=== PATIENT | male | born 1985 | race Hispanic/Latino ===

== ENCOUNTER 2017-04-28 02:24 | Inpatient (IN) | payer MEDICAID ==
[2017-04-28 02:25] VITALS: BMI 37.6
--- NOTE | 2017-04-28 03:23 | ED PDOC ---
Arrival/HPI - General Chief Complaint: Psychiatric Evaluation Time Seen by Provider: 04/28/17 02:46 Historian: Patient, Other (medical record) - History of Present Illness Narrative History of Present Illness (Text): 32yoM, who was recently discharged from OSH for suicidal ideation/cutting and now recurrent thoughts to harm himself with superficial abrasions to the chest wall, but no n/v/seay/dizziness/sob/chest pain/abdomen pain/numbness/tingling/ loss of limb function/pain with urination/thoughts to harm others or hallucinations. 04/28/17 03:20 Time/Duration: Prior to Arrival Symptom Onset: Gradual Symptom Course: Unchanged Quality: Other (no pain) Activities at Onset: Rest Context: Sitting Past Medical History - Provider Review Nursing Documentation Reviewed: Yes - Travel History Have you recently traveled outside [place] w/in the past 3 mons?: No - Infectious Disease Hx of Infectious Diseases: None - Cardiac Hx Cardiac Disorders: No Hx Hypertension: No - Pulmonary Hx Respiratory Disorders: No Hx Tuberculosis: No - Neurological Hx Neurological Disorder: No Hx Seizures: No - HEENT Hx HEENT Disorder: No - Renal Hx Renal Disorder: No - Endocrine/Metabolic Hx Endocrine Disorders: No - Hematological/Oncological Hx Blood Disorders: No - Integumentary Hx Dermatological Disorder: No - Musculoskeletal/Rheumatological Hx Musculoskeletal Disorders: No - Gastrointestinal Hx Gastrointestinal Disorders: No - Genitourinary/Gynecological Hx Genitourinary Disorders: No Hx Sexually Transmitted Diseases: No - Psychiatric Hx Anxiety: Yes Hx Depression: Yes Hx Substance Use: Yes - Anesthesia Hx Anesthesia: No Hx Anesthesia Reactions: No Family/Social History - Physician Review Nursing Documentation Reviewed: Yes Family/Social History: Unknown Family HX Smoking Status: Heavy Smoker > 10 Cigarettes Daily Hx Alcohol Use: No Hx Substance Use: Yes Allergies/Home Meds Allergies/Adverse Reactions: Allergies No Known Allergies Allergy (Verified 04/29/17 03:02) Review of Systems - Review of Systems Constitutional: Normal Eyes: Normal ENT: Normal Respiratory: Normal Cardiovascular: Normal Gastrointestinal: Normal Genitourinary Male: Normal Musculoskeletal: Normal Skin: Other (chest wall superficial abrasions multiple) Neurological: Normal Endocrine: Normal Hemo/Lymphatic: Normal Psychiatric: Anxiety, Depression, Suicidal Ideation Physical Exam Vital Signs Reviewed: Yes Vital Signs Temp Pulse Resp BP Pulse Ox 04/28/17 11:00 65 19 135/87 99 04/28/17 09:04 69 17 137/90 99 04/28/17 09:03 97 F L 72 18 138/96 H 98 04/28/17 08:00 72 16 144/94 H 98 04/28/17 05:18 97.9 F 65 19 140/100 H 100 04/28/17 02:25 97.9 F 68 18 150/102 H 96 Temperature: Afebrile Blood Pressure: Hypertensive Pulse: Regular Respiratory Rate: Normal Appearance: Positive for: Well-Appearing, Non-Toxic, Comfortable Pain Distress: None Mental Status: Positive for: Alert and Oriented X 3 - Systems Exam Head: Present: Atraumatic, Normocephalic Pupils: Present: PERRL Extroacular Muscles: Present: EOMI Conjunctiva: Present: Normal Ears: Present: Normal Mouth: Present: Moist Mucous Membranes Pharnyx: Present: Normal Nose (External): Present: Atraumatic Nose (Internal): Present: Normal Inspection Neck: Present: Normal Range of Motion Respiratory/Chest: Present: Clear to Auscultation, Good Air Exchange Cardiovascular: Present: Regular Rate and Rhythm Abdomen: No: Tenderness, Distention, Normal Bowel Sounds, Peritoneal Signs, Rebound, Guarding, McBurney's Point Tender, Rovsing's Sign Present, Hernias, Feeding Tubes, Ostomy Tubes, Mass/Organomegaly, Scars, Other Back: Present: Normal Inspection Upper Extremity: Present: Normal Inspection Lower Extremity: Present: Normal Inspection Neurological: Present: GCS=15, CN II-XII Intact, Speech Normal, Motor Func Grossly Intact Skin: Present: Warm, Other (anterior chest wall with multipel superficial abrasions) Psychiatric: Present: Alert, Oriented x 3, Anxious, Depressed Mood, Suicidal Ideation. No: Normal Insight, Normal Concentration, Normal Affect, Normal Mood , Agitated, Homicidal Ideation, Delusional, Hallucinations, Intoxicated, Lethargic, Other Medical Decision Making ED Course and Treatment: 32yoM, who was recently discharged from OSH for suicidal ideation/cutting and now recurrent thoughts to harm himself with superficial abrasions to the chest wall, but no n/v/seay/dizziness/sob/chest pain/abdomen pain/numbness/tingling/ loss of limb function/pain with urination/thoughts to harm others or hallucinations. bacitracin ointment to wounds 04/28/17 03:25 04/28/17 03:26 ECG: NSR 04/28/17 04:01 wbc 14 hb 14 plts 265 Trop < 0.01 04/28/17 04:02 CXR no acute 04/28/17 05:59 UA LE/Nit neg 04/28/17 05:59 04/28/17 06:01 PES awaiting psychiatry input. 04/28/17 06:[address] Templeton to fu. 04/28/17 07:16 Dr. Campos psychiatry stated will come and eval pt in the ED. - Lab Interpretations Lab Results: 04/28/17 03:03 04/28/17 03:03 Lab Results 04/28/17 04:40: Urine Opiates Screen Negative, Urine Methadone Screen Negative, Ur Barbiturates Screen Negative, Ur Phencyclidine Scrn Negative, Ur Amphetamines Screen Negative, U Benzodiazepines Scrn Positive, U Oth Cocaine Metabols Negative, U Cannabinoids Screen Negative 04/28/17 04:40: Urine Color Yellow, Urine Appearance Clear, Urine pH 6.0, Ur Specific [place] 1.025, Urine Protein Negative, Urine Glucose (UA) Negative, Urine Ketones Trace H, Urine Blood Negative, Urine Nitrate Negative, Urine Bilirubin Negative, Urine Urobilinogen 0.2, Ur Leukocyte Esterase Negative 04/28/17 03:03: Alcohol, Quantitative < 10 04/28/17 03:03: Salicylates < 1 L, Acetaminophen < 10.0 L 04/28/17 03:03: Sodium 142, Potassium 4.2, Chloride 101, Carbon Dioxide 31, Anion Gap 14, BUN 18, Creatinine 1.0, Est GFR ( Amer) > 60, Est GFR (Non- Af Amer) > 60, Random Glucose 103, Calcium 10.2, Total Bilirubin 0.2, AST 34, ALT 35, Alkaline Phosphatase 81, Troponin I < 0.01, Total Protein 7.4, Albumin 4.3, Globulin 3.1, Albumin/Globulin Ratio 1.4 04/28/17 03:03: WBC 14.8 H, RBC 4.80, Hgb 14.9, Hct 44.0, MCV 91.7, MCH 31.0, MCHC 33.9, RDW 12.0, Plt Count 265, MPV 12.1 H, Gran % 70.9 H, Lymph % (Auto) 19.9 L, [place] % (Auto) 7.4 H, Eos % (Auto) 1.6, Baso % (Auto) 0.2, Gran # 10.46 H , Lymph # (Auto) 2.9, [place] # (Auto) 1.1 H, Eos # (Auto) 0.2, Baso # (Auto) 0.03 I have reviewed the lab results: Yes - RAD Interpretation Radiology Orders: 04/28/17 03:08 CHEST PORTABLE [RAD] Stat [facility] Director: ED Physician (cxr no acute) - EKG Interpretation Interpreted by ED Physician: Yes (NSR) Type: 12 lead EKG - Medication Orders Current Medication Orders: Acetaminophen (Tylenol 325mg Tab) 650 mg PO Q4 PRN PRN Reason: Pain, moderate (4-7) Last Admin: 04/30/17 18:39 Dose: 650 mg Re-Assess: MAR Pain/Vitals Document 04/30/17 19:39 WP (Rec: 05/01/17 03:26 WP [id number]) Pain Reassessment Is This A Pain ReAssessment? Yes Sleep Is patient sleeping during reassessment? Yes Al Hydrox/Mg Hydrox/Simethicone (Maalox Plus 30 Ml) 30 ml PO DAILY PRN PRN Reason: Upset Stomach Bacitracin (Bacitracin) 1 gm TOP [facility] Last Admin: 05/09/17 22:00 Dose: 1 appful Clonazepam (Klonopin) 1 mg PO TID JUDAH PRN Reason: Protocol Last Admin: 05/09/17 17:24 Dose: 1 mg Behavioural Document 05/09/17 17:24 RAYA (Rec: 05/09/17 17:24 RAYA [id number]) Maintenance Maintenance Dose Yes Re-Assess: Reassess Psych Meds Document 05/09/17 18:24 RAYA (Rec: 05/09/17 19:09 RAYA [id number]) Reassess Psych Med Effective Diphenhydramine HCl (Benadryl) 50 mg IM Q6H PRN PRN Reason: Agitation Last Admin: 05/08/17 18:45 Dose: 50 mg IM Administration Charges Document 05/08/17 18:45 ABO (Rec: 05/08/17 18:45 ABO [id number]) Injection Site MAR Injection Site Left Gluteus Medius Charges for Administration # of IM Administrations 1 Diphenhydramine HCl (Benadryl) 50 mg PO Q6H PRN PRN Reason: Agitation Last Admin: 05/09/17 10:52 Dose: 50 mg Divalproex Sodium (Depakote Dr(*Bid*)) 500 mg PO AMHS JUDAH PRN Reason: Protocol Last Admin: 05/09/17 21:03 Dose: 500 mg Behavioural Document 05/09/17 21:03 CLI (Rec: 05/09/17 21:03 CLI [id number]) Maintenance Maintenance Dose Yes Re-Assess: Reassess Psych Meds Document 05/09/17 22:03 CLI (Rec: 05/10/17 00:07 CLI [id number]) Reassess Psych Med Effective Fluoxetine HCl (Prozac) 40 mg PO DAILY UJDAH Last Admin: 05/09/17 08:20 Dose: 40 mg Gabapentin (Neurontin) 400 mg PO TID JUDAH PRN Reason: Protocol Last Admin: 05/09/17 17:24 Dose: 400 mg Behavioural Document 05/09/17 17:24 RAYA (Rec: 05/09/17 17:24 RAYA [id number]) Maintenance Maintenance Dose Yes Re-Assess: Reassess Psych Meds Document 05/09/17 18:24 RAYA (Rec: 05/09/17 19:09 RAYA [id number]) Reassess Psych Med Effective Haloperidol (Haldol) 5 mg PO Q6H PRN; Protocol PRN Reason: Agitation Last Admin: 05/09/17 10:52 Dose: 5 mg Behavioural Document 05/09/17 10:52 RAYA (Rec: 05/09/17 10:52 RAYA [id number]) Maintenance Maintenance Dose No Nonmedicinal Nonmedicinal Interventions See nurse's notes Behavior Behavior for Medication: Anxiety Re-Assess: Reassess Psych Meds Document 05/09/17 11:52 RAYA (Rec: 05/09/17 12:15 RAYA [id number]) Reassess Psych Med Effective Haloperidol Lactate (Haldol) 5 mg IM Q6H PRN PRN Reason: Agitation Last Admin: 05/08/17 18:44 Dose: 5 mg IM Administration Charges Document 05/08/17 18:44 ABO (Rec: 05/08/17 18:44 ABO [id number]) Charges for Administration # of IM Administrations 1 Behavioural Document 05/08/17 18:44 ABO (Rec: 05/08/17 18:44 ABO [id number]) Maintenance Maintenance Dose No Nonmedicinal Nonmedicinal Interventions See nurse's notes Behavior Behavior for Medication: Continuous pacing/restlessness Re-Assess: Reassess Psych Meds Document 05/08/17 19:44 WP (Rec: 05/08/17 22:31 WP [id number]) Reassess Psych Med Effective Ibuprofen (Motrin Tab) 400 mg PO Q6H PRN PRN Reason: Pain, Mild (1-3) Last Admin: 05/09/17 09:46 Dose: 400 mg MAR Pain/Vitals Document 05/09/17 09:46 RAYA (Rec: 05/09/17 09:47 RAYA [id number]) Pain Reassessment Is This A Pain ReAssessment? No Sleep Is patient sleeping during reassessment? No Presence of Pain Presence of Pain Yes Pain Scale Used Pain Scale Used Numeric Location Left, Right or Bilateral Right Upper or Lower Upper Pain Location Body Site Thigh Description Intermittent Intensity 3 Pain Behavior Rubbing Site Re-Assess: MAR Pain/Vitals Document 05/09/17 10:46 RAYA (Rec: 05/09/17 10:49 RAYA [id number]) Pain Reassessment Is This A Pain ReAssessment? Yes Sleep Is patient sleeping during reassessment? No Presence of Pain Presence of Pain No Lorazepam (Ativan) 2 mg IM Q6H PRN; Protocol PRN Reason: Agitation Last Admin: 05/08/17 19:32 Dose: 2 mg IM Administration Charges Document 05/08/17 19:32 ABO (Rec: 05/08/17 19:35 ABO [id number]) Injection Site MAR Injection Site Right Gluteus Medius Charges for Administration # of IM Administrations 1 Behavioural Document 05/08/17 19:32 ABO (Rec: 05/08/17 19:35 ABO [id number]) Maintenance Maintenance Dose No Nonmedicinal Nonmedicinal Interventions See nurse's notes Behavior Behavior for Medication: Continuous pacing/restlessness Dangers to self/others Re-Assess: Reassess Psych Meds Document 05/08/17 20:02 WP (Rec: 05/08/17 22:31 WP [id number]) Reassess Psych Med Effective Lorazepam (Ativan) 2 mg PO Q6H PRN; Protocol PRN Reason: Agitation Last Admin: 05/09/17 10:52 Dose: 2 mg Behavioural Document 05/09/17 10:52 RAYA (Rec: 05/09/17 10:52 RAYA [id number]) Maintenance Maintenance Dose No Nonmedicinal Nonmedicinal Interventions See nurse's notes Behavior Behavior for Medication: Anxiety Re-Assess: Reassess Psych Meds Document 05/09/17 11:52 RAYA (Rec: 05/09/17 12:15 RAYA [id number]) Reassess Psych Med Effective Magnesium Hydroxide (Milk Of Magnesia) 30 ml PO DAILY PRN PRN Reason: Constipation Last Admin: 05/09/17 07:17 Dose: 30 ml Pantoprazole Sodium (Protonix Ec Tab) 40 mg PO 0600 JUDAH Last Admin: 05/09/17 07:37 Dose: 40 mg Quetiapine Fumarate (Seroquel) 400 mg PO AMHS JUDAH PRN Reason: Protocol Last Admin: 05/09/17 21:03 Dose: 400 mg Behavioural Document 05/09/17 21:03 CLI (Rec: 05/09/17 21:03 CLI [id number]) Maintenance Maintenance Dose Yes Re-Assess: Reassess Psych Meds Document 05/09/17 22:03 CLI (Rec: 05/10/17 00:07 CLI [id number]) Reassess Psych Med Effective Discontinued Medications Clonazepam (Klonopin) 2 mg PO STAT STA PRN Reason: Protocol Stop: 04/28/17 13:17 Last Admin: 04/28/17 13:33 Dose: 2 mg Behavioural Document 04/28/17 13:33 RGO (Rec: 04/28/17 13:33 RGO [id number]) Maintenance Maintenance Dose Yes Clonazepam (Klonopin) 1 mg PO ONCE ONE PRN Reason: Protocol Stop: 05/02/17 21:01 Last Admin: 05/02/17 21:02 Dose: 1 mg Behavioural Document 05/02/17 21:02 CLI (Rec: 05/02/17 21:02 CLI [id number]) Maintenance Maintenance Dose Yes Nonmedicinal Comment missed 6pm dose Re-Assess: Reassess Psych Meds Document 05/02/17 22:02 CLI (Rec: 05/03/17 01:19 CLI [id number]) Reassess Psych Med Effective Divalproex Sodium (Depakote Dr(*Bid*)) 500 mg PO BID JUDAH PRN Reason: Protocol Gabapentin (Neurontin) 400 mg PO ONCE ONE PRN Reason: Protocol Stop: 05/03/17 20:58 Last Admin: 05/04/17 06:26 Dose: Not Given Non-Admin Reason: Patient Refused Behavioural Document 05/04/17 06:26 EOO (Rec: 05/04/17 06:27 EOO [id number]) Maintenance Maintenance Dose No Quetiapine Fumarate (Seroquel) 300 mg PO STAT STA PRN Reason: Protocol Stop: 04/28/17 13:16 Last Admin: 04/28/17 13:33 Dose: 300 mg Behavioural Document 04/28/17 13:33 RGO (Rec: 04/28/17 13:33 RGO [id number]) Maintenance Maintenance Dose Yes Quetiapine Fumarate (Seroquel) 300 mg PO AMHS JUDAH PRN Reason: Protocol Last Admin: 05/05/17 09:33 Dose: 300 mg Behavioural Document 05/05/17 09:33 DC (Rec: 05/05/17 09:33 DC [id number]) Maintenance Maintenance Dose Yes Re-Assess: Reassess Psych Meds Document 05/05/17 10:33 DC (Rec: 05/05/17 13:44 DC [id number]) Reassess Psych Med Effective Trimethoprim/Sulfamethoxazole (Bactrim Ds Tab) 1 tab PO STAT STA PRN Reason: Protocol Stop: 04/28/17 09:07 Last Admin: 04/28/17 11:48 Dose: 1 tab Disposition/Present on Arrival - Present on Arrival Any Indicators Present on Arrival: No History of DVT/PE: No History of Uncontrolled Diabetes: No Urinary Catheter: No History of Decub. Ulcer: No History Surgical Site Infection Following: None - Disposition Have Diagnosis and Disposition been Completed?: Yes Diagnosis: Depression Disposition: HOSPITALIZED Disposition Time: 05:21 Patient Plan: Admission Patient Problems: Current Active Problems Problem Status Onset Depression Acute Bipolar 1 disorder, depressed, severe Acute Condition: STABLE
[2017-04-28 03:29] LABS: ACETAMINOPHEN < 10.0 ug/ml (10.0-20.0); SALICYLATE < 1 mg/dL (2.0-20.0)
[2017-04-28 03:30] LABS: ALB/GLOB RATIO 1.4 (1.1-1.8); ALBUMIN 4.3 g/dL (3.0-4.8); ALT/SGPT 35 U/L (7-56); AST/SGOT 34 U/L (17-59); BLOOD UREA NITROGEN 18 mg/dL (7-21); CALCIUM 10.2 mg/dL (8.4-10.5); GFR AFRICAN-AMERICAN > 60; GFR NON-AFRICAN AMERICAN > 60
[2017-04-28 03:41] LABS: TROPONIN I < 0.01 ng/mL
[2017-04-28 03:45] LABS: BASO # 0.03 K/mm3 (0.0-2.0); BASO % 0.2 % (0.0-3.0); EOS # 0.2 (0.0-0.7); EOS % 1.6 % (1.5-5.0); GRAN # 10.46 (1.4-6.5); GRAN % 70.9 % (50.0-68.0); HEMOGLOBIN 14.9 g/dL (14.0-18.0); LYMPH # 2.9 (1.2-3.4); LYMPH % 19.9 % (22.0-35.0); MEAN CELL VOLUME 91.7 fl (80.0-105.0); MEAN CORPUSCULAR HGB CONC 33.9 g/dl (31.0-37.0); MEAN PLATELET VOLUME 12.1 fl (7.0-11.0); MONO # 1.1 (0.1-0.6); MONO % 7.4 % (1.0-6.0); RBC 4.8 10^6/uL (3.5-6.1); WHITE BLOOD COUNT 14.8 10^3/ul (4.5-11.0)
[2017-04-28 04:50] LABS: URINE BILIRUBIN NEGATIVE (NEGATIVE); URINE BLOOD NEGATIVE (NEGATIVE); URINE GLUCOSE (UA) NEGATIVE (NEGATIVE); URINE LEUKOCYTE ESTERASE NEGATIVE Leu/uL (NEGATIVE); URINE NITRATE NEGATIVE (NEGATIVE); URINE PROTEIN NEGATIVE mg/dL (<30 mg/dL); URINE UROBILINOGEN 0.2 E.U./dL (<1 E.U./dL)
[2017-04-28 04:54] LABS: URINE APPEARANCE CLEAR (CLEAR); URINE COLOR YELLOW (YELLOW)
[2017-04-28 05:36] LABS: BARBITURATES, UR NEGATIVE (NEGATIVE); BENZODIAZEPINES, UR POSITIVE (NEGATIVE); OPIATES, UR NEGATIVE (NEGATIVE); PHENCYCLIDINE, UR NEGATIVE (NEGATIVE)
--- NOTE | 2017-04-28 07:07 | ED PDOC ---
Physical Exam Vital Signs Temp Pulse Resp BP Pulse Ox 04/28/17 09:03 97 F L 72 18 138/96 H 98 04/28/17 08:00 72 16 144/94 H 98 04/28/17 05:18 97.9 F 65 19 140/100 H 100 04/28/17 02:25 97.9 F 68 18 150/102 H 96 Medical Decision Making ED Course and Treatment: 04/28/17 07:00 Case signed out to me by Dr. Hartman. Patient is a 32 year old male, with complaints of suicidal ideation. Patient is medically clear. On labs patient's white count was 14.8. His Chest X-ray was normal. Currently pending psych evaluation from Dr. Beth Gallardo. 04/28/17 09:00 Dr. Merlos is on bed side and evaluated the patient for psych admission. It was noted patient having abrasions to chest with surrounding erythema. Dr. Merlos accepts patient to psych service and will get medical evaluation. - Lab Interpretations Lab Results: 04/28/17 03:03 04/28/17 03:03 Lab Results 04/28/17 04:40: Urine Opiates Screen Negative, Urine Methadone Screen Negative, Ur Barbiturates Screen Negative, Ur Phencyclidine Scrn Negative, Ur Amphetamines Screen Negative, U Benzodiazepines Scrn Positive, U Oth Cocaine Metabols Negative, U Cannabinoids Screen Negative 04/28/17 04:40: Urine Color Yellow, Urine Appearance Clear, Urine pH 6.0, Ur Specific [place] 1.025, Urine Protein Negative, Urine Glucose (UA) Negative, Urine Ketones Trace H, Urine Blood Negative, Urine Nitrate Negative, Urine Bilirubin Negative, Urine Urobilinogen 0.2, Ur Leukocyte Esterase Negative 04/28/17 03:03: Alcohol, Quantitative < 10 04/28/17 03:03: Salicylates < 1 L, Acetaminophen < 10.0 L 04/28/17 03:03: Sodium 142, Potassium 4.2, Chloride 101, Carbon Dioxide 31, Anion Gap 14, BUN 18, Creatinine 1.0, Est GFR ( Amer) > 60, Est GFR (Non- Af Amer) > 60, Random Glucose 103, Calcium 10.2, Total Bilirubin 0.2, AST 34, ALT 35, Alkaline Phosphatase 81, Troponin I < 0.01, Total Protein 7.4, Albumin 4.3, Globulin 3.1, Albumin/Globulin Ratio 1.4 04/28/17 03:03: WBC 14.8 H, RBC 4.80, Hgb 14.9, Hct 44.0, MCV 91.7, MCH 31.0, MCHC 33.9, RDW 12.0, Plt Count 265, MPV 12.1 H, Gran % 70.9 H, Lymph % (Auto) 19.9 L, [place] % (Auto) 7.4 H, Eos % (Auto) 1.6, Baso % (Auto) 0.2, Gran # 10.46 H , Lymph # (Auto) 2.9, [place] # (Auto) 1.1 H, Eos # (Auto) 0.2, Baso # (Auto) 0.03 - RAD Interpretation Radiology Orders: 04/28/17 03:08 CHEST PORTABLE [RAD] Stat - Medication Orders Current Medication Orders: Discontinued Medications Trimethoprim/Sulfamethoxazole (Bactrim Ds Tab) 1 tab PO STAT STA PRN Reason: Protocol Stop: 04/28/17 09:07 - Scribe Statement The provider has reviewed the documentation as recorded by the Mickie Vo Provider Scribe Attestation: All medical record entries made by the Scribe were at my direction and personally dictated by me. I have reviewed the chart and agree that the record accurately reflects my personal performance of the history, physical exam, medical decision making, and the department course for this patient. I have also personally directed, reviewed, and agree with the discharge instructions and disposition. Disposition/Present on Arrival - Present on Arrival Any Indicators Present on Arrival: No History of DVT/PE: No History of Uncontrolled Diabetes: No Urinary Catheter: No History of Decub. Ulcer: No History Surgical Site Infection Following: None - Disposition Have Diagnosis and Disposition been Completed?: Yes Diagnosis: Depression Disposition: HOSPITALIZED Disposition Time: 07:00 Patient Problems: Current Active Problems Problem Status Onset Bipolar 1 disorder, depressed, severe Acute Depression Acute Condition: STABLE
[2017-04-28] MEDS ORDERED: Tmp-Smz 800 mg-160 mg DS Tab PO STA (09:06)
--- NOTE | 2017-04-28 09:51 | RAD ---
HISTORY: 32yoM, med eval COMPARISON: No prior. FINDINGS: LUNGS: No active pulmonary disease. PLEURA: No significant pleural effusion identified, no pneumothorax apparent. CARDIOVASCULAR: Normal. OSSEOUS STRUCTURES: No significant abnormalities. VISUALIZED UPPER ABDOMEN: Normal. OTHER FINDINGS: None. IMPRESSION: No active disease.
[2017-04-28] MEDS ORDERED: Alum-Mag Hydrox-Simethicone Susp (30 mL) PO PRN (13:08)
--- NOTE | 2017-04-28 18:01 | PCM.BM ---
<Carla Matute - Last Filed: 04/28/17 17:58> Treatment Plan Problems - Problems identified on initial assessmt anxiety Date Initiated: 04/28/17 Time Initiated: 17:00 Assessment reference: NA Status: Active Priority: 1 delusions Date Initiated: 04/28/17 Time Initiated: 17:00 Assessment reference: NA Status: Active Priority: 2 ineffective coping skills Date Initiated: 04/28/17 Time Initiated: 17:00 Assessment reference: NA Status: Active Priority: 3 Treatment assets and liabiliti Patient Assests: cooperative, ADL independent, negotiates basic needs Patient Liabilities: financial problems - Milieu Protocol Maintain good personal hygiene: daily Encourage regular showers, daily Remind patient to perform daily oral care, daily Assist patient to perform ADL's Maintain personal safety: every shift Educate patient to report safety concerns to staff, every shift Monitor environment for contraband/sharps Medication safety: Monitor for expected outcome, potential side effects: every shift, Assess barriers to learning: every shift, Assess readiness for medication education: every shift Discharge/Continuing Care - Education Needs Education Needs: Patient Medication, Patient Diagnosis/Disease Process, Patient Coping Skills, Patient Community resources, Patient Activities of Daily Living, Patient Nutrition, Patient Health Practices/Safety, Patient Personal Hygiene/ Grooming, Patient Aftercare Safety Plan - Discharge Discharge Criteria: Tolerates medication w/o severe side effects, Free of Suicidal thoughts, Free of paranoid thoughts, Free of agitation, Normal sleep pattern, Ability to care for self, No longer exhibiting s/s of withdrawal, Reduction of target symptoms Discharge to:: Home <Rahel Ramey - Last Filed: 04/28/17 18:44> - Diagnosis (1) Bipolar 1 disorder, depressed, severe Status: Acute Interventions: Treatment plan: Milieu/structure/supportive therapy Medical consult appreciated, see medical team note for more detailed info consultation for discharge plan and social issues Med management Family involvement Follow up on labs Will monitor closely evaluation for d/c planning Pt was educated about risk/benefits and alternatives of medications, coping strategies (safety plan, suicide prevention), relapse prevention, importance of follow up with psychiatrist and therapist, stay away from drugs/alcohol/smoking 04/28/17 18:46 <Blank Barnes - Last Filed: 04/29/17 08:36> Family Contact Family involvement: Family/SO is involved Family contact: Patient agrees to contact Family contact name: Nic Branch(father) [phone] Family contacted how many times per week?: 2
--- NOTE | 2017-04-28 18:52 | PCM.PSYCH ---
Initial Psychiatric Evaluation - Initial Psychiatric Evaluation Type of Admission: Voluntary Legal Status: Capacity Chief Complaint (in patient's own words): "I wanted help" Patient's Reaction to Hospitalization: Patient is a 32 year old single white male who presented to the ER after calling 911 himself because he felt like hurting himself. Patient Had been admitted to [facility] on 04/18/2017 for suicidal ideation. He was discharges on 04/24/2017 with medication and plan to attend [facility]T. He was readmitted for the same symptoms again to [facility] on 04/26/2017 and was apparently discharged 04/27/2017 (there is no discharge note) with the plan being patient to attend the IDT program starting today. When patient got home from the hospital, he was feeling suicidal because his father told him he had to live up stairs with his mother, who is an alcoholic. He wanted to continue living downstairs with his father and brothers but says his father would not let him "because of the pot". He says that he last smoked 04/12/2017 and his utox was negative so this does not make sense. He asked his father for his medication so he could take them all but his father refused. He then took a serrated steak knife into the bathroom and cut his left chest, contemplating cutting the left side of his neck as well. He called 911 himself and came to the [facility], where he was evaluated and subsequently admitted. History of Present Illness and Precipitating Events: Patient is a 32 year old single white male, hygiene and grooming adequate. He is seen today in treatment team. Patient lives in a house with his father and brothers on the first floor, his mother who is an alcoholic lives on the second floor. He has no income and last worked in February 2017. He gave permission for his father to be contacted for collateral information. He is a poor historian, appears to be trying to be cooperative but has difficulty with sequencing and recall. Patient denies any medical issues, last physical was when he went to senior living. Social and Developmental History: Patient grew up in [place] in an intact family, he is #5 of 6 siblings, with 3 broths and twin sisters. He is closest to his younger brother Ernesto who is 21. His childhood was difficult, his mother's alcoholism was severe when he was growing up. He had a learning disability which caused him difficulty in school, he did poorly and in addition did not have friends or enjoy school. He dropped out, not sure at what point and did not get his GED. His family moved to [place] for a while and he worked on the [employer] enjoyed that job. He has worked at [employer], through [employer] agencies, and his last job was at a [employer]. He went to correction for 3 years for breaking and entering and was on parole for 3 years following and is done with that now. He has been to senior living on other matters but he declined to talk about those "stupid stuff, my mom called the bridge ironworker helper on us and sent us to senior living when we were kids, she was crazy". Patient feels isolated, his symptoms keep him from going to the aftercare day program "I am not going to lie I do not feel comfortable to go there so I am not going to do it". Is willing to consider other followup, his goal for this hospitalization is to "feel better, the way I used to feel". Current Medications: Active Medications Generic Name Dose Route Start Last Admin Trade Name Freq PRN Reason Stop Dose Admin Acetaminophen 650 mg 04/28/17 13:08 Tylenol 325mg Tab PO Q4 PRN Pain, moderate (4-7) Al Hydrox/Mg Hydrox/Simethicone 30 ml 04/28/17 13:08 Maalox Plus 30 Ml PO DAILY PRN Upset Stomach Bacitracin 1 gm 04/28/17 22:00 Bacitracin TOP AMHS JUDAH Clonazepam 1 mg 04/28/17 18:00 04/28/17 18:14 Klonopin PO Not Given TID JUDAH Protocol Diphenhydramine HCl 50 mg 04/28/17 13:27 Benadryl IM Q6H PRN Agitation Diphenhydramine HCl 50 mg 04/28/17 13:28 Benadryl PO Q6H PRN Agitation Haloperidol 5 mg 04/28/17 13:18 Haldol PO Q6H PRN Agitation Protocol Haloperidol Lactate 5 mg 04/28/17 13:27 Haldol IM Q6H PRN Agitation Lorazepam 2 mg 04/28/17 13:30 Ativan IM Q6H PRN Agitation Protocol Lorazepam 2 mg 04/28/17 13:30 Ativan PO Q6H PRN Agitation Protocol Magnesium Hydroxide 30 ml 04/28/17 13:08 Milk Of Magnesia PO DAILY PRN Constipation Quetiapine Fumarate 300 mg 04/28/17 22:00 Seroquel PO AMHS JUDAH Protocol Past Psychiatric History - Past Psychiatric History Previous Treatment History: Inpatient At [facility] hospital: [facility] Nature of Treatment: Involuntary at [place] Explanation of prior treatment: Patient indicates he thinks he has tried to kill himself at least 5 times, but prior to these last admissions was not hospitalized for 9 years. He was in senior living for at least 3 of those years. History of Abuse: Denies except "senior living beatings". History of ETOH/Drug Use: No drugs till got out of senior living last used Marijuana on April 12 2017. Denies habitual use. History of Family Illness: Denied Pertinent Medical Hx (Current Medical&Sleep Prob, Allergies): Allergies Allergy/AdvReac Type Severity Reaction Status Date / Time No Known Allergies Allergy Verified 04/25/17 23:04 FLUoxetine [Prozac] 40 mg PO DAILY #30 cap 04/24/17 Gabapentin [Neurontin] 400 mg PO TID #90 cap 04/24/17 Fernley Carbonate [Fernley Carbonate 300MG] 600 mg PO BID #60 cap 04/24/17 QUEtiapine [Seroquel] 100 mg PO DAILY #30 tab 04/24/17 QUEtiapine [Seroquel] 200 mg PO HS #30 tab 04/24/17 hydrOXYzine HCl [Atarax] 50 mg PO DAILY #30 tab 04/24/17 Review of Systems - EENT Eyes: As Per HPI Ears: As Per HPI Nose/Mouth/Throat: As Per HPI - Cardiovascular Cardiovascular: As Per HPI - Respiratory Respiratory: As Per HPI - Gastrointestinal Gastrointestinal: As Per HPI - Genitourinary Genitourinary: As Per HPI - Reproductive: Male Reproductive:Male: As Per HPI - Musculoskeletal Musculoskeletal: As Par HPI - Integumentary Integumentary: As Per HPI - Neurological Neurological: As Per HPI - Psychiatric Psychiatric: As Per HPI - Endocrine Endocrine: As Per HPI - Hematologic/Lymphatic Hematologic: As Per HPI Mental Status Examination - Personal Presentation Personal Presentation: Looks stated age - Affect Affect: Blunted, Depressed - Motor Activity Motor Activity: Calm - Reliability in Providing Information Reliability in Providing Information: Fair - Speech Speech: Organized - Mood Mood: Depressed, Anxious - Formal Thought Process Formal Thought Process: Paranoia Additional comments: Patient's paranoia is a free floating mood, not specific to any person or event , it is a generalized vigilance and appearance of mistrust. - Hallucinations/Delusions Additional comments: Patient denies the presence of hallucinations or delusions - Obsessions/Compulsions Obsessions: None Compulsions: None - Cognitive Functions Orientation: Person, Place, Situation, Time Sensorium: Alert Attention/Concentration: Attentive, Easily distracted Abstract Thinking: [place] Estimate of Intelligence: Average Judgement: Imparied, as evidence by: Poor judgement - Risk Risk: Suicidal, Self-mutilation Additional comments: Patient has a history of self mutilation. He cuts his left shoulder/ chest area. He has extensive lines of cutting in a large area side by side. The area is red and macerated, there is the appearance of cellulitis in some spots, medical consult has been called. This cutting was all done in the last 24 hours with a steak knife at patient's home in an attempt to deal with his feelings. He was also feeling suicidal, there is a reddened area on the left side of his neck he tried to cut his neck but "couldn't". - Strength & Assets Inventory Strength & Assets Inventory: Family support, Cooperative - Limitations Additional comments: Patient has no income, has no ability to live independently, has significant symptoms of mental illness, has been hospitalized twice in the last month in addition to this admission. DSM 5 DX - DSM 5 DSM 5 Diagnosis: BiPolar 1 Disorder, Depressed, Severe Borderline Personality Disorder Learning Disability Unspecified Cannabis Use Disorder - Recommended/Plan of Treatment Treatment Recommendations and Plan of Treatment: Treatment plan: Milieu/structure/supportive therapy Medical consult appreciated, see medical team note for more detailed info consultation for discharge plan and social issues Med management Family involvement Follow up on labs Will monitor closely evaluation for d/c planning Pt was educated about risk/benefits and alternatives of medications, coping strategies (safety plan, suicide prevention), relapse prevention, importance of follow up with psychiatrist and therapist, stay away from drugs/alcohol/smoking Medication Rational: Patient was on Seroquel 100mg AM and 200mg HS, this was increased to 300mg AM and HS due to patient's increased agitation and paranoia as well as mood stabilization Continue Gabapentin 400mg TID for anxiety and mood stabilization Continue Prozac 40 mg AM for depression Projected ELOS: 05/05/2017 Prognosis: Guarded Discharge Plan and Discharge Criteria: Patient will no longer be suicidal, patient will have followup care, patient's symptoms will have stabilized. - Smoking Cessation Smoking Cessation Initiated: No Reason for not providing: Patient not a smoker
[2017-04-28] MEDS: Bacitracin Ointment 30 GM TUBE TOP SCH (22:09)
--- NOTE | 2017-04-29 02:45 | CARD ---
APPROVED REPORT EKG Measurement Heart [id number] ID [id number] <Conclusion> Normal sinus rhythm Normal ECG
[2017-04-29 08:04] LABS: HDL CHOLESTEROL 38 mg/dL (29-60)
[2017-04-29 08:16] LABS: LDL CHOLESTEROL 115 mg/dL (0-129)
[2017-04-29 08:20] LABS: FREE T4 0.73 ng/dL (0.78-2.19)
[2017-04-29] MEDS: Bacitracin Ointment 30 GM TUBE TOP SCH ×2 (10:00→22:00)
--- NOTE | 2017-04-29 13:31 | PCM.PYCHPN ---
Psychiatric Progress Note - Psychiatric Progress Note Patient seen today, length of contact: 30 Patient Chief Complaint: "I still feel fearful" Problems Identified/Issues Discussed: Patient is a 32 year old single white male who presented to the ER after calling 911 himself because he felt like hurting himself. Patient Had been admitted to [facility] on 04/18/2017 for suicidal ideation. He was discharges on 04/24/2017 with medication and plan to attend [facility]. He was readmitted for the same symptoms again to [facility] on 04/26/2017 and was apparently discharged 04/27/2017 (there is no discharge note) with the plan being patient to attend the IDT program starting today. When patient got home from the hospital, he was feeling suicidal because his father told him he had to live up stairs with his mother, who is an alcoholic. He wanted to continue living downstairs with his father and brothers but says his father would not let him "because of the pot". He says that he last smoked 04/12/2017 and his utox was negative so this does not make sense. He asked his father for his medication so he could take them all but his father refused. He then took a serrated steak knife into the bathroom and cut his left chest, contemplating cutting the left side of his neck as well. He called 911 himself and came to the [facility], where he was evaluated and subsequently admitted. Patient is upset, indicates that he spoke with his father and his father said he can not live at home at all. Is very worried and preoccupied with this. Reassured that SW will clarify situation. Patient has been attending groups and cooperative with unit routines. He does not socialize, but also appears less irritable today. He is concrete and repetitive in conversation, wants to be well enough to return to work. Denies any side effects from medication with the exception of dry mouth. AIMS exam negative. Questioned patient as to what the stress has been in the recent past to precipitate these symptoms and admissions , patient indicates he is unaware of any. Medical Problems: Patient indicates he thinks he has tried to kill himself at least 5 times, but prior to these last admissions was not hospitalized for 9 years. He was in detention for at least 3 of those years. Medication Change: Yes (Start Depakote for mood stabilization) Medical Record Reviewed: Yes Consults ordered or reviewed: Medical Consult per Dr Matos, thank you Mental Status Examination - Cognitive Function Orientation: Person, Place, Situation, Time - Mood Mood: Depressed, Anxious - Affect Affect: Blunted, Depressed - Formal Thought Process Formal Thought Process: Paranoia - Homicidal Ideation Homicidal Ideation: No Goal/Treatment Plan - Goal/Treatment Plan Progress Toward Problem(s) and Goals/Treatment Plan: Treatment plan: Milieu/structure/supportive therapy Medical consult appreciated, see medical team note for more detailed info SW consultation for discharge plan and social issues Med management Family involvement Follow up on labs Will monitor closely evaluation for d/c planning Pt was educated about risk/benefits and alternatives of medications, coping strategies (safety plan, suicide prevention), relapse prevention, importance of follow up with psychiatrist and therapist, stay away from drugs/alcohol/smoking Medication Rational: Patient was on Seroquel 100mg AM and 200mg HS, this was increased to 300mg AM and HS due to patient's increased agitation and paranoia as well as mood stabilization Continue Gabapentin 400mg TID for anxiety and mood stabilization Continue Prozac 40 mg AM for depression
--- NOTE | 2017-04-29 15:12 | CP.PCM.HP ---
<Adolfo Mathew - Last Filed: 04/29/17 15:06> History of Present Illness - History of Present Illness History of Present Illness: MEDICINE CONSULT NOTE Mr. Branch is a 32 year old male with a past medical history significant for anxiety and depression who presented to the [facility] ED with a chief complaint of depression and suicidal ideation with associated self mutilation to the left forearm and anterior chest wall. 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 Patient reports that he has done this in the past "a few times". Patient denies any other complaints at this time including fever, chills, changes in his vision , headache, sore throat, neck pain, chest pain, palpitations, syncope, SOB, wheezing, cough, sputum, abdominal pain, N/V/D/C, urinary symptoms, or any numbness/tingling/weakness of any extremity. PMH: Anxiety and Depression PSH: Denies Family: Uncle-[place] in 80's Social: Current smoker with 4.5 year pack smoking history (1/2 pack/day since the age of 23), denies alcohol use and former user of marijuana but denies any other history of illicit drug abuse or IVDU Allergies: NKDA Home Medications: As per MAR Present on Admission - Present on Admission Any Indicators Present on Admission: No Review of Systems - Review of Systems Review of Systems: As per MAR, otherwise negative Past Patient History - Infectious Disease Hx of Infectious Diseases: None - Tetanus Immunizations Tetanus Immunization: Up to Date - Past Social History Smoking Status: Heavy Smoker > 10 Cigarettes Daily - CARDIAC Hx Cardiac Disorders: No Hx Hypertension: No - PULMONARY Hx Respiratory Disorders: No Hx Tuberculosis: No - NEUROLOGICAL Hx Neurological Disorder: No Hx Seizures: No - HEENT Hx HEENT Problems: No - RENAL Hx Chronic Kidney Disease: No - ENDOCRINE/METABOLIC Hx Endocrine Disorders: No - HEMATOLOGICAL/ONCOLOGICAL Hx Blood Disorders: No - INTEGUMENTARY Hx Dermatological Problems: No - MUSCULOSKELETAL/RHEUMATOLOGICAL Hx Musculoskeletal Disorders: No - GASTROINTESTINAL Hx Gastrointestinal Disorders: No - GENITOURINARY/GYNECOLOGICAL Hx Genitourinary Disorders: No Hx Sexually Transmitted Disorders: No - PSYCHIATRIC Hx Substance Use: No - SURGICAL HISTORY Hx Surgeries: No - ANESTHESIA Hx Anesthesia: No Hx Anesthesia Reactions: No Meds Allergies/Adverse Reactions: Allergies Allergy/AdvReac Type Severity Reaction Status Date / Time No Known Allergies Allergy Verified 04/29/17 03:02 Physical Exam - Constitutional Appears: Non-toxic, No Acute Distress - Head Exam Head Exam: ATRAUMATIC, NORMOCEPHALIC - Eye Exam Eye Exam: EOMI, Normal appearance, PERRL - ENT Exam ENT Exam: Mucous Membranes Moist, Normal Exam - Neck Exam Neck exam: Positive for: Full Rom, Normal Inspection. Negative for: Lymphadenopathy - Respiratory Exam Respiratory Exam: Chest Wall Tenderness (Multiple superficial lacerations to anterior chest wall with several areas of granulation tissue formation and no signs of overt clinical infection), Clear to Auscultation Bilateral, NORMAL BREATHING PATTERN. absent: Accessory Muscle Use, Decreased Breath Sounds, Prolonged Expiratory Phase, Rales, Rhonchi, Wheezes, Respiratory Distress, Stridor - Cardiovascular Exam Cardiovascular Exam: REGULAR RHYTHM, RRR, +S1, +S2. absent: Bradycardia, Tachycardia - GI/Abdominal Exam GI & Abdominal Exam: Normal Bowel Sounds, Soft. absent: Distended, Firm, Guarding, Rebound, Tenderness - Extremities Exam Extremities exam: Positive for: full ROM, normal capillary refill, normal inspection, pedal pulses present. Negative for: calf tenderness, joint swelling , pedal edema, tenderness Additional comments: Single superficial laceration to anterior left forearm without signs of clinical infection - Back Exam Back exam: NORMAL INSPECTION - Neurological Exam Neurological exam: Alert, CN II-XII Intact, Normal Gait, Oriented x3, Reflexes Normal - Skin Skin Exam: Dry, Normal Color, Warm Results - Vital Signs Recent Vital Signs: Last Vital Signs Temp 97.5 F L 04/29/17 07:16 Pulse 87 04/29/17 07:16 Resp 19 04/28/17 11:00 BP 101/60 04/29/17 07:16 Pulse Ox 20 L 04/29/17 07:16 - Labs Result Diagrams: 04/28/17 03:03 04/28/17 03:03 Labs: Laboratory Results - last 24 hr 04/29/17 04/29/17 07:20 07:20 Triglycerides 83 Cholesterol 167 LDL Cholesterol Direct 115 HDL Cholesterol 38 Free T4 0.73 L TSH 3rd Generation 2.01 Assessment & Plan - Assessment and Plan (Free Text) Assessment: 32 year old male with a past medical history significant for anxiety and depression who presented to the [facility] with a chief complaint of depression and suicidal ideation with associated self mutilation to the left forearm and anterior chest wall. Plan: 1. Multiple Superficial Lacerations to Anterior Chest Wall and Anterior Left Forearm -Continue daily wound care with application of dry wound dressing and Bacitracin Ointment AMHS -Continue to monitor for clinical signs of infections such as fever, chills, increased erythema and/or areas of fluctuance GI Prophylaxis: PO Protonix DVT Prophylaxis: Ambulatory Patient seen and case discussed with attending, Dr. Matos. Medicine team will sign off at this time. Please reconsult as needed. Thank you for allowing us to participate in the care of this patient. Rosalia Mathew, PGY-1 - Date & Time Date: 04/29/17 Time: 15:15 <Darron Matos - Last Filed: 04/29/17 16:13> Results - Vital Signs Recent Vital Signs: Last Vital Signs Temp 97.5 F L 04/29/17 07:16 Pulse 60 04/29/17 15:45 Resp 19 04/28/17 11:00 BP 120/70 04/29/17 15:45 Pulse Ox 20 L 04/29/17 07:16 - Labs Result Diagrams: 04/28/17 03:03 04/28/17 03:03 Labs: Laboratory Results - last 24 hr 04/29/17 04/29/17 07:20 07:20 Triglycerides 83 Cholesterol 167 LDL Cholesterol Direct 115 HDL Cholesterol 38 Free T4 0.73 L TSH 3rd Generation 2.01 Attending/Attestation - Attestation I have personally seen and examined this patient.: Yes I have fully participated in the care of the patient.: Yes I have reviewed all pertinent clinical information: Yes Notes (Text): 04/29/17 16:03 Patient was seen and examined with biomedical engineering aide. Agreed with assessment and plan. 32 yrs old male is admitted to Psychiatric floor for depression and suicide ideation. Patient does not has any active medical issue at this time.We will sign off.Please call us back if any question. Management plan was discussed in detail with patient. Education was provided.
[2017-04-30] MEDS: Pantoprazole 40 mg EC Tab PO SCH (08:11)
[2017-04-30] MEDS: Bacitracin Ointment 30 GM TUBE TOP SCH (09:10)
--- NOTE | 2017-04-30 17:29 | PCM.PYCHPN ---
Psychiatric Progress Note - Psychiatric Progress Note Patient seen today, length of contact: 30 Patient Chief Complaint: "I woke up this morning and felt great. I had no fear" Problems Identified/Issues Discussed: Patient is a 32 year old single white male who presented to the ER after calling 911 himself because he felt like hurting himself. Patient Had been admitted to [facility] on 04/18/2017 for suicidal ideation. He was discharges on 04/24/2017 with medication and plan to attend [facility]. He was readmitted for the same symptoms again to [facility] on 04/26/2017 and was apparently discharged 04/27/2017 (there is no discharge note) with the plan being patient to attend the IDT program starting today. When patient got home from the hospital, he was feeling suicidal because his father told him he had to live up stairs with his mother, who is an alcoholic. He wanted to continue living downstairs with his father and brothers but says his father would not let him "because of the pot". He says that he last smoked 04/12/2017 and his utox was negative so this does not make sense. He asked his father for his medication so he could take them all but his father refused. He then took a serrated steak knife into the bathroom and cut his left chest, contemplating cutting the left side of his neck as well. He called 911 himself and came to the [facility], where he was evaluated and subsequently admitted. Patient is seen today in a common area of the unit. He is calmer and affectively improved with some range. Hygiene and grooming are good. Patient indicates he feels the medication is "finally right". AIMS exam was negative. He is more verbal and less repetitive, evidently also talked to his father last night and he is able to live at home so he is relieved by that. Plan is to have a family meeting before patient is discharged. Patient denies feeling suicidal and no longer has the urge to cut. Cuts to left chest wall are healing well and patient denies any discomfort. He is afebrile. Today he has been taking part in groups and indicates that he is feeling more comfortable around people. His goal at discharge is to be well enough to go back to work. He is hopeful for the future. Medical Problems: Patient denies any ongoing medical issues Medication Change: No (Start Depakote for mood stabilization) Medical Record Reviewed: Yes Consults ordered or reviewed: Medical Consult per Dr Matos, thank you Mental Status Examination - Cognitive Function Orientation: Person, Place, Situation, Time - Mood Mood: Depressed, Anxious - Affect Affect: Blunted, Depressed - Formal Thought Process Formal Thought Process: Paranoia - Homicidal Ideation Homicidal Ideation: No Goal/Treatment Plan - Goal/Treatment Plan Progress Toward Problem(s) and Goals/Treatment Plan: Treatment plan: Milieu/structure/supportive therapy Medical consult appreciated, see medical team note for more detailed info SW consultation for discharge plan and social issues Med management Family involvement Follow up on labs Will monitor closely SW evaluation for d/c planning Pt was educated about risk/benefits and alternatives of medications, coping strategies (safety plan, suicide prevention), relapse prevention, importance of follow up with psychiatrist and therapist, stay away from drugs/alcohol/smoking Medication Rational: Patient was on Seroquel 100mg AM and 200mg HS, this was increased to 300mg AM and HS due to patient's increased agitation and paranoia as well as mood stabilization Continue Gabapentin 400mg TID for anxiety and mood stabilization Continue Prozac 40 mg AM for depression
[2017-05-01] MEDS: Bacitracin Ointment 30 GM TUBE TOP SCH ×3 (00:11→23:27)
[2017-05-01] MEDS: Pantoprazole 40 mg EC Tab PO SCH (07:32)
--- NOTE | 2017-05-01 16:48 | PCM.PYCHPN ---
Psychiatric Progress Note - Psychiatric Progress Note Patient seen today, length of contact: 30 Patient Chief Complaint: "I just wanted to go home" Problems Identified/Issues Discussed: Patient is a 32 year old single white male who presented to the ER after calling 911 himself because he felt like hurting himself. Patient Had been admitted to [facility] on 04/18/2017 for suicidal ideation. He was discharges on 04/24/2017 with medication and plan to attend [facility] [place] [facility]. He was readmitted for the same symptoms again to [facility] on 04/26/2017 and was apparently discharged 04/27/2017 (there is no discharge note) with the plan being patient to attend the IDT program starting today. When patient got home from the hospital, he was feeling suicidal because his father told him he had to live up stairs with his mother, who is an alcoholic. He wanted to continue living downstairs with his father and brothers but says his father would not let him "because of the pot". He says that he last smoked 04/12/2017 and his utox was negative so this does not make sense. He asked his father for his medication so he could take them all but his father refused. He then took a serrated steak knife into the bathroom and cut his left chest, contemplating cutting the left side of his neck as well. He called 911 himself and came to the [facility] ER, where he was evaluated and subsequently admitted. Patient is seen today in a common area of the unit. He continues to indicate that he is feeling well, decided to put in his 48 hour notice last night. He rescinded it this morning after attending a group. Evidently his father had told him that he can go home but has to live upstairs with this mother so had decided he wants to just go home. 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 He indicates he feels his mood is more level and no longer feels suicidal or like cutting. He is concrete and sometimes random in conversation, I am unsure if this is his baseline. He is not comfortable in social situations and may have poor social skills. He spends time out of his room and attends all groups. Hygiene and grooming are good. AIMS exam is negative. Medical Problems: Patient denies any ongoing medical issues Medication Change: No Medical Record Reviewed: Yes Consults ordered or reviewed: Medical Consult per Dr Matos, thank you Mental Status Examination - Cognitive Function Orientation: Person, Place, Situation, Time - Mood Mood: Depressed, Anxious - Affect Affect: Blunted, Depressed - Formal Thought Process Formal Thought Process: Paranoia - Homicidal Ideation Homicidal Ideation: No Goal/Treatment Plan - Goal/Treatment Plan Progress Toward Problem(s) and Goals/Treatment Plan: Treatment plan: Milieu/structure/supportive therapy Medical consult appreciated, see medical team note for more detailed info consultation for discharge plan and social issues Med management Family involvement Follow up on labs Will monitor closely evaluation for d/c planning Pt was educated about risk/benefits and alternatives of medications, coping strategies (safety plan, suicide prevention), relapse prevention, importance of follow up with psychiatrist and therapist, stay away from drugs/alcohol/smoking Medication Rational: Patient was on Seroquel 100mg AM and 200mg HS, this was increased to 300mg AM and HS due to patient's increased agitation and paranoia as well as mood stabilization Continue Gabapentin 400mg TID for anxiety and mood stabilization Continue Prozac 40 mg AM for depression
[2017-05-01] MEDS: DiphenhydrAMINE 50 mg/ml Inj IM PRN (19:56)
[2017-05-02] MEDS: Pantoprazole 40 mg EC Tab PO SCH (08:52)
--- NOTE | 2017-05-02 09:38 | PCM.PYCHPN ---
Psychiatric Progress Note - Psychiatric Progress Note Patient seen today, length of contact: 25 MIN Patient Chief Complaint: "depressed" Problems Identified/Issues Discussed: I reviewed assessment and recent notes. Patient was interviewed at bedside in the open seclusion room. Patient is well known to this provider from his multiple involuntary admissions to [facility]. Patient can be aggressive and intimidating however this was as years ago, it is unclear if behavior has changed in general. Thus far he is cooperative with my questioning. Remembers me from my treatment of him at [facility]. Oriented x3. Grooming is fair. Patient reports that he is depressed. Affect is constricted, unhappy and a little edgy. He denies hallucinations or paranoia. Denies side effects or new discomfort or pain. He slept well last night. Staff notes indicate patient has been labile with periods of agitation, irritability and withdrawal. He appears to be in better control. He is visible and goes to groups. He is compliant with medications. Anxious to be discharged. There were no major behavioral issues overnight. Diagnostic Results: BiPolar 1 Disorder, Depressed, Severe Borderline Personality Disorder Learning Disability Unspecified Cannabis Use Disorder Medication Change: No Medical Record Reviewed: Yes Mental Status Examination - Cognitive Function Orientation: Person, Place, Situation, Time Attention: WNL - Mood Mood: Depressed, Anxious - Affect Affect: Blunted, Depressed, Other (constricted, unhappy and a little edgy) - Speech Speech: Appropriate - Formal Thought Process Formal Thought Process: Paranoia (denies however patient appears paranoid) - Suicidal Ideation Suicidal Ideation: No - Homicidal Ideation Homicidal Ideation: No Goal/Treatment Plan - Goal/Treatment Plan Progress Toward Problem(s) and Goals/Treatment Plan: c/w current tx and plan No new weekend labs thus far Vitals reviewed and noted below: Selected Entries 05/01/17 05/01/17 07:38 15:00 Temperature 97.9 F Pulse Rate 88 82 Respiratory 20 Rate Blood Pressure 144/87 131/90
[2017-05-02] MEDS: Bacitracin Ointment 30 GM TUBE TOP SCH ×2 (10:00→22:00)
[2017-05-03] MEDS: Pantoprazole 40 mg EC Tab PO SCH (08:22)
--- NOTE | 2017-05-03 09:28 | PCM.PYCHPN ---
Psychiatric Progress Note - Psychiatric Progress Note Patient seen today, length of contact: 25 MIN Patient Chief Complaint: "depressed" Problems Identified/Issues Discussed: I reviewed recent notes and patient was interviewed at bedside. Patient is well known to this provider from his multiple involuntary admissions to [facility]. Patient can be aggressive and intimidating however this was years ago, it is unclear if these behaviors have changed. He remembers me from my treatment at [facility]. Thus far he has been cooperating with my questioning though affect is flat, unhappy and passive. He is oriented x3 and grooming is fair. Patient reports that he remains depressed, denies any changes in his symptoms. He denies hallucinations or any side effects, new discomfort or pain. He reports that he slept well last night. Staff notes indicate patient has been labile with periods of agitation, irritability and withdrawal. Communication with his family seems to trigger his anger. Staff notes indicate that patient was loud and argumentative on the phone again yesterday. He did hang up when staff requested but required prn medication due to continued anger after hanging up. Patients self control is tenuous though it does look like he is making an effort. He is visible and goes to groups. He is compliant with medications. Still anxious but not demanding to be discharged. There were no other behavioral issues over the weekend . Diagnostic Results: BiPolar 1 Disorder, Depressed, Severe Borderline Personality Disorder Learning Disability Unspecified Cannabis Use Disorder Medication Change: No Medical Record Reviewed: Yes Mental Status Examination - Cognitive Function Orientation: Person, Place, Situation, Time Attention: WNL - Mood Mood: Depressed, Anxious - Affect Affect: Blunted, Flat, Depressed, Other (passive, unhappy ) - Speech Speech: Appropriate - Formal Thought Process Formal Thought Process: Paranoia (denies however patient appears paranoid) - Suicidal Ideation Suicidal Ideation: No - Homicidal Ideation Homicidal Ideation: No Goal/Treatment Plan - Goal/Treatment Plan Progress Toward Problem(s) and Goals/Treatment Plan: c/w current tx and plan No new weekend labs Vitals reviewed and noted below: 05/03/17 07:43 Temperature 98.1 F Pulse Rate 78 Respiratory 20 Rate Blood Pressure 148/93 H
[2017-05-03] MEDS: Bacitracin Ointment 30 GM TUBE TOP SCH ×2 (10:09→21:43)
[2017-05-03] MEDS: DiphenhydrAMINE 50 mg/ml Inj IM PRN (22:19)
[2017-05-04] MEDS: Pantoprazole 40 mg EC Tab PO SCH (07:57)
[2017-05-04] MEDS: Bacitracin Ointment 30 GM TUBE TOP SCH ×2 (09:52→21:32)
[2017-05-04] MEDS ORDERED: Divalproex 500 mg DR(BID formulation) PO SCH (16:00)
--- NOTE | 2017-05-04 20:17 | PCM.PYCHPN ---
Psychiatric Progress Note - Psychiatric Progress Note Patient seen today, length of contact: 25 MIN Patient Chief Complaint: "I got upset " Problems Identified/Issues Discussed: Patient is a 32 year old single white male who presented to the ER after calling 911 himself because he felt like hurting himself. Patient Had been admitted to [facility] on 04/18/2017 for suicidal ideation. He was discharges on 04/24/2017 with medication and plan to attend [facility] [place] [facility]. He was readmitted for the same symptoms again to [facility] on 04/26/2017 and was apparently discharged 04/27/2017 (there is no discharge note) with the plan being patient to attend the IDT program starting today. When patient got home from the hospital, he was feeling suicidal because his father told him he had to live up stairs with his mother, who is an alcoholic. He wanted to continue living downstairs with his father and brothers but says his father would not let him "because of the pot". He says that he last smoked 04/12/2017 and his utox was negative so this does not make sense. He asked his father for his medication so he could take them all but his father refused. He then took a serrated steak knife into the bathroom and cut his left chest, contemplating cutting the left side of his neck as well. He called 911 himself and came to the [facility] ER, where he was evaluated and subsequently admitted. Patient is seen today in a common area of the unit. Hygiene and grooming are good. He indicates he had 2 "episodes" over the weekend, one where he scraped the back of his right hand on the radiator in his room and rubbed the skin off a large area, and he got frustrated and was yelling when he called home several times and no one answered. Father declined family meeting. Patient takes little responsibility for his behavior, is very detached while speaking of this. Insight, judgment are poor. Patient seems to think he can get a job so this is his sole plan on discharge, is possibly considering a day program one day a week which may not be realistic. Denies being suicidal or homicidal. Medical Problems: Patient denies any ongoing medical issues Diagnostic Results: Temp Pulse Resp BP Pulse Ox 97.8 F 77 20 126/83 20 L 05/04/17 07:28 05/04/17 16:00 05/04/17 07:28 05/04/17 16:00 04/29/17 07:16 Medication Change: No Medical Record Reviewed: Yes Consults ordered or reviewed: Medical Consult per Dr Matos, thank you Mental Status Examination - Cognitive Function Orientation: Person, Place, Situation, Time Attention: WNL - Mood Mood: Depressed, Anxious - Affect Affect: Blunted, Flat, Depressed, Other (passive, unhappy ) - Speech Speech: Appropriate - Formal Thought Process Formal Thought Process: Paranoia (denies however patient appears paranoid) - Suicidal Ideation Suicidal Ideation: No - Homicidal Ideation Homicidal Ideation: No Goal/Treatment Plan - Goal/Treatment Plan Progress Toward Problem(s) and Goals/Treatment Plan: Treatment plan: Milieu/structure/supportive therapy Medical consult appreciated, see medical team note for more detailed info SW consultation for discharge plan and social issues Med management Family involvement Follow up on labs Will monitor closely SW evaluation for d/c planning Pt was educated about risk/benefits and alternatives of medications, coping strategies (safety plan, suicide prevention), relapse prevention, importance of follow up with psychiatrist and therapist, stay away from drugs/alcohol/smoking Medication Rational: Patient was on Seroquel 100mg AM and 200mg HS, this was increased to 300mg AM and HS due to patient's increased agitation and paranoia as well as mood stabilization Continue Gabapentin 400mg TID for anxiety and mood stabilization Continue Prozac 40 mg AM for depression
[2017-05-04] MEDS: Divalproex 500 mg DR(BID formulation) PO SCH (21:11)
[2017-05-04] MEDS: DiphenhydrAMINE 50 mg/ml Inj IM PRN (22:08)
[2017-05-05] MEDS: Pantoprazole 40 mg EC Tab PO SCH (08:39)
[2017-05-05] MEDS: Divalproex 500 mg DR(BID formulation) PO SCH ×2 (09:32→21:10)
[2017-05-05] MEDS: Bacitracin Ointment 30 GM TUBE TOP SCH ×2 (09:32→21:10)
--- NOTE | 2017-05-05 17:10 | PCM.PYCHPN ---
Psychiatric Progress Note - Psychiatric Progress Note Patient seen today, length of contact: 25 MIN Patient Chief Complaint: "Am I going to go home soon? " Problems Identified/Issues Discussed: Patient is a 32 year old single white male who presented to the ER after calling 911 himself because he felt like hurting himself. Patient Had been admitted to [facility] on 04/18/2017 for suicidal ideation. He was discharges on 04/24/2017 with medication and plan to attend [facility] IDT. He was readmitted for the same symptoms again to [facility] on 04/26/2017 and was apparently discharged 04/27/2017 (there is no discharge note) with the plan being patient to attend the IDT program starting today. When patient got home from the hospital, he was feeling suicidal because his father told him he had to live up stairs with his mother, who is an alcoholic. He wanted to continue living downstairs with his father and brothers but says his father would not let him "because of the pot". He says that he last smoked 04/12/2017 and his utox was negative so this does not make sense. He asked his father for his medication so he could take them all but his father refused. He then took a serrated steak knife into the bathroom and cut his left chest, contemplating cutting the left side of his neck as well. He called 911 himself and came to the [facility] ER, where he was evaluated and subsequently admitted. Patient is seen today in a common area of the unit. Hygiene and grooming are good. Patient's affect remains flat. He feels that he is doing well and the medications are good and indicates he is no longer suicidal or wishing to harm himself. He says he does not know what sets him off and takes little responsibility for his actions. Insight is poor, conversation is concrete and simplistic, this may be a product of his learning disability. Seroquel increased to decrease impulsiveness. Will continue to observe, will consider discharge at the end of the week. Medical Problems: Patient denies any ongoing medical issues Diagnostic Results: Temp Pulse Resp BP Pulse Ox 97.8 F 77 20 126/83 20 L 05/04/17 07:28 05/04/17 16:00 05/04/17 07:28 05/04/17 16:00 04/29/17 07:16 Temp Pulse Resp BP Pulse Ox 98.2 F 71 18 125/83 20 L 05/05/17 06:41 05/05/17 06:41 05/05/17 06:41 05/05/17 06:41 04/29/17 07:16 Medication Change: Yes (Seroquel increased) Medical Record Reviewed: Yes Consults ordered or reviewed: Medical Consult per Dr Matos, thank you Mental Status Examination - Cognitive Function Orientation: Person, Place, Situation, Time Attention: WNL - Mood Mood: Depressed, Anxious - Affect Affect: Blunted, Flat, Depressed, Other (passive, unhappy ) - Speech Speech: Appropriate - Formal Thought Process Formal Thought Process: Paranoia (denies however patient appears paranoid) - Suicidal Ideation Suicidal Ideation: No - Homicidal Ideation Homicidal Ideation: No Goal/Treatment Plan - Goal/Treatment Plan Progress Toward Problem(s) and Goals/Treatment Plan: Treatment plan: Milieu/structure/supportive therapy Medical consult appreciated, see medical team note for more detailed info consultation for discharge plan and social issues Med management Family involvement Follow up on labs Will monitor closely evaluation for d/c planning Pt was educated about risk/benefits and alternatives of medications, coping strategies (safety plan, suicide prevention), relapse prevention, importance of follow up with psychiatrist and therapist, stay away from drugs/alcohol/smoking Medication Rational: Patient was on Seroquel 100mg AM and 200mg HS, this was increased to 300mg AM and HS due to patient's increased agitation and paranoia as well as mood stabilization Continue Gabapentin 400mg TID for anxiety and mood stabilization Continue Prozac 40 mg AM for depression
[2017-05-05] MEDS: DiphenhydrAMINE 50 mg/ml Inj IM PRN (18:35)
--- NOTE | 2017-05-05 21:46 | CP.PCM.PN ---
<Deborah Chacon - Last Filed: 05/05/17 21:41> Subjective - Date & Time of Evaluation Date of Evaluation: 05/05/17 Time of Evaluation: 21:15 - Subjective Subjective: 32 year old male with a past medical history significant for anxiety and depression who presented to the [facility] ED with a chief complaint of depression and suicidal ideation with associated self mutilation to the left forearm and anterior chest wall. Trudy Schneider was called on the patient at 9:15 PM. Pt was agitation, cursing and calling names to a fellow female inmate at the [facility]ron. This resulted in an escalation of situation. Pt's vitals were stable. No physical contact/injury occurred at the incident. PRN PO seroquel, depakote, benadryl, haldol was given by adolescent psychiatrist. Pt was sent to quiet room. When reached at bedside, pt calm, cooperative, obeying commands. AOx3, Lungs CTA b/l. CV RRR. S1 S2. No murmurs, rubs, gallops. right arm wound noted, in healing stages. R arm portable x ray ordered to r/o any fractures. Case seen with Dr Dyson. Objective - Vital Signs/Intake and Output Vital Signs (last 24 hours): Temp Pulse Resp BP Pulse Ox 98.2 F 66 18 124/71 20 L 05/05/17 06:41 05/05/17 16:00 05/05/17 06:41 05/05/17 16:00 04/29/17 07:16 - Medications Medications: Current Medications Acetaminophen (Tylenol 325mg Tab) 650 mg PO Q4 PRN PRN Reason: Pain, moderate (4-7) Last Admin: 04/30/17 18:39 Dose: 650 mg Al Hydrox/Mg Hydrox/Simethicone (Maalox Plus 30 Ml) 30 ml PO DAILY PRN PRN Reason: Upset Stomach Bacitracin (Bacitracin) 1 gm TOP [facility] JUDAH Last Admin: 05/05/17 09:32 Dose: 1 gm Clonazepam (Klonopin) 1 mg PO TID JUDAH PRN Reason: Protocol Last Admin: 05/05/17 17:48 Dose: 1 mg Diphenhydramine HCl (Benadryl) 50 mg IM Q6H PRN PRN Reason: Agitation Last Admin: 05/05/17 18:35 Dose: 50 mg Diphenhydramine HCl (Benadryl) 50 mg PO Q6H PRN PRN Reason: Agitation Last Admin: 05/03/17 18:59 Dose: 50 mg Divalproex Sodium (Depakote Dr(*Bid*)) 500 mg PO [facility] PRN Reason: Protocol Last Admin: 05/05/17 09:32 Dose: 500 mg Fluoxetine HCl (Prozac) 40 mg PO DAILY [facility] Last Admin: 05/05/17 08:39 Dose: 40 mg Gabapentin (Neurontin) 400 mg PO TID [facility] PRN Reason: Protocol Last Admin: 05/05/17 17:48 Dose: 400 mg Haloperidol (Haldol) 5 mg PO Q6H PRN; Protocol PRN Reason: Agitation Last Admin: 05/03/17 18:59 Dose: 5 mg Haloperidol Lactate (Haldol) 5 mg IM Q6H PRN PRN Reason: Agitation Last Admin: 05/05/17 18:35 Dose: 5 mg Lorazepam (Ativan) 2 mg IM Q6H PRN; Protocol PRN Reason: Agitation Last Admin: 05/05/17 18:35 Dose: 2 mg Lorazepam (Ativan) 2 mg PO Q6H PRN; Protocol PRN Reason: Agitation Last Admin: 05/05/17 16:35 Dose: 2 mg Magnesium Hydroxide (Milk Of Magnesia) 30 ml PO DAILY PRN PRN Reason: Constipation Pantoprazole Sodium (Protonix Ec Tab) 40 mg PO 0600 [facility] Last Admin: 05/05/17 08:39 Dose: 40 mg Quetiapine Fumarate (Seroquel) 400 mg PO [facility] PRN Reason: Protocol Last Admin: 05/05/17 09:49 Dose: Not Given <Juliette Dyson - Last Filed: 05/05/17 23:18> Objective - Vital Signs/Intake and Output Vital Signs (last 24 hours): Temp Pulse Resp BP Pulse Ox 98.2 F 66 18 124/71 20 L 05/05/17 06:41 05/05/17 16:00 05/05/17 06:41 05/05/17 16:00 04/29/17 07:16 - Medications Medications: Current Medications Acetaminophen (Tylenol 325mg Tab) 650 mg PO Q4 PRN PRN Reason: Pain, moderate (4-7) Last Admin: 04/30/17 18:39 Dose: 650 mg Al Hydrox/Mg Hydrox/Simethicone (Maalox Plus 30 Ml) 30 ml PO DAILY PRN PRN Reason: Upset Stomach Bacitracin (Bacitracin) 1 gm TOP [facility] Last Admin: 05/05/17 09:32 Dose: 1 gm Clonazepam (Klonopin) 1 mg PO TID [facility] PRN Reason: Protocol Last Admin: 05/05/17 17:48 Dose: 1 mg Diphenhydramine HCl (Benadryl) 50 mg IM Q6H PRN PRN Reason: Agitation Last Admin: 05/05/17 18:35 Dose: 50 mg Diphenhydramine HCl (Benadryl) 50 mg PO Q6H PRN PRN Reason: Agitation Last Admin: 05/03/17 18:59 Dose: 50 mg Divalproex Sodium (Depakote Dr(*Bid*)) 500 mg PO [facility] PRN Reason: Protocol Last Admin: 05/05/17 09:32 Dose: 500 mg Fluoxetine HCl (Prozac) 40 mg PO DAILY [facility] Last Admin: 05/05/17 08:39 Dose: 40 mg Gabapentin (Neurontin) 400 mg PO TID [facility] PRN Reason: Protocol Last Admin: 05/05/17 17:48 Dose: 400 mg Haloperidol (Haldol) 5 mg PO Q6H PRN; Protocol PRN Reason: Agitation Last Admin: 05/03/17 18:59 Dose: 5 mg Haloperidol Lactate (Haldol) 5 mg IM Q6H PRN PRN Reason: Agitation Last Admin: 05/05/17 18:35 Dose: 5 mg Lorazepam (Ativan) 2 mg IM Q6H PRN; Protocol PRN Reason: Agitation Last Admin: 05/05/17 18:35 Dose: 2 mg Lorazepam (Ativan) 2 mg PO Q6H PRN; Protocol PRN Reason: Agitation Last Admin: 05/05/17 16:35 Dose: 2 mg Magnesium Hydroxide (Milk Of Magnesia) 30 ml PO DAILY PRN PRN Reason: Constipation Pantoprazole Sodium (Protonix Ec Tab) 40 mg PO 0600 [facility] Last Admin: 05/05/17 08:39 Dose: 40 mg Quetiapine Fumarate (Seroquel) 400 mg PO [facility] PRN Reason: Protocol Last Admin: 05/05/17 09:49 Dose: Not Given Attending/Attestation - Attestation I have personally seen and examined this patient.: Yes I have fully participated in the care of the patient.: Yes I have reviewed all pertinent clinical information, including history, physical exam and plan: Yes Notes (Text): 05/05/17 23:15 Agree with documentation. Impression:Agitation Plan: pt was just given his PRN meds for agitation. To be observed closely.
[2017-05-06 08:15] LABS: HEMOGLOBIN 14.9 g/dL (14.0-18.0); MEAN CELL VOLUME 90.7 fl (80.0-105.0); MEAN CORPUSCULAR HEMOGLOBIN 31.5 pg (25.0-35.0); MEAN CORPUSCULAR HGB CONC 34.7 g/dl (31.0-37.0); MEAN PLATELET VOLUME 11.3 fl (7.0-11.0); RBC 4.73 10^6/uL (3.5-6.1); RED CELL DISTRIBUTION WIDTH 12.1 % (11.5-14.5); WHITE BLOOD COUNT 6.4 10^3/ul (4.5-11.0)
[2017-05-06 08:27] LABS: ALB/GLOB RATIO 1.3 (1.1-1.8); ALBUMIN 3.9 g/dL (3.0-4.8); ALT/SGPT 35 U/L (7-56); AST/SGOT 21 U/L (17-59); BLOOD UREA NITROGEN 13 mg/dL (7-21); CALCIUM 9.6 mg/dL (8.4-10.5); GFR AFRICAN-AMERICAN > 60; GFR NON-AFRICAN AMERICAN > 60
[2017-05-06] MEDS: Bacitracin Ointment 30 GM TUBE TOP SCH ×2 (09:11→22:02)
[2017-05-06] MEDS: Divalproex 500 mg DR(BID formulation) PO SCH ×2 (09:11→22:02)
[2017-05-06] MEDS: Pantoprazole 40 mg EC Tab PO SCH (09:11)
--- NOTE | 2017-05-06 10:22 | PCM.BM ---
<Carla Matute - Last Filed: 05/06/17 10:19> Treatment Plan Problems - Problems identified on initial assessmt anxiety Date Initiated: 04/28/17 (met on 05/06/17 easily gets anxious and gets agitated with poor impulse control) Time Initiated: 17:00 Assessment reference: NA Status: Active Priority: 1 delusions Date Initiated: 04/28/17 ( 05/06 remain delusional,signed 48 hour notice) Time Initiated: 17:00 Assessment reference: NA Status: Active Priority: 2 ineffective coping skills Date Initiated: 04/28/17 (remain with poor coping skills) Time Initiated: 17:00 Assessment reference: NA Status: Active Priority: 3 Treatment assets and liabiliti Patient Assests: cooperative, ADL independent, negotiates basic needs Patient Liabilities: financial problems - Milieu Protocol Maintain good personal hygiene: daily Encourage regular showers, daily Remind patient to perform daily oral care, daily Assist patient to perform ADL's Maintain personal safety: every shift Educate patient to report safety concerns to staff, every shift Monitor environment for contraband/sharps Medication safety: Monitor for expected outcome, potential side effects: every shift, Assess barriers to learning: every shift, Assess readiness for medication education: every shift Milieu Narrative: Treatment plan: Milieu/structure/supportive therapy Medical consult appreciated, see medical team note for more detailed info SW consultation for discharge plan and social issues Med management Family involvement Follow up on labs Will monitor closely SW evaluation for d/c planning Pt was educated about risk/benefits and alternatives of medications, coping strategies (safety plan, suicide prevention), relapse prevention, importance of follow up with psychiatrist and therapist, stay away from drugs/alcohol/smoking Medication Rational: Patient was on Seroquel 100mg AM and 200mg HS, this was increased to 300mg AM and HS due to patient's increased agitation and paranoia as well as mood stabilization Continue Gabapentin 400mg TID for anxiety and mood stabilization Continue Prozac 40 mg AM for depression Family Contact Family involvement: Family/SO is involved Family contact: Patient agrees to contact Family contact name: Nic Branch(father) [phone] Family contacted how many times per week?: 2 Discharge/Continuing Care - Education Needs Education Needs: Patient Medication, Patient Diagnosis/Disease Process, Patient Coping Skills, Patient Community resources, Patient Activities of Daily Living, Patient Nutrition, Patient Health Practices/Safety, Patient Personal Hygiene/ Grooming, Patient Aftercare Safety Plan - Discharge Discharge Criteria: Tolerates medication w/o severe side effects, Free of Suicidal thoughts, Free of paranoid thoughts, Free of agitation, Normal sleep pattern, Ability to care for self, No longer exhibiting s/s of withdrawal, Reduction of target symptoms Discharge to:: Home - Treatment Team Participation Patient/Family/SO Statement: Treatment plan: Milieu/structure/supportive therapy Medical consult appreciated, see medical team note for more detailed info SW consultation for discharge plan and social issues Med management Family involvement Follow up on labs Will monitor closely SW evaluation for d/c planning Pt was educated about risk/benefits and alternatives of medications, coping strategies (safety plan, suicide prevention), relapse prevention, importance of follow up with psychiatrist and therapist, stay away from drugs/alcohol/smoking Medication Rational: Patient was on Seroquel 100mg AM and 200mg HS, this was increased to 300mg AM and HS due to patient's increased agitation and paranoia as well as mood stabilization Continue Gabapentin 400mg TID for anxiety and mood stabilization Continue Prozac 40 mg AM for depression Treatment Plan Review - Problem anxiety Time Initiated: 17:00 delusions Time Initiated: 17:00 ineffective coping skills Time Initiated: 17:00 <Rahel Ramey - Last Filed: 05/07/17 14:28> - Diagnosis (1) Bipolar 1 disorder, depressed, severe Status: Acute Interventions: Psychoeducation Psychopharmacology/adjustment of medications as needed/ monitoring possible side effects Evaluate pt on daily basis Compliance with medications and follow up appointments Suicide and homicide risk assessment and prevention Relapse prevention Reduction of symptoms Improve functional status Family involvement As outpatient: cognitive behavioral therapy 05/06/17 11:38
--- NOTE | 2017-05-06 10:23 | RAD ---
PROCEDURE: Bilateral hand radiographs. HISTORY: r/o fracture COMPARISON: None. FINDINGS: BONES: Right Hand: Normal. No osteoarthritic changes. Left Hand: Normal. No osteoarthritic changes. JOINTS: Right Hand: Normal. Left Hand: Normal. SOFT TISSUES: Right Hand: Normal. Left Hand: Normal. OTHER FINDINGS: None. IMPRESSION: Normal radiographs of the hands.
--- NOTE | 2017-05-06 11:44 | PCM.PYCHPN ---
Psychiatric Progress Note - Psychiatric Progress Note Patient seen today, length of contact: 25 MIN Patient Chief Complaint: "Tell me the truth, what is going to happen to me? " Problems Identified/Issues Discussed: Patient is a 32 year old single white male who presented to the ER after calling 911 himself because he felt like hurting himself. Patient Had been admitted to [facility] on 04/18/2017 for suicidal ideation. He was discharges on 04/24/2017 with medication and plan to attend [facility] IDT. He was readmitted for the same symptoms again to [facility] [place] on 04/26/2017 and was apparently discharged 04/27/2017 (there is no discharge note) with the plan being patient to attend the IDT program starting today. When patient got home from the hospital, he was feeling suicidal because his father told him he had to live up stairs with his mother, who is an alcoholic. He wanted to continue living downstairs with his father and brothers but says his father would not let him "because of the pot". He says that he last smoked 04/12/2017 and his utox was negative so this does not make sense. He asked his father for his medication so he could take them all but his father refused. He then took a serrated steak knife into the bathroom and cut his left chest, contemplating cutting the left side of his neck as well. He called 911 himself and came to the [facility], where he was evaluated and subsequently admitted. Patient is seen today in a common area of the unit. Hygiene and grooming are good. Patient's affect remains flat and he appears somewhat sedated. Last night when patient had just got on the phone he was approached by another patient who wanted to use it and was rude. He got off the phone and broke a table. Was compliant with medication and [facility] staff intervention. When asked if he could have done anything any differently patient indicates that "I just can't control myself". Alternate ways of coping discussed, patient is able to see possibilities, also able to see that this behavior is not appropriate in his home or a social or job situation but feels unable to stop/ control behavior. "It is like I flipped a switch". Feels this behavior started while he was in correction, feels using weed made this behavior and his illness worse. Patient has signed 48 hour notice, screener from [facility] to come, patient is aware, feels he needs longer term treatment. Area where he scraped his skin off the back of his right hand remains excoriated. Medical Problems: Patient denies any ongoing medical issues Diagnostic Results: Temp Pulse Resp BP Pulse Ox 97.8 F 77 20 126/83 20 L 05/04/17 07:28 05/04/17 16:00 05/04/17 07:28 05/04/17 16:00 04/29/17 07:16 Temp Pulse Resp BP Pulse Ox 98.2 F 71 18 125/83 20 L 05/05/17 06:41 05/05/17 06:41 05/05/17 06:41 05/05/17 06:41 04/29/17 07:16 Laboratory Tests 04/28/17 04/28/17 04/28/17 03:03 03:03 03:03 WBC 14.8 H RBC 4.80 Hgb 14.9 Hct 44.0 MCV 91.7 MCH 31.0 MCHC 33.9 RDW 12.0 Plt Count 265 MPV 12.1 H Gran % 70.9 H Lymph % (Auto) 19.9 L [place] % (Auto) 7.4 H Eos % (Auto) 1.6 Baso % (Auto) 0.2 Gran # 10.46 H Lymph # (Auto) 2.9 [place] # (Auto) 1.1 H Eos # (Auto) 0.2 Baso # (Auto) 0.03 Sodium 142 Potassium 4.2 Chloride 101 Carbon Dioxide 31 Anion Gap 14 BUN 18 Creatinine 1.0 Est GFR ( Amer) > 60 Est GFR (Non-Af Amer) > 60 Random Glucose 103 Calcium 10.2 Total Bilirubin 0.2 AST 34 ALT 35 Alkaline Phosphatase 81 Troponin I < 0.01 Total Protein 7.4 Albumin 4.3 Globulin 3.1 Albumin/Globulin Ratio 1.4 Triglycerides Cholesterol LDL Cholesterol Direct HDL Cholesterol Free T4 TSH 3rd Generation Urine Color Urine Appearance Urine pH Ur Specific [place] Urine Protein Urine Glucose (UA) Urine Ketones Urine Blood Urine Nitrate Urine Bilirubin Urine Urobilinogen Ur Leukocyte Esterase Salicylates < 1 L Urine Opiates Screen Urine Methadone Screen Acetaminophen < 10.0 L Ur Barbiturates Screen Valproic Acid Ur Phencyclidine Scrn Ur Amphetamines Screen U Benzodiazepines Scrn U Oth Cocaine Metabols U Cannabinoids Screen Alcohol, Quantitative RPR 04/28/17 04/28/17 04/28/17 03:03 04:40 04:40 WBC RBC Hgb Hct MCV MCH MCHC RDW Plt Count MPV Gran % Lymph % (Auto) [place] % (Auto) Eos % (Auto) Baso % (Auto) Gran # Lymph # (Auto) [place] # (Auto) Eos # (Auto) Baso # (Auto) Sodium Potassium Chloride Carbon Dioxide Anion Gap BUN Creatinine Est GFR ( Amer) Est GFR (Non-Af Amer) Random Glucose Calcium Total Bilirubin AST ALT Alkaline Phosphatase Troponin I Total Protein Albumin Globulin Albumin/Globulin Ratio Triglycerides Cholesterol LDL Cholesterol Direct HDL Cholesterol Free T4 TSH 3rd Generation Urine Color Yellow Urine Appearance Clear Urine pH 6.0 Ur Specific [place] 1.025 Urine Protein Negative Urine Glucose (UA) Negative Urine Ketones Trace H Urine Blood Negative Urine Nitrate Negative Urine Bilirubin Negative Urine Urobilinogen 0.2 Ur Leukocyte Esterase Negative Salicylates Urine Opiates Screen Negative Urine Methadone Screen Negative Acetaminophen Ur Barbiturates Screen Negative Valproic Acid Ur Phencyclidine Scrn Negative Ur Amphetamines Screen Negative U Benzodiazepines Scrn Positive U Oth Cocaine Metabols Negative U Cannabinoids Screen Negative Alcohol, Quantitative < 10 RPR 04/29/17 04/29/17 04/29/17 07:20 07:20 07:20 WBC RBC Hgb Hct MCV MCH MCHC RDW Plt Count MPV Gran % Lymph % (Auto) [place] % (Auto) Eos % (Auto) Baso % (Auto) Gran # Lymph # (Auto) [place] # (Auto) Eos # (Auto) Baso # (Auto) Sodium Potassium Chloride Carbon Dioxide Anion Gap BUN Creatinine Est GFR ( Amer) Est GFR (Non-Af Amer) Random Glucose Calcium Total Bilirubin AST ALT Alkaline Phosphatase Troponin I Total Protein Albumin Globulin Albumin/Globulin Ratio Triglycerides 83 Cholesterol 167 LDL Cholesterol Direct 115 HDL Cholesterol 38 Free T4 0.73 L TSH 3rd Generation 2.01 Urine Color Urine Appearance Urine pH Ur Specific [place] Urine Protein Urine Glucose (UA) Urine Ketones Urine Blood Urine Nitrate Urine Bilirubin Urine Urobilinogen Ur Leukocyte Esterase Salicylates Urine Opiates Screen Urine Methadone Screen Acetaminophen Ur Barbiturates Screen Valproic Acid Ur Phencyclidine Scrn Ur Amphetamines Screen U Benzodiazepines Scrn U Oth Cocaine Metabols U Cannabinoids Screen Alcohol, Quantitative RPR Nonreactive 05/06/17 05/06/17 05/06/17 07:50 07:50 07:50 WBC 6.4 D RBC 4.73 Hgb 14.9 Hct 42.9 MCV 90.7 MCH 31.5 MCHC 34.7 RDW 12.1 Plt Count 245 MPV 11.3 H Gran % Lymph % (Auto) [place] % (Auto) Eos % (Auto) Baso % (Auto) Gran # Lymph # (Auto) [place] # (Auto) Eos # (Auto) Baso # (Auto) Sodium 141 Potassium 4.2 Chloride 103 Carbon Dioxide 27 Anion Gap 15 BUN 13 Creatinine 1.0 Est GFR ( Amer) > 60 Est GFR (Non-Af Amer) > 60 Random Glucose 85 Calcium 9.6 Total Bilirubin 0.5 AST 21 ALT 35 Alkaline Phosphatase 86 Troponin I Total Protein 6.9 Albumin 3.9 Globulin 3.0 Albumin/Globulin Ratio 1.3 Triglycerides Cholesterol LDL Cholesterol Direct HDL Cholesterol Free T4 TSH 3rd Generation Urine Color Urine Appearance Urine pH Ur Specific [place] Urine Protein Urine Glucose (UA) Urine Ketones Urine Blood Urine Nitrate Urine Bilirubin Urine Urobilinogen Ur Leukocyte Esterase Salicylates Urine Opiates Screen Urine Methadone Screen Acetaminophen Ur Barbiturates Screen Valproic Acid 54 Ur Phencyclidine Scrn Ur Amphetamines Screen U Benzodiazepines Scrn U Oth Cocaine Metabols U Cannabinoids Screen Alcohol, Quantitative RPR Temp Pulse Resp BP Pulse Ox 97.7 F 73 20 120/86 20 L 05/06/17 07:16 05/06/17 07:16 05/06/17 07:16 05/06/17 07:16 04/29/17 07:16 Medication Change: No Medical Record Reviewed: Yes Consults ordered or reviewed: Medical Consult per Dr Matos, thank you Mental Status Examination - Cognitive Function Orientation: Person, Place, Situation, Time Attention: WNL - Mood Mood: Depressed, Anxious - Affect Affect: Blunted, Flat, Depressed, Other (passive, unhappy ) - Speech Speech: Appropriate - Formal Thought Process Formal Thought Process: Paranoia (denies however patient appears paranoid) - Suicidal Ideation Suicidal Ideation: No - Homicidal Ideation Homicidal Ideation: No Goal/Treatment Plan - Goal/Treatment Plan Progress Toward Problem(s) and Goals/Treatment Plan: Treatment plan: Milieu/structure/supportive therapy Medical consult appreciated, see medical team note for more detailed info SW consultation for discharge plan and social issues Med management Family involvement Follow up on labs Will monitor closely evaluation for d/c planning Pt was educated about risk/benefits and alternatives of medications, coping strategies (safety plan, suicide prevention), relapse prevention, importance of follow up with psychiatrist and therapist, stay away from drugs/alcohol/smoking Medication Rational: Patient was on Seroquel 100mg AM and 200mg HS, this was increased to 300mg AM and HS due to patient's increased agitation and paranoia as well as mood stabilization Continue Gabapentin 400mg TID for anxiety and mood stabilization Continue Prozac 40 mg AM for depression
[2017-05-07] MEDS: Pantoprazole 40 mg EC Tab PO SCH ×3 (06:18→06:50)
[2017-05-07] MEDS: Bacitracin Ointment 30 GM TUBE TOP SCH ×2 (10:51→21:00)
[2017-05-07] MEDS: Divalproex 500 mg DR(BID formulation) PO SCH ×2 (10:51→21:00)
--- NOTE | 2017-05-07 17:04 | PCM.PYCHPN ---
Psychiatric Progress Note - Psychiatric Progress Note Patient seen today, length of contact: 25 MIN Patient Chief Complaint: "I know they are going to send me to [facility], I'll go crazy there". Problems Identified/Issues Discussed: Patient is a 32 year old single white male who presented to the ER after calling 911 himself because he felt like hurting himself. Patient Had been admitted to [facility] on 04/18/2017 for suicidal ideation. He was discharges on 04/24/2017 with medication and plan to attend [facility] IDT. He was readmitted for the same symptoms again to [facility] on 04/26/2017 and was apparently discharged 04/27/2017 (there is no discharge note) with the plan being patient to attend the IDT program starting today. When patient got home from the hospital, he was feeling suicidal because his father told him he had to live up stairs with his mother, who is an alcoholic. He wanted to continue living downstairs with his father and brothers but says his father would not let him "because of the pot". He says that he last smoked 04/12/2017 and his utox was negative so this does not make sense. He asked his father for his medication so he could take them all but his father refused. He then took a serrated steak knife into the bathroom and cut his left chest, contemplating cutting the left side of his neck as well. He called 911 himself and came to the [facility], where he was evaluated and subsequently admitted. Patient is seen today in a common area of the unit. Hygiene and grooming are good. Patient's affect remains flat. He is concrete and has little insight into his behavior and illness. Does not see any possibility that he will "ever get out of [facility]". He does not connect his behavior to consequences or that he has the ability to control his behavior. He paces frequently, attends groups and participates. He is repetitive in his conversation and concerns, this may be due to his cognitive limitations. He was seen by the screener last evening and was placed under involuntary status here pending a bed being available there. He does not seem to be overly concerned by this, but I would anticipate we will need to medicate him when a bed comes available for his comfort and safety in transition. Medical Problems: Patient denies any ongoing medical issues Diagnostic Results: Temp Pulse Resp BP Pulse Ox 97.8 F 77 20 126/83 20 L 05/04/17 07:28 05/04/17 16:00 05/04/17 07:28 05/04/17 16:00 04/29/17 07:16 Temp Pulse Resp BP Pulse Ox 98.2 F 71 18 125/83 20 L 05/05/17 06:41 05/05/17 06:41 05/05/17 06:41 05/05/17 06:41 04/29/17 07:16 Laboratory Tests 04/28/17 04/28/17 04/28/17 03:03 03:03 03:03 WBC 14.8 H RBC 4.80 Hgb 14.9 Hct 44.0 MCV 91.7 MCH 31.0 MCHC 33.9 RDW 12.0 Plt Count 265 MPV 12.1 H Gran % 70.9 H Lymph % (Auto) 19.9 L [place] % (Auto) 7.4 H Eos % (Auto) 1.6 Baso % (Auto) 0.2 Gran # 10.46 H Lymph # (Auto) 2.9 [place] # (Auto) 1.1 H Eos # (Auto) 0.2 Baso # (Auto) 0.03 Sodium 142 Potassium 4.2 Chloride 101 Carbon Dioxide 31 Anion Gap 14 BUN 18 Creatinine 1.0 Est GFR ( Amer) > 60 Est GFR (Non-Af Amer) > 60 Random Glucose 103 Calcium 10.2 Total Bilirubin 0.2 AST 34 ALT 35 Alkaline Phosphatase 81 Troponin I < 0.01 Total Protein 7.4 Albumin 4.3 Globulin 3.1 Albumin/Globulin Ratio 1.4 Triglycerides Cholesterol LDL Cholesterol Direct HDL Cholesterol Free T4 TSH 3rd Generation Urine Color Urine Appearance Urine pH Ur Specific [place] Urine Protein Urine Glucose (UA) Urine Ketones Urine Blood Urine Nitrate Urine Bilirubin Urine Urobilinogen Ur Leukocyte Esterase Salicylates < 1 L Urine Opiates Screen Urine Methadone Screen Acetaminophen < 10.0 L Ur Barbiturates Screen Valproic Acid Ur Phencyclidine Scrn Ur Amphetamines Screen U Benzodiazepines Scrn U Oth Cocaine Metabols U Cannabinoids Screen Alcohol, Quantitative RPR 04/28/17 04/28/17 04/28/17 03:03 04:40 04:40 WBC RBC Hgb Hct MCV MCH MCHC RDW Plt Count MPV Gran % Lymph % (Auto) [place] % (Auto) Eos % (Auto) Baso % (Auto) Gran # Lymph # (Auto) [place] # (Auto) Eos # (Auto) Baso # (Auto) Sodium Potassium Chloride Carbon Dioxide Anion Gap BUN Creatinine Est GFR ( Amer) Est GFR (Non-Af Amer) Random Glucose Calcium Total Bilirubin AST ALT Alkaline Phosphatase Troponin I Total Protein Albumin Globulin Albumin/Globulin Ratio Triglycerides Cholesterol LDL Cholesterol Direct HDL Cholesterol Free T4 TSH 3rd Generation Urine Color Yellow Urine Appearance Clear Urine pH 6.0 Ur Specific [place] 1.025 Urine Protein Negative Urine Glucose (UA) Negative Urine Ketones Trace H Urine Blood Negative Urine Nitrate Negative Urine Bilirubin Negative Urine Urobilinogen 0.2 Ur Leukocyte Esterase Negative Salicylates Urine Opiates Screen Negative Urine Methadone Screen Negative Acetaminophen Ur Barbiturates Screen Negative Valproic Acid Ur Phencyclidine Scrn Negative Ur Amphetamines Screen Negative U Benzodiazepines Scrn Positive U Oth Cocaine Metabols Negative U Cannabinoids Screen Negative Alcohol, Quantitative < 10 RPR 04/29/17 04/29/17 04/29/17 07:20 07:20 07:20 WBC RBC Hgb Hct MCV MCH MCHC RDW Plt Count MPV Gran % Lymph % (Auto) [place] % (Auto) Eos % (Auto) Baso % (Auto) Gran # Lymph # (Auto) [place] # (Auto) Eos # (Auto) Baso # (Auto) Sodium Potassium Chloride Carbon Dioxide Anion Gap BUN Creatinine Est GFR ( Amer) Est GFR (Non-Af Amer) Random Glucose Calcium Total Bilirubin AST ALT Alkaline Phosphatase Troponin I Total Protein Albumin Globulin Albumin/Globulin Ratio Triglycerides 83 Cholesterol 167 LDL Cholesterol Direct 115 HDL Cholesterol 38 Free T4 0.73 L TSH 3rd Generation 2.01 Urine Color Urine Appearance Urine pH Ur Specific [place] Urine Protein Urine Glucose (UA) Urine Ketones Urine Blood Urine Nitrate Urine Bilirubin Urine Urobilinogen Ur Leukocyte Esterase Salicylates Urine Opiates Screen Urine Methadone Screen Acetaminophen Ur Barbiturates Screen Valproic Acid Ur Phencyclidine Scrn Ur Amphetamines Screen U Benzodiazepines Scrn U Oth Cocaine Metabols U Cannabinoids Screen Alcohol, Quantitative RPR Nonreactive 05/06/17 05/06/17 05/06/17 07:50 07:50 07:50 WBC 6.4 D RBC 4.73 Hgb 14.9 Hct 42.9 MCV 90.7 MCH 31.5 MCHC 34.7 RDW 12.1 Plt Count 245 MPV 11.3 H Gran % Lymph % (Auto) [place] % (Auto) Eos % (Auto) Baso % (Auto) Gran # Lymph # (Auto) [place] # (Auto) Eos # (Auto) Baso # (Auto) Sodium 141 Potassium 4.2 Chloride 103 Carbon Dioxide 27 Anion Gap 15 BUN 13 Creatinine 1.0 Est GFR ( Amer) > 60 Est GFR (Non-Af Amer) > 60 Random Glucose 85 Calcium 9.6 Total Bilirubin 0.5 AST 21 ALT 35 Alkaline Phosphatase 86 Troponin I Total Protein 6.9 Albumin 3.9 Globulin 3.0 Albumin/Globulin Ratio 1.3 Triglycerides Cholesterol LDL Cholesterol Direct HDL Cholesterol Free T4 TSH 3rd Generation Urine Color Urine Appearance Urine pH Ur Specific [place] Urine Protein Urine Glucose (UA) Urine Ketones Urine Blood Urine Nitrate Urine Bilirubin Urine Urobilinogen Ur Leukocyte Esterase Salicylates Urine Opiates Screen Urine Methadone Screen Acetaminophen Ur Barbiturates Screen Valproic Acid 54 Ur Phencyclidine Scrn Ur Amphetamines Screen U Benzodiazepines Scrn U Oth Cocaine Metabols U Cannabinoids Screen Alcohol, Quantitative RPR Temp Pulse Resp BP Pulse Ox 97.7 F 73 20 120/86 20 L 05/06/17 07:16 05/06/17 07:16 05/06/17 07:16 05/06/17 07:16 04/29/17 07:16 Temp Pulse Resp BP Pulse Ox 97.7 F 76 20 130/90 20 L 05/07/17 07:07 05/07/17 07:07 05/07/17 07:07 05/07/17 07:07 04/29/17 07:16 Medication Change: No Medical Record Reviewed: Yes Consults ordered or reviewed: Medical Consult per Dr Matos, thank you Mental Status Examination - Cognitive Function Orientation: Person, Place, Situation, Time Attention: WNL - Mood Mood: Depressed, Anxious - Affect Affect: Blunted, Flat, Depressed, Other (passive, unhappy ) - Speech Speech: Appropriate - Formal Thought Process Formal Thought Process: Paranoia (denies however patient appears paranoid) - Suicidal Ideation Suicidal Ideation: No - Homicidal Ideation Homicidal Ideation: No Goal/Treatment Plan - Goal/Treatment Plan Progress Toward Problem(s) and Goals/Treatment Plan: Treatment plan: Milieu/structure/supportive therapy Medical consult appreciated, see medical team note for more detailed info SW consultation for discharge plan and social issues Med management Family involvement Follow up on labs Will monitor closely SW evaluation for d/c planning Pt was educated about risk/benefits and alternatives of medications, coping strategies (safety plan, suicide prevention), relapse prevention, importance of follow up with psychiatrist and therapist, stay away from drugs/alcohol/smoking Medication Rational: Patient was on Seroquel 100mg AM and 200mg HS, this was increased to 300mg AM and HS due to patient's increased agitation and paranoia as well as mood stabilization Continue Gabapentin 400mg TID for anxiety and mood stabilization Continue Prozac 40 mg AM for depression
[2017-05-08] MEDS: Pantoprazole 40 mg EC Tab PO SCH (08:19)
[2017-05-08] MEDS: Bacitracin Ointment 30 GM TUBE TOP SCH ×2 (11:23→21:25)
[2017-05-08] MEDS: Divalproex 500 mg DR(BID formulation) PO SCH ×2 (11:25→21:25)
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
[2017-05-08] MEDS: DiphenhydrAMINE 50 mg/ml Inj IM PRN (18:45)
[2017-05-09] MEDS: Magnesium Hydroxide Susp 30 ml UD PO PRN (07:17)
[2017-05-09] MEDS: Pantoprazole 40 mg EC Tab PO SCH (07:37)
[2017-05-09] MEDS: Divalproex 500 mg DR(BID formulation) PO SCH ×2 (09:14→21:03)
--- NOTE | 2017-05-09 09:22 | PCM.PYCHPN ---
Psychiatric Progress Note - Psychiatric Progress Note Patient seen today, length of contact: 25 MIN Patient Chief Complaint: "I have anger issues" Problems Identified/Issues Discussed: I reviewed recent notes and patient was interviewed in the quiet room. Patient is well known to this provider from his multiple involuntary admissions to [facility] and prior interviews last weekend. Patient can be aggressive and intimidating however this was years ago, it is unclear if these behaviors have improved in any considerable way. He remembers me from my treatment at [facility]. Over the week patient was screened for involuntary commitment at [facility] and he is currently awaiting an open bed. As noted above, I met with patient at bedside today. He continues to appear unhappy, anxious and paranoid but affect is more reactive. Eye contact, orientation and relatedness is better than last weekend. He is oriented x3 and grooming is fair. Patient tensely acknowledges that he broke some furniture a few days ago and agrees he has problems with anger and paranoia. Abruptly asks "do you think its all the marijuana I smoke?". I review the possible side effects of marijuana including paranoia however patient doesn't appear to be genuinely considering stopping this habit. He smiles a little more readily and seems less resentful today. Nonetheless he is still labile, unpredictable and self escalates easily. Patient continues to deny hallucinations or any side effects, new discomfort or pain. Staff notes indicate patient has been labile with periods irritability, frustration and agitation. Has required multiple prns for agitation. Yesterday evening he was restless and threatening with staff and a code mikaela was called after he banged a window at the nurses station. A few hours later he punched a wall in the quiet room. Insight is fair but judgment is poor. . Diagnostic Results: BiPolar 1 Disorder, Depressed, Severe Borderline Personality Disorder Learning Disability Unspecified Cannabis Use Disorder Medication Change: No Medical Record Reviewed: Yes Mental Status Examination - Cognitive Function Orientation: Person, Place, Situation, Time Attention: WNL - Mood Mood: Depressed, Anxious, Other (I have anger issues) - Affect Affect: Blunted, Flat, Depressed, Other (labile) - Speech Speech: Appropriate - Formal Thought Process Formal Thought Process: Paranoia (denies however patient appears paranoid) - Suicidal Ideation Suicidal Ideation: No - Homicidal Ideation Homicidal Ideation: No Goal/Treatment Plan - Goal/Treatment Plan Progress Toward Problem(s) and Goals/Treatment Plan: c/w current tx and plan No new weekend labs thus far Vitals reviewed and noted below: 05/09/17 07:15 Temperature 97.9 F Pulse Rate 80 Respiratory 20 Rate Blood Pressure 121/74
[2017-05-09] MEDS: Bacitracin Ointment 30 GM TUBE TOP SCH ×2 (09:47→22:00)
[2017-05-10] MEDS: Pantoprazole 40 mg EC Tab PO SCH (08:58)
[2017-05-10] MEDS: Divalproex 500 mg DR(BID formulation) PO SCH ×2 (09:00→21:58)
[2017-05-10] MEDS: Bacitracin Ointment 30 GM TUBE TOP SCH ×2 (09:00→22:00)
--- NOTE | 2017-05-10 09:05 | PCM.PYCHPN ---
Psychiatric Progress Note - Psychiatric Progress Note Patient seen today, length of contact: 25 MIN Patient Chief Complaint: "I have anger issues" Problems Identified/Issues Discussed: I reviewed recent notes and patient was interviewed at bedside. Patient is well known to this provider from his multiple involuntary admissions to and prior interviews last weekend. Patient can be aggressive and intimidating however this was years ago, it is unclear if these behaviors have improved in any considerable way. He remembers me from my treatment at . Over the week patient was screened for involuntary commitment at [facility] and he is currently awaiting an open bed. As noted above, I met with patient at bedside again today. He is showing some improvement. In general he appears a little less anxious and paranoid. Affect is also more reactive and related. Patient is oriented x3 and grooming remains fair. Patient denies any new concerns and has been tolerating his medications. Doesn't appear to be in any physical distress. Patient worries how long he will be hospitalized at [facility]; commits to improving his behavior. He smiles a little more readily this weekend and seems less resentful. Staff notes indicate patients behavior was in better control yesterday. Prior to that he was notably labile with periods of irritability, frustration and agitation. He required multiple prns for agitation on Thursday because he was restless and threatening with staff. A jose enrique al was called after he banged a window at the nurses station. Then a few hours later he punched a wall in the quiet room. In general patient remains labile with a tendency to get frustrated and self escalate. His improvement is tenuous thus far. . Diagnostic Results: BiPolar 1 Disorder, Depressed, Severe Borderline Personality Disorder Learning Disability Unspecified Cannabis Use Disorder Medication Change: No Medical Record Reviewed: Yes Mental Status Examination - Cognitive Function Orientation: Person, Place, Situation, Time Attention: WNL - Mood Mood: Depressed, Anxious, Other (I have anger issues) - Affect Affect: Blunted, Flat, Depressed, Other (labile) - Speech Speech: Appropriate - Formal Thought Process Formal Thought Process: Paranoia (denies however patient appears paranoid) - Suicidal Ideation Suicidal Ideation: No - Homicidal Ideation Homicidal Ideation: No Goal/Treatment Plan - Goal/Treatment Plan Progress Toward Problem(s) and Goals/Treatment Plan: c/w current tx and plan~Patient currently awaiting open bed at No new weekend labs Vitals reviewed and noted below: Selected Entries 05/10/17 06:53 Temperature 97.8 F Pulse Rate 84 Respiratory 20 Rate Blood Pressure 120/84
[2017-05-11] MEDS: Pantoprazole 40 mg EC Tab PO SCH (07:05)
[2017-05-11] MEDS: Bacitracin Ointment 30 GM TUBE TOP SCH ×2 (09:00→22:00)
[2017-05-11] MEDS: Divalproex 500 mg DR(BID formulation) PO SCH ×2 (09:00→22:23)
--- NOTE | 2017-05-11 13:46 | PCM.PYCHPN ---
Psychiatric Progress Note - Psychiatric Progress Note Patient seen today, length of contact: 25 MIN Patient Chief Complaint: "I can't believe I am still here". Problems Identified/Issues Discussed: Patient is a 32 year old single white male who presented to the ER after calling 911 himself because he felt like hurting himself. Patient Had been admitted to [facility] on 04/18/2017 for suicidal ideation. He was discharges on 04/24/2017 with medication and plan to attend [facility] IDT. He was readmitted for the same symptoms again to [facility] on 04/26/2017 and was apparently discharged 04/27/2017 (there is no discharge note) with the plan being patient to attend the IDT program starting today. When patient got home from the hospital, he was feeling suicidal because his father told him he had to live up stairs with his mother, who is an alcoholic. He wanted to continue living downstairs with his father and brothers but says his father would not let him "because of the pot". He says that he last smoked 04/12/2017 and his utox was negative so this does not make sense. He asked his father for his medication so he could take them all but his father refused. He then took a serrated steak knife into the bathroom and cut his left chest, contemplating cutting the left side of his neck as well. He called 911 himself and came to the [facility] ER, where he was evaluated and subsequently admitted. Patient is seen today in a common area of the unit. Hygiene and grooming are good. Patient's affect remains flat. Patient is cooperative with unit routines and taking medication. He denies any side effects and his AIMS exam is negative. He is able to socialize appropriately with peers but is not comfortable with others who are disruptive. Feels he is "doing OK" but is anxious to get to [facility]. Awaiting a bed as patient is under involuntary status. Medical Problems: Patient denies any ongoing medical issues Diagnostic Results: Temp Pulse Resp BP Pulse Ox 97.8 F 77 20 126/83 20 L 05/04/17 07:28 05/04/17 16:00 05/04/17 07:28 05/04/17 16:00 04/29/17 07:16 Temp Pulse Resp BP Pulse Ox 98.2 F 71 18 125/83 20 L 05/05/17 06:41 05/05/17 06:41 05/05/17 06:41 05/05/17 06:41 04/29/17 07:16 Laboratory Tests 04/28/17 04/28/17 04/28/17 03:03 03:03 03:03 WBC 14.8 H RBC 4.80 Hgb 14.9 Hct 44.0 MCV 91.7 MCH 31.0 MCHC 33.9 RDW 12.0 Plt Count 265 MPV 12.1 H Gran % 70.9 H Lymph % (Auto) 19.9 L [place] % (Auto) 7.4 H Eos % (Auto) 1.6 Baso % (Auto) 0.2 Gran # 10.46 H Lymph # (Auto) 2.9 [place] # (Auto) 1.1 H Eos # (Auto) 0.2 Baso # (Auto) 0.03 Sodium 142 Potassium 4.2 Chloride 101 Carbon Dioxide 31 Anion Gap 14 BUN 18 Creatinine 1.0 Est GFR ( Amer) > 60 Est GFR (Non-Af Amer) > 60 Random Glucose 103 Calcium 10.2 Total Bilirubin 0.2 AST 34 ALT 35 Alkaline Phosphatase 81 Troponin I < 0.01 Total Protein 7.4 Albumin 4.3 Globulin 3.1 Albumin/Globulin Ratio 1.4 Triglycerides Cholesterol LDL Cholesterol Direct HDL Cholesterol Free T4 TSH 3rd Generation Urine Color Urine Appearance Urine pH Ur Specific [place] Urine Protein Urine Glucose (UA) Urine Ketones Urine Blood Urine Nitrate Urine Bilirubin Urine Urobilinogen Ur Leukocyte Esterase Salicylates < 1 L Urine Opiates Screen Urine Methadone Screen Acetaminophen < 10.0 L Ur Barbiturates Screen Valproic Acid Ur Phencyclidine Scrn Ur Amphetamines Screen U Benzodiazepines Scrn U Oth Cocaine Metabols U Cannabinoids Screen Alcohol, Quantitative RPR 04/28/17 04/28/17 04/28/17 03:03 04:40 04:40 WBC RBC Hgb Hct MCV MCH MCHC RDW Plt Count MPV Gran % Lymph % (Auto) [place] % (Auto) Eos % (Auto) Baso % (Auto) Gran # Lymph # (Auto) [place] # (Auto) Eos # (Auto) Baso # (Auto) Sodium Potassium Chloride Carbon Dioxide Anion Gap BUN Creatinine Est GFR ( Amer) Est GFR (Non-Af Amer) Random Glucose Calcium Total Bilirubin AST ALT Alkaline Phosphatase Troponin I Total Protein Albumin Globulin Albumin/Globulin Ratio Triglycerides Cholesterol LDL Cholesterol Direct HDL Cholesterol Free T4 TSH 3rd Generation Urine Color Yellow Urine Appearance Clear Urine pH 6.0 Ur Specific [place] 1.025 Urine Protein Negative Urine Glucose (UA) Negative Urine Ketones Trace H Urine Blood Negative Urine Nitrate Negative Urine Bilirubin Negative Urine Urobilinogen 0.2 Ur Leukocyte Esterase Negative Salicylates Urine Opiates Screen Negative Urine Methadone Screen Negative Acetaminophen Ur Barbiturates Screen Negative Valproic Acid Ur Phencyclidine Scrn Negative Ur Amphetamines Screen Negative U Benzodiazepines Scrn Positive U Oth Cocaine Metabols Negative U Cannabinoids Screen Negative Alcohol, Quantitative < 10 RPR 04/29/17 04/29/17 04/29/17 07:20 07:20 07:20 WBC RBC Hgb Hct MCV MCH MCHC RDW Plt Count MPV Gran % Lymph % (Auto) [place] % (Auto) Eos % (Auto) Baso % (Auto) Gran # Lymph # (Auto) [place] # (Auto) Eos # (Auto) Baso # (Auto) Sodium Potassium Chloride Carbon Dioxide Anion Gap BUN Creatinine Est GFR ( Amer) Est GFR (Non-Af Amer) Random Glucose Calcium Total Bilirubin AST ALT Alkaline Phosphatase Troponin I Total Protein Albumin Globulin Albumin/Globulin Ratio Triglycerides 83 Cholesterol 167 LDL Cholesterol Direct 115 HDL Cholesterol 38 Free T4 0.73 L TSH 3rd Generation 2.01 Urine Color Urine Appearance Urine pH Ur Specific [place] Urine Protein Urine Glucose (UA) Urine Ketones Urine Blood Urine Nitrate Urine Bilirubin Urine Urobilinogen Ur Leukocyte Esterase Salicylates Urine Opiates Screen Urine Methadone Screen Acetaminophen Ur Barbiturates Screen Valproic Acid Ur Phencyclidine Scrn Ur Amphetamines Screen U Benzodiazepines Scrn U Oth Cocaine Metabols U Cannabinoids Screen Alcohol, Quantitative RPR Nonreactive 05/06/17 05/06/17 05/06/17 07:50 07:50 07:50 WBC 6.4 D RBC 4.73 Hgb 14.9 Hct 42.9 MCV 90.7 MCH 31.5 MCHC 34.7 RDW 12.1 Plt Count 245 MPV 11.3 H Gran % Lymph % (Auto) [place] % (Auto) Eos % (Auto) Baso % (Auto) Gran # Lymph # (Auto) [place] # (Auto) Eos # (Auto) Baso # (Auto) Sodium 141 Potassium 4.2 Chloride 103 Carbon Dioxide 27 Anion Gap 15 BUN 13 Creatinine 1.0 Est GFR ( Amer) > 60 Est GFR (Non-Af Amer) > 60 Random Glucose 85 Calcium 9.6 Total Bilirubin 0.5 AST 21 ALT 35 Alkaline Phosphatase 86 Troponin I Total Protein 6.9 Albumin 3.9 Globulin 3.0 Albumin/Globulin Ratio 1.3 Triglycerides Cholesterol LDL Cholesterol Direct HDL Cholesterol Free T4 TSH 3rd Generation Urine Color Urine Appearance Urine pH Ur Specific [place] Urine Protein Urine Glucose (UA) Urine Ketones Urine Blood Urine Nitrate Urine Bilirubin Urine Urobilinogen Ur Leukocyte Esterase Salicylates Urine Opiates Screen Urine Methadone Screen Acetaminophen Ur Barbiturates Screen Valproic Acid 54 Ur Phencyclidine Scrn Ur Amphetamines Screen U Benzodiazepines Scrn U Oth Cocaine Metabols U Cannabinoids Screen Alcohol, Quantitative RPR Temp Pulse Resp BP Pulse Ox 97.7 F 73 20 120/86 20 L 05/06/17 07:16 05/06/17 07:16 05/06/17 07:16 05/06/17 07:16 04/29/17 07:16 Temp Pulse Resp BP Pulse Ox 97.7 F 76 20 130/90 20 L 05/07/17 07:07 05/07/17 07:07 05/07/17 07:07 05/07/17 07:07 04/29/17 07:16 Temp Pulse Resp BP Pulse Ox 97.9 F 100 H 20 147/96 H 20 L 05/08/17 07:16 05/08/17 16:01 05/08/17 07:16 05/08/17 16:01 04/29/17 07:16 Temp Pulse Resp BP Pulse Ox 97.8 F 84 20 134/80 20 L 05/10/17 06:53 05/10/17 16:00 05/10/17 06:53 05/10/17 16:00 04/29/17 07:16 Medication Change: No Medical Record Reviewed: Yes Consults ordered or reviewed: Medical Consult per Dr Matos, thank you Mental Status Examination - Cognitive Function Orientation: Person, Place, Situation, Time Attention: WNL - Mood Mood: Depressed, Anxious, Other (I have anger issues) - Affect Affect: Blunted, Flat, Depressed, Other (labile) - Speech Speech: Appropriate - Formal Thought Process Formal Thought Process: Paranoia (denies however patient appears paranoid) - Suicidal Ideation Suicidal Ideation: No - Homicidal Ideation Homicidal Ideation: No Goal/Treatment Plan - Goal/Treatment Plan Progress Toward Problem(s) and Goals/Treatment Plan: Treatment plan: Milieu/structure/supportive therapy Medical consult appreciated, see medical team note for more detailed info SW consultation for discharge plan and social issues Med management Family involvement Follow up on labs Will monitor closely SW evaluation for d/c planning Pt was educated about risk/benefits and alternatives of medications, coping strategies (safety plan, suicide prevention), relapse prevention, importance of follow up with psychiatrist and therapist, stay away from drugs/alcohol/smoking Medication Rational: Patient was on Seroquel 100mg AM and 200mg HS, this was increased to 300mg AM and HS due to patient's increased agitation and paranoia as well as mood stabilization Continue Gabapentin 400mg TID for anxiety and mood stabilization Continue Prozac 40 mg AM for depression
[2017-05-11] MEDS: DiphenhydrAMINE 50 mg/ml Inj IM PRN (18:49)
[2017-05-11 22:41] VITALS: O2SAT 95
[2017-05-12] MEDS: Pantoprazole 40 mg EC Tab PO SCH (06:52)
[2017-05-12] MEDS: Bacitracin Ointment 30 GM TUBE TOP SCH ×2 (10:00→21:40)
[2017-05-12] MEDS: Divalproex 500 mg DR(BID formulation) PO SCH ×2 (10:21→21:41)
--- NOTE | 2017-05-12 13:08 | PCM.PYCHPN ---
Psychiatric Progress Note - Psychiatric Progress Note Patient seen today, length of contact: 25 MIN Patient Chief Complaint: "I am never getting out of here". Problems Identified/Issues Discussed: Patient is a 32 year old single white male who presented to the ER after calling 911 himself because he felt like hurting himself. Patient Had been admitted to [facility] on 04/18/2017 for suicidal ideation. He was discharges on 04/24/2017 with medication and plan to attend [facility] IDT. He was readmitted for the same symptoms again to [facility] on 04/26/2017 and was apparently discharged 04/27/2017 (there is no discharge note) with the plan being patient to attend the IDT program starting today. When patient got home from the hospital, he was feeling suicidal because his father told him he had to live up stairs with his mother, who is an alcoholic. He wanted to continue living downstairs with his father and brothers but says his father would not let him "because of the pot". He says that he last smoked 04/12/2017 and his utox was negative so this does not make sense. He asked his father for his medication so he could take them all but his father refused. He then took a serrated steak knife into the bathroom and cut his left chest, contemplating cutting the left side of his neck as well. He called 911 himself and came to the [facility] ER, where he was evaluated and subsequently admitted. Patient is seen today in a common area of the unit. Hygiene and grooming are good. Patient's affect remains flat. Patient got frustrated last night and threw another nightstand and broke it. He also made a suicidal statement. "If I have to spend another Fing night in here I will kill myself". Patient on 1:1 for safety. Depakote level ordered and Gabapentin increased to help with anxiety. Patient encouraged to work on his coping and take responsibility for his behavior as he is still saying "I don't know what happened". Worried about going to [facility], encouraged to work on his behavior which could help prevent this. Insight and judgment poor. Medical Problems: Patient denies any ongoing medical issues Diagnostic Results: Temp Pulse Resp BP Pulse Ox 97.8 F 77 20 126/83 20 L 05/04/17 07:28 05/04/17 16:00 05/04/17 07:28 05/04/17 16:00 04/29/17 07:16 Temp Pulse Resp BP Pulse Ox 98.2 F 71 18 125/83 20 L 05/05/17 06:41 05/05/17 06:41 05/05/17 06:41 05/05/17 06:41 04/29/17 07:16 Laboratory Tests 04/28/17 04/28/17 04/28/17 03:03 03:03 03:03 WBC 14.8 H RBC 4.80 Hgb 14.9 Hct 44.0 MCV 91.7 MCH 31.0 MCHC 33.9 RDW 12.0 Plt Count 265 MPV 12.1 H Gran % 70.9 H Lymph % (Auto) 19.9 L [place] % (Auto) 7.4 H Eos % (Auto) 1.6 Baso % (Auto) 0.2 Gran # 10.46 H Lymph # (Auto) 2.9 [place] # (Auto) 1.1 H Eos # (Auto) 0.2 Baso # (Auto) 0.03 Sodium 142 Potassium 4.2 Chloride 101 Carbon Dioxide 31 Anion Gap 14 BUN 18 Creatinine 1.0 Est GFR ( Amer) > 60 Est GFR (Non-Af Amer) > 60 Random Glucose 103 Calcium 10.2 Total Bilirubin 0.2 AST 34 ALT 35 Alkaline Phosphatase 81 Troponin I < 0.01 Total Protein 7.4 Albumin 4.3 Globulin 3.1 Albumin/Globulin Ratio 1.4 Triglycerides Cholesterol LDL Cholesterol Direct HDL Cholesterol Free T4 TSH 3rd Generation Urine Color Urine Appearance Urine pH Ur Specific [place] Urine Protein Urine Glucose (UA) Urine Ketones Urine Blood Urine Nitrate Urine Bilirubin Urine Urobilinogen Ur Leukocyte Esterase Salicylates < 1 L Urine Opiates Screen Urine Methadone Screen Acetaminophen < 10.0 L Ur Barbiturates Screen Valproic Acid Ur Phencyclidine Scrn Ur Amphetamines Screen U Benzodiazepines Scrn U Oth Cocaine Metabols U Cannabinoids Screen Alcohol, Quantitative RPR 04/28/17 04/28/17 04/28/17 03:03 04:40 04:40 WBC RBC Hgb Hct MCV MCH MCHC RDW Plt Count MPV Gran % Lymph % (Auto) [place] % (Auto) Eos % (Auto) Baso % (Auto) Gran # Lymph # (Auto) [place] # (Auto) Eos # (Auto) Baso # (Auto) Sodium Potassium Chloride Carbon Dioxide Anion Gap BUN Creatinine Est GFR ( Amer) Est GFR (Non-Af Amer) Random Glucose Calcium Total Bilirubin AST ALT Alkaline Phosphatase Troponin I Total Protein Albumin Globulin Albumin/Globulin Ratio Triglycerides Cholesterol LDL Cholesterol Direct HDL Cholesterol Free T4 TSH 3rd Generation Urine Color Yellow Urine Appearance Clear Urine pH 6.0 Ur Specific [place] 1.025 Urine Protein Negative Urine Glucose (UA) Negative Urine Ketones Trace H Urine Blood Negative Urine Nitrate Negative Urine Bilirubin Negative Urine Urobilinogen 0.2 Ur Leukocyte Esterase Negative Salicylates Urine Opiates Screen Negative Urine Methadone Screen Negative Acetaminophen Ur Barbiturates Screen Negative Valproic Acid Ur Phencyclidine Scrn Negative Ur Amphetamines Screen Negative U Benzodiazepines Scrn Positive U Oth Cocaine Metabols Negative U Cannabinoids Screen Negative Alcohol, Quantitative < 10 RPR 04/29/17 04/29/17 04/29/17 07:20 07:20 07:20 WBC RBC Hgb Hct MCV MCH MCHC RDW Plt Count MPV Gran % Lymph % (Auto) [place] % (Auto) Eos % (Auto) Baso % (Auto) Gran # Lymph # (Auto) [place] # (Auto) Eos # (Auto) Baso # (Auto) Sodium Potassium Chloride Carbon Dioxide Anion Gap BUN Creatinine Est GFR ( Amer) Est GFR (Non-Af Amer) Random Glucose Calcium Total Bilirubin AST ALT Alkaline Phosphatase Troponin I Total Protein Albumin Globulin Albumin/Globulin Ratio Triglycerides 83 Cholesterol 167 LDL Cholesterol Direct 115 HDL Cholesterol 38 Free T4 0.73 L TSH 3rd Generation 2.01 Urine Color Urine Appearance Urine pH Ur Specific [place] Urine Protein Urine Glucose (UA) Urine Ketones Urine Blood Urine Nitrate Urine Bilirubin Urine Urobilinogen Ur Leukocyte Esterase Salicylates Urine Opiates Screen Urine Methadone Screen Acetaminophen Ur Barbiturates Screen Valproic Acid Ur Phencyclidine Scrn Ur Amphetamines Screen U Benzodiazepines Scrn U Oth Cocaine Metabols U Cannabinoids Screen Alcohol, Quantitative RPR Nonreactive 05/06/17 05/06/17 05/06/17 07:50 07:50 07:50 WBC 6.4 D RBC 4.73 Hgb 14.9 Hct 42.9 MCV 90.7 MCH 31.5 MCHC 34.7 RDW 12.1 Plt Count 245 MPV 11.3 H Gran % Lymph % (Auto) [place] % (Auto) Eos % (Auto) Baso % (Auto) Gran # Lymph # (Auto) [place] # (Auto) Eos # (Auto) Baso # (Auto) Sodium 141 Potassium 4.2 Chloride 103 Carbon Dioxide 27 Anion Gap 15 BUN 13 Creatinine 1.0 Est GFR ( Amer) > 60 Est GFR (Non-Af Amer) > 60 Random Glucose 85 Calcium 9.6 Total Bilirubin 0.5 AST 21 ALT 35 Alkaline Phosphatase 86 Troponin I Total Protein 6.9 Albumin 3.9 Globulin 3.0 Albumin/Globulin Ratio 1.3 Triglycerides Cholesterol LDL Cholesterol Direct HDL Cholesterol Free T4 TSH 3rd Generation Urine Color Urine Appearance Urine pH Ur Specific [place] Urine Protein Urine Glucose (UA) Urine Ketones Urine Blood Urine Nitrate Urine Bilirubin Urine Urobilinogen Ur Leukocyte Esterase Salicylates Urine Opiates Screen Urine Methadone Screen Acetaminophen Ur Barbiturates Screen Valproic Acid 54 Ur Phencyclidine Scrn Ur Amphetamines Screen U Benzodiazepines Scrn U Oth Cocaine Metabols U Cannabinoids Screen Alcohol, Quantitative RPR Temp Pulse Resp BP Pulse Ox 97.7 F 73 20 120/86 20 L 05/06/17 07:16 05/06/17 07:16 05/06/17 07:16 05/06/17 07:16 04/29/17 07:16 Temp Pulse Resp BP Pulse Ox 97.7 F 76 20 130/90 20 L 05/07/17 07:07 05/07/17 07:07 05/07/17 07:07 05/07/17 07:07 04/29/17 07:16 Temp Pulse Resp BP Pulse Ox 97.9 F 100 H 20 147/96 H 20 L 05/08/17 07:16 05/08/17 16:01 05/08/17 07:16 05/08/17 16:01 04/29/17 07:16 Temp Pulse Resp BP Pulse Ox 97.8 F 84 20 134/80 20 L 05/10/17 06:53 05/10/17 16:00 05/10/17 06:53 05/10/17 16:00 04/29/17 07:16 Medication Change: Yes (Increase Gabapentin) Medical Record Reviewed: Yes Consults ordered or reviewed: Medical Consult per Dr Matos, thank you Mental Status Examination - Cognitive Function Orientation: Person, Place, Situation, Time Attention: WNL - Mood Mood: Depressed, Anxious, Other (I have anger issues) - Affect Affect: Blunted, Flat, Depressed, Other (labile) - Speech Speech: Appropriate - Formal Thought Process Formal Thought Process: Paranoia (denies however patient appears paranoid) - Suicidal Ideation Suicidal Ideation: No - Homicidal Ideation Homicidal Ideation: No Goal/Treatment Plan - Goal/Treatment Plan Progress Toward Problem(s) and Goals/Treatment Plan: Treatment plan: Milieu/structure/supportive therapy Medical consult appreciated, see medical team note for more detailed info SW consultation for discharge plan and social issues Med management Family involvement Follow up on labs Will monitor closely evaluation for d/c planning Pt was educated about risk/benefits and alternatives of medications, coping strategies (safety plan, suicide prevention), relapse prevention, importance of follow up with psychiatrist and therapist, stay away from drugs/alcohol/smoking Medication Rational: Patient was on Seroquel 100mg AM and 200mg HS, this was increased to 300mg AM and HS due to patient's increased agitation and paranoia as well as mood stabilization Continue Gabapentin 400mg TID for anxiety and mood stabilization Continue Prozac 40 mg AM for depression
[2017-05-13] MEDS: Pantoprazole 40 mg EC Tab PO SCH (07:09)
[2017-05-13 07:24] VITALS: BP 129/92; PULSE 78; RESP 20; TEMP 97.7
[2017-05-13] MEDS: Magnesium Hydroxide Susp 30 ml UD PO PRN (07:43)
[2017-05-13] MEDS: Divalproex 500 mg DR(BID formulation) PO SCH (09:08)
[2017-05-13] MEDS: Bacitracin Ointment 30 GM TUBE TOP SCH (10:00)
--- NOTE | 2017-05-13 10:00 | PCM.BM ---
<Aj Linares - Last Filed: 05/13/17 09:56> Treatment Plan Problems - Problems identified on initial assessmt anxiety Date Initiated: 04/28/17 (met on 05/06/17 easily gets anxious and gets agitated with poor impulse control) Time Initiated: 17:00 Assessment reference: NA Status: Active Priority: 1 delusions Date Initiated: 04/28/17 ( 05/06 remain delusional,signed 48 hour notice) Time Initiated: 17:00 Assessment reference: NA Status: Active Priority: 2 ineffective coping skills Date Initiated: 04/28/17 (remain with poor coping skills) Time Initiated: 17:00 Assessment reference: NA Status: Active Priority: 3 social isolation Date Initiated: 05/13/17 Time Initiated: 10:00 Assessment reference: NA Status: Active Treatment assets and liabiliti Patient Assests: cooperative, ADL independent, negotiates basic needs Patient Liabilities: financial problems - Milieu Protocol Maintain good personal hygiene: daily Encourage regular showers, daily Remind patient to perform daily oral care, daily Assist patient to perform ADL's Maintain personal safety: every shift Educate patient to report safety concerns to staff, every shift Monitor environment for contraband/sharps Medication safety: Monitor for expected outcome, potential side effects: every shift, Assess barriers to learning: every shift, Assess readiness for medication education: every shift Milieu Narrative: Treatment plan: Milieu/structure/supportive therapy Medical consult appreciated, see medical team note for more detailed info SW consultation for discharge plan and social issues Med management Family involvement Follow up on labs Will monitor closely SW evaluation for d/c planning Pt was educated about risk/benefits and alternatives of medications, coping strategies (safety plan, suicide prevention), relapse prevention, importance of follow up with psychiatrist and therapist, stay away from drugs/alcohol/smoking Medication Rational: Patient was on Seroquel 100mg AM and 200mg HS, this was increased to 300mg AM and HS due to patient's increased agitation and paranoia as well as mood stabilization Continue Gabapentin 400mg TID for anxiety and mood stabilization Continue Prozac 40 mg AM for depression Family Contact Family involvement: Family/SO is involved Family contact: Patient agrees to contact Family contact name: Nic Branch(father) [phone] Family contacted how many times per week?: 2 Discharge/Continuing Care - Education Needs Education Needs: Patient Medication, Patient Diagnosis/Disease Process, Patient Coping Skills, Patient Community resources, Patient Activities of Daily Living, Patient Nutrition, Patient Health Practices/Safety, Patient Personal Hygiene/ Grooming, Patient Aftercare Safety Plan - Discharge Discharge Criteria: Tolerates medication w/o severe side effects, Free of Suicidal thoughts, Free of paranoid thoughts, Free of agitation, Normal sleep pattern, Ability to care for self, No longer exhibiting s/s of withdrawal, Reduction of target symptoms Discharge to:: Home - Treatment Team Participation Patient/Family/SO Statement: Treatment plan: Milieu/structure/supportive therapy Medical consult appreciated, see medical team note for more detailed info consultation for discharge plan and social issues Med management Family involvement Follow up on labs Will monitor closely SW evaluation for d/c planning Pt was educated about risk/benefits and alternatives of medications, coping strategies (safety plan, suicide prevention), relapse prevention, importance of follow up with psychiatrist and therapist, stay away from drugs/alcohol/smoking Medication Rational: Patient was on Seroquel 100mg AM and 200mg HS, this was increased to 300mg AM and HS due to patient's increased agitation and paranoia as well as mood stabilization Continue Gabapentin 400mg TID for anxiety and mood stabilization Continue Prozac 40 mg AM for depression Treatment Plan Review - Problem anxiety Time Initiated: 17:00 delusions Time Initiated: 17:00 ineffective coping skills Time Initiated: 17:00 <Rahel Ramey - Last Filed: 05/13/17 13:12> - Diagnosis (1) Bipolar 1 disorder, depressed, severe Status: Acute Interventions: Psychoeducation Psychopharmacology/adjustment of medications as needed/ monitoring possible side effects Evaluate pt on daily basis Compliance with medications and follow up appointments Suicide and homicide risk assessment and prevention, coping strategies, safety plan Reduction of symptoms Relaxation techniques and breathing exercises Improve functional status Family involvement As outpatient: cognitive behavioral therapy 05/13/17 13:12 <Blank Barnes - Last Filed: 05/13/17 13:45>
[2017-05-13] MEDS ORDERED: Divalproex 500 mg DR(BID formulation) PO SCH (13:14)
--- NOTE | 2017-05-13 13:18 | PCM.PYCHPN ---
Psychiatric Progress Note - Psychiatric Progress Note Patient seen today, length of contact: 25 MIN Patient Chief Complaint: "I feel better with more gabapentin" Problems Identified/Issues Discussed: Patient is a 32 year old single white male who presented to the ER after calling 911 himself because he felt like hurting himself. Patient Had been admitted to [facility] on 04/18/2017 for suicidal ideation. He was discharges on 04/24/2017 with medication and plan to attend [facility]T. He was readmitted for the same symptoms again to [facility] on 04/26/2017 and was apparently discharged 04/27/2017 (there is no discharge note) with the plan being patient to attend the IDT program starting today. When patient got home from the hospital, he was feeling suicidal because his father told him he had to live up stairs with his mother, who is an alcoholic. He wanted to continue living downstairs with his father and brothers but says his father would not let him "because of the pot". He says that he last smoked 04/12/2017 and his utox was negative so this does not make sense. He asked his father for his medication so he could take them all but his father refused. He then took a serrated steak knife into the bathroom and cut his left chest, contemplating cutting the left side of his neck as well. He called 911 himself and came to [place] [facility], where he was evaluated and subsequently admitted. Patient is seen today in treatment team. Hygiene and grooming are good. Patient' s affect remains flat. Patient is concrete, unable to process the discussion of the consequences of losing control on his ultimate disposition "I just need to get out and get a job, that's it". Insight is poor. Continues to be cooperative in taking medication, seeks several staff members out for 1:1's daily, seems to benefit and enjoy contact. He also goes to groups and contributes appropriately. Patient denies he was suicidal when he destroyed the table, says he was frustrated. Denies being suicidal or homicidal and continues to deny the presence of hallucinations, delusions, or paranoia. 1:1 discontinued, patient agrees to utilize staff as support should he feel overwhelmed again. He continues on involuntary status awaiting a bed at [facility]. Depakote level 55, depakote increased to help with impulse control. Medical Problems: Patient denies any ongoing medical issues Diagnostic Results: Temp Pulse Resp BP Pulse Ox 97.8 F 77 20 126/83 20 L 05/04/17 07:28 05/04/17 16:00 05/04/17 07:28 05/04/17 16:00 04/29/17 07:16 Temp Pulse Resp BP Pulse Ox 98.2 F 71 18 125/83 20 L 05/05/17 06:41 05/05/17 06:41 05/05/17 06:41 05/05/17 06:41 04/29/17 07:16 Laboratory Tests 04/28/17 04/28/17 04/28/17 03:03 03:03 03:03 WBC 14.8 H RBC 4.80 Hgb 14.9 Hct 44.0 MCV 91.7 MCH 31.0 MCHC 33.9 RDW 12.0 Plt Count 265 MPV 12.1 H Gran % 70.9 H Lymph % (Auto) 19.9 L [place] % (Auto) 7.4 H Eos % (Auto) 1.6 Baso % (Auto) 0.2 Gran # 10.46 H Lymph # (Auto) 2.9 [place] # (Auto) 1.1 H Eos # (Auto) 0.2 Baso # (Auto) 0.03 Sodium 142 Potassium 4.2 Chloride 101 Carbon Dioxide 31 Anion Gap 14 BUN 18 Creatinine 1.0 Est GFR ( Amer) > 60 Est GFR (Non-Af Amer) > 60 Random Glucose 103 Calcium 10.2 Total Bilirubin 0.2 AST 34 ALT 35 Alkaline Phosphatase 81 Troponin I < 0.01 Total Protein 7.4 Albumin 4.3 Globulin 3.1 Albumin/Globulin Ratio 1.4 Triglycerides Cholesterol LDL Cholesterol Direct HDL Cholesterol Free T4 TSH 3rd Generation Urine Color Urine Appearance Urine pH Ur Specific [place] Urine Protein Urine Glucose (UA) Urine Ketones Urine Blood Urine Nitrate Urine Bilirubin Urine Urobilinogen Ur Leukocyte Esterase Salicylates < 1 L Urine Opiates Screen Urine Methadone Screen Acetaminophen < 10.0 L Ur Barbiturates Screen Valproic Acid Ur Phencyclidine Scrn Ur Amphetamines Screen U Benzodiazepines Scrn U Oth Cocaine Metabols U Cannabinoids Screen Alcohol, Quantitative RPR 04/28/17 04/28/17 04/28/17 03:03 04:40 04:40 WBC RBC Hgb Hct MCV MCH MCHC RDW Plt Count MPV Gran % Lymph % (Auto) [place] % (Auto) Eos % (Auto) Baso % (Auto) Gran # Lymph # (Auto) [place] # (Auto) Eos # (Auto) Baso # (Auto) Sodium Potassium Chloride Carbon Dioxide Anion Gap BUN Creatinine Est GFR ( Amer) Est GFR (Non-Af Amer) Random Glucose Calcium Total Bilirubin AST ALT Alkaline Phosphatase Troponin I Total Protein Albumin Globulin Albumin/Globulin Ratio Triglycerides Cholesterol LDL Cholesterol Direct HDL Cholesterol Free T4 TSH 3rd Generation Urine Color Yellow Urine Appearance Clear Urine pH 6.0 Ur Specific [place] 1.025 Urine Protein Negative Urine Glucose (UA) Negative Urine Ketones Trace H Urine Blood Negative Urine Nitrate Negative Urine Bilirubin Negative Urine Urobilinogen 0.2 Ur Leukocyte Esterase Negative Salicylates Urine Opiates Screen Negative Urine Methadone Screen Negative Acetaminophen Ur Barbiturates Screen Negative Valproic Acid Ur Phencyclidine Scrn Negative Ur Amphetamines Screen Negative U Benzodiazepines Scrn Positive U Oth Cocaine Metabols Negative U Cannabinoids Screen Negative Alcohol, Quantitative < 10 RPR 04/29/17 04/29/17 04/29/17 07:20 07:20 07:20 WBC RBC Hgb Hct MCV MCH MCHC RDW Plt Count MPV Gran % Lymph % (Auto) [place] % (Auto) Eos % (Auto) Baso % (Auto) Gran # Lymph # (Auto) [place] # (Auto) Eos # (Auto) Baso # (Auto) Sodium Potassium Chloride Carbon Dioxide Anion Gap BUN Creatinine Est GFR ( Amer) Est GFR (Non-Af Amer) Random Glucose Calcium Total Bilirubin AST ALT Alkaline Phosphatase Troponin I Total Protein Albumin Globulin Albumin/Globulin Ratio Triglycerides 83 Cholesterol 167 LDL Cholesterol Direct 115 HDL Cholesterol 38 Free T4 0.73 L TSH 3rd Generation 2.01 Urine Color Urine Appearance Urine pH Ur Specific [place] Urine Protein Urine Glucose (UA) Urine Ketones Urine Blood Urine Nitrate Urine Bilirubin Urine Urobilinogen Ur Leukocyte Esterase Salicylates Urine Opiates Screen Urine Methadone Screen Acetaminophen Ur Barbiturates Screen Valproic Acid Ur Phencyclidine Scrn Ur Amphetamines Screen U Benzodiazepines Scrn U Oth Cocaine Metabols U Cannabinoids Screen Alcohol, Quantitative RPR Nonreactive 05/06/17 05/06/17 05/06/17 07:50 07:50 07:50 WBC 6.4 D RBC 4.73 Hgb 14.9 Hct 42.9 MCV 90.7 MCH 31.5 MCHC 34.7 RDW 12.1 Plt Count 245 MPV 11.3 H Gran % Lymph % (Auto) [place] % (Auto) Eos % (Auto) Baso % (Auto) Gran # Lymph # (Auto) [place] # (Auto) Eos # (Auto) Baso # (Auto) Sodium 141 Potassium 4.2 Chloride 103 Carbon Dioxide 27 Anion Gap 15 BUN 13 Creatinine 1.0 Est GFR ( Amer) > 60 Est GFR (Non-Af Amer) > 60 Random Glucose 85 Calcium 9.6 Total Bilirubin 0.5 AST 21 ALT 35 Alkaline Phosphatase 86 Troponin I Total Protein 6.9 Albumin 3.9 Globulin 3.0 Albumin/Globulin Ratio 1.3 Triglycerides Cholesterol LDL Cholesterol Direct HDL Cholesterol Free T4 TSH 3rd Generation Urine Color Urine Appearance Urine pH Ur Specific [place] Urine Protein Urine Glucose (UA) Urine Ketones Urine Blood Urine Nitrate Urine Bilirubin Urine Urobilinogen Ur Leukocyte Esterase Salicylates Urine Opiates Screen Urine Methadone Screen Acetaminophen Ur Barbiturates Screen Valproic Acid 54 Ur Phencyclidine Scrn Ur Amphetamines Screen U Benzodiazepines Scrn U Oth Cocaine Metabols U Cannabinoids Screen Alcohol, Quantitative RPR Temp Pulse Resp BP Pulse Ox 97.7 F 73 20 120/86 20 L 05/06/17 07:16 05/06/17 07:16 05/06/17 07:16 05/06/17 07:16 04/29/17 07:16 Temp Pulse Resp BP Pulse Ox 97.7 F 76 20 130/90 20 L 05/07/17 07:07 05/07/17 07:07 05/07/17 07:07 05/07/17 07:07 04/29/17 07:16 Temp Pulse Resp BP Pulse Ox 97.9 F 100 H 20 147/96 H 20 L 05/08/17 07:16 05/08/17 16:01 05/08/17 07:16 05/08/17 16:01 04/29/17 07:16 Temp Pulse Resp BP Pulse Ox 97.8 F 84 20 134/80 20 L 05/10/17 06:53 05/10/17 16:00 05/10/17 06:53 05/10/17 16:00 04/29/17 07:16 Temp Pulse Resp BP Pulse Ox 97.7 F 78 20 129/92 H 95 05/13/17 07:23 05/13/17 07:23 05/13/17 07:23 05/13/17 07:23 05/11/17 15:00 Medication Change: Yes (Increase Depakote) Medical Record Reviewed: Yes Consults ordered or reviewed: Medical Consult per Dr Matos, thank you Mental Status Examination - Cognitive Function Orientation: Person, Place, Situation, Time Attention: WNL - Mood Mood: Depressed, Anxious, Other (I have anger issues) - Affect Affect: Blunted, Flat, Depressed, Other (labile) - Speech Speech: Appropriate - Formal Thought Process Formal Thought Process: Paranoia (denies however patient appears paranoid) - Suicidal Ideation Suicidal Ideation: No - Homicidal Ideation Homicidal Ideation: No Goal/Treatment Plan - Goal/Treatment Plan Progress Toward Problem(s) and Goals/Treatment Plan: Treatment plan: Milieu/structure/supportive therapy Medical consult appreciated, see medical team note for more detailed info SW consultation for discharge plan and social issues Med management Family involvement Follow up on labs Will monitor closely evaluation for d/c planning Pt was educated about risk/benefits and alternatives of medications, coping strategies (safety plan, suicide prevention), relapse prevention, importance of follow up with psychiatrist and therapist, stay away from drugs/alcohol/smoking Medication Rational: Patient was on Seroquel 100mg AM and 200mg HS, this was increased to 300mg AM and HS due to patient's increased agitation and paranoia as well as mood stabilization Continue Gabapentin 400mg TID for anxiety and mood stabilization Continue Prozac 40 mg AM for depression
[2017-05-13] MEDS ORDERED: Divalproex 250 mg DR (BID formulation) PO SCH ×2 (13:30→16:00)
== END 2017-05-13 16:05 | DRG 430 ==
LOC: ED 02:24 → ERH 09:05 → PSYC 12:22
PROVIDERS: ADMIT Psychiatry & Neurology Psychiatry; ATTEND Psychiatry & Neurology Psychiatry
PROC: GZ3ZZZZ Medication Management (ICD-10-PCS; principal; 2017-04-28)
DX: F31.4 Bipolar disorder, current episode depressed, severe, without psychotic features (principal); R45.851 Suicidal ideations; F12.90 Cannabis use, unspecified, uncomplicated; F60.3 Borderline personality disorder; F81.9 Developmental disorder of scholastic skills, unspecified; F41.9 Anxiety disorder, unspecified; F17.210 Nicotine dependence, cigarettes, uncomplicated; M25.551 Pain in right hip

== ENCOUNTER 2017-05-21 20:45 | Inpatient (IN) | payer MEDICAID ==
[2017-05-21 20:45] VITALS: BMI 37.6
--- NOTE | 2017-05-21 21:24 | ED PDOC ---
Arrival/HPI - General Chief Complaint: Psychiatric Evaluation Time Seen by Provider: 05/21/17 21:00 Historian: Patient - History of Present Illness Narrative History of Present Illness (Text): 05/21/17 21:20 A 32 year old male, whose past medical history includes disability due to psychiatric reasons, presents to the emergency department expressing suicidal ideation. The patient lives with his father and was discharged from the hospital about 1 month ago with prescriptions for medications which he did not get refilled and has not followed up with his psychiatrist. The patient states that he "feels really bad today" and was planning on using a knife to cut and kill himself. When he expressed this, his father called EMS. The patient denies fevers, chills, headache, dizziness, chest pain, shortness of breath, dyspnea on exertion, cough, abdominal pain, nausea, vomiting, diarrhea, back pain, neck pain, urinary/bowel changes, or any other somatic complaint. PMD: Dr. Aj Gordon Time/Duration: Other (Today) Symptom Onset: Sudden Symptom Course: Unchanged Activities at Onset: Rest, Light Context: Home Past Medical History - Provider Review Nursing Documentation Reviewed: Yes - Infectious Disease Hx of Infectious Diseases: None - Tetanus Immunization Tetanus Immunization: Up to Date - Cardiac Hx Cardiac Disorders: No Hx Hypertension: No - Pulmonary Hx Respiratory Disorders: No - Neurological Hx Neurological Disorder: No - HEENT Hx HEENT Disorder: No - Renal Hx Renal Disorder: No - Endocrine/Metabolic Hx Endocrine Disorders: No - Hematological/Oncological Hx Blood Disorders: No - Integumentary Hx Dermatological Disorder: No - Musculoskeletal/Rheumatological Hx Musculoskeletal Disorders: No - Gastrointestinal Hx Gastrointestinal Disorders: No - Genitourinary/Gynecological Hx Genitourinary Disorders: No Hx Sexually Transmitted Diseases: No - Psychiatric Hx Psychophysiologic Disorder: Yes Hx Anxiety: Yes Hx Depression: Yes Hx Substance Use: Yes (CANNABIS) - Anesthesia Hx Anesthesia: No Hx Anesthesia Reactions: No Family/Social History - Physician Review Nursing Documentation Reviewed: Yes Family/Social History: No Known Family HX Smoking Status: Heavy Smoker > 10 Cigarettes Daily Hx Alcohol Use: No Hx Substance Use: Yes (CANNABIS) Allergies/Home Meds Allergies/Adverse Reactions: Allergies No Known Allergies Allergy (Verified 05/21/17 20:59) Home Medications: Home Meds Medication Instructions Recorded Confirmed QUEtiapine [Seroquel] 200 mg PO BID 05/21/17 05/21/17 Review of Systems - Physician Review All systems were reviewed & negative as marked: Yes - Review of Systems Constitutional: absent: Fevers, Night Sweats Respiratory: absent: SOB, Cough Cardiovascular: absent: Chest Pain, FERRARI Gastrointestinal: absent: Abdominal Pain, Diarrhea, Nausea, Vomiting Genitourinary Male: absent: Urinary Output Changes Musculoskeletal: absent: Back Pain, Neck Pain Neurological: absent: Headache, Dizziness Psychiatric: Suicidal Ideation Physical Exam Vital Signs Reviewed: Yes Vital Signs Temp Pulse Resp BP Pulse Ox 05/22/17 13:53 98.2 F 94 H 18 141/87 96 05/22/17 09:38 98.1 F 109 H 18 146/90 100 05/22/17 07:20 98.8 F 113 H 18 144/90 95 05/22/17 06:15 89 18 139/85 97 05/22/17 03:30 85 18 134/89 98 05/22/17 01:30 98.0 F 82 18 145/103 H 99 05/21/17 23:30 97.5 F L 81 19 133/93 H 100 05/21/17 21:00 97.2 F L 104 H 16 138/102 H 95 Temperature: Hypothermic Blood Pressure: Hypertensive Pulse: Tachycardic Respiratory Rate: Normal Appearance: Positive for: Non-Toxic, Comfortable, Unkept (Patient has poor hygiene. ) Pain Distress: None Mental Status: Positive for: Alert and Oriented X 3 - Systems Exam Head: Present: Atraumatic, Normocephalic Pupils: Present: PERRL Extroacular Muscles: Present: EOMI Conjunctiva: Present: Normal Mouth: Present: Moist Mucous Membranes Neck: Present: Normal Range of Motion Respiratory/Chest: Present: Clear to Auscultation, Good Air Exchange. No: Respiratory Distress, Accessory Muscle Use Cardiovascular: Present: Regular Rate and Rhythm, Normal S1, S2. No: Murmurs Abdomen: Present: Normal Bowel Sounds. No: Tenderness, Distention, Peritoneal Signs Back: Present: Normal Inspection Upper Extremity: Present: Normal Inspection. No: Cyanosis, Edema Lower Extremity: Present: Normal Inspection. No: Edema Neurological: Present: GCS=15, CN II-XII Intact, Speech Normal Skin: Present: Warm, Dry, Normal Color. No: Rashes Psychiatric: Present: Alert, Oriented x 3, Normal Insight, Normal Concentration , Other (Patient has very poor eye contact and looks mostly at the floor. Speaks softly.). No: Intoxicated (Patient denies drug/ETOH use.) Medical Decision Making ED Course and Treatment: 05/21/17 21:26 Impression: A 32 year old male presents to the emergency department expressing suicidal ideation this evening prompting his father to call EMS. Plan: -- Head CT -- Chest X-ray -- Labs -- Blood/ Urine Culture -- Urinalysis -- Reassess and disposition Prior Visits: Notes and results from previous visits were reviewed. Patient was last seen in the emergency department on 04/28/17. The patient was seen in the emergency department expressing suicidal ideation. Progress Notes: EKG: Ordered, reviewed, and independently interpreted the EKG. Rate : 85 BPM Rhythm : NSR - Lab Interpretations Lab Results: 05/21/17 22:41 05/21/17 22:41 Lab Results 05/22/17 00:20: Urine Opiates Screen Negative, Urine Methadone Screen Negative, Ur Barbiturates Screen Negative, Ur Phencyclidine Scrn Negative, Ur Amphetamines Screen Negative, U Benzodiazepines Scrn Negative, U Oth Cocaine Metabols Negative, U Cannabinoids Screen Positive H 05/22/17 00:20: Urine Color Yellow, Urine Appearance Clear, Urine pH 6.0, Ur Specific [place] >= 1.030, Urine Protein Trace H, Urine Glucose (UA) Negative, Urine Ketones Trace H, Urine Blood Negative, Urine Nitrate Negative, Urine Bilirubin Negative, Urine Urobilinogen 0.2, Ur Leukocyte Esterase Negative, Urine RBC 0 - 2, Urine WBC 1 - 3, Ur Epithelial Cells 0 - 2, Urine Bacteria Few 05/21/17 22:41: Alcohol, Quantitative < 10 05/21/17 22:41: Salicylates < 1 L, Acetaminophen < 10.0 L 05/21/17 22:41: Sodium 141, Potassium 4.0, Chloride 106, Carbon Dioxide 25, Anion Gap 14, BUN 17, Creatinine 0.8, Est GFR ( Amer) > 60, Est GFR (Non- Af Amer) > 60, Random Glucose 98, Calcium 10.2, Total Bilirubin 0.3, AST 32, ALT 44, Alkaline Phosphatase 101, Lactate Dehydrogenase 416, Total Creatine Kinase 63, Troponin I < 0.01, Total Protein 7.7, Albumin 4.4, Globulin 3.3, Albumin/Globulin Ratio 1.3, Lipase 70 05/21/17 22:41: PT 11.9, INR 1.04 05/21/17 22:41: WBC 11.5 H D, RBC 5.05, Hgb 16.0, Hct 45.6, MCV 90.3, MCH 31.7, MCHC 35.1, RDW 12.7, Plt Count 280, MPV 11.4 H, Gran % 63.8, Lymph % (Auto) 25.7 , [place] % (Auto) 8.9 H, Eos % (Auto) 1.4 L, Baso % (Auto) 0.2, Gran # 7.32 H, Lymph # (Auto) 3.0, [place] # (Auto) 1.0 H, Eos # (Auto) 0.2, Baso # (Auto) 0.02 I have reviewed the lab results: Yes - RAD Interpretation Radiology Orders: 05/21/17 21:19 CHEST PORTABLE [RAD] Stat - Medication Orders Current Medication Orders: Acetaminophen (Tylenol 325mg Tab) 650 mg PO Q6H PRN PRN Reason: Pain, moderate (4-7) Al Hydrox/Mg Hydrox/Simethicone (Maalox Plus 30 Ml) 30 ml PO DAILY PRN PRN Reason: Indigestion / Heartburn Clonazepam (Klonopin) 1 mg PO TID JUDAH PRN Reason: Protocol Last Admin: 05/25/17 17:30 Dose: 1 mg Behavioural Document 05/25/17 17:30 TW (Rec: 05/25/17 17:30 TW [id number]) Maintenance Maintenance Dose Yes Re-Assess: Reassess Psych Meds Document 05/25/17 18:30 RGO (Rec: 05/25/17 20:26 RGO [id number]) Reassess Psych Med Effective Diphenhydramine HCl (Benadryl) 50 mg PO Q6 PRN PRN Reason: Anxiety Last Admin: 05/25/17 17:29 Dose: 50 mg Diphenhydramine HCl (Benadryl) 50 mg IM Q6H PRN PRN Reason: Allergy symptoms Last Admin: 05/24/17 18:28 Dose: 50 mg IM Administration Charges Document 05/24/17 18:28 RFE (Rec: 05/24/17 18:28 RFE [id number]) Injection Site MAR Injection Site Left Deltoid Charges for Administration # of IM Administrations 1 Divalproex Sodium (Depakote Dr(*Bid*)) 500 mg PO BID JUDAH PRN Reason: Protocol Last Admin: 05/25/17 15:52 Dose: 500 mg Behavioural Document 05/25/17 15:52 TW (Rec: 05/25/17 15:52 [id number] Maintenance Maintenance Dose Yes Re-Assess: Reassess Psych Meds Document 05/25/17 16:52 RGO (Rec: 05/25/17 20:23 RGO [id number]) Reassess Psych Med Effective Gabapentin (Neurontin) 600 mg PO TID JUDAH PRN Reason: Protocol Last Admin: 05/25/17 17:30 Dose: 600 mg Behavioural Document 05/25/17 17:30 TW (Rec: 05/25/17 17:30 TW [id number]) Maintenance Maintenance Dose Yes Re-Assess: Reassess Psych Meds Document 05/25/17 18:30 RGO (Rec: 05/25/17 20:24 RGO [id number]) Reassess Psych Med Effective Haloperidol (Haldol) 5 mg PO Q6 PRN; Protocol PRN Reason: Agitation Last Admin: 05/25/17 17:29 Dose: 5 mg Behavioural Document 05/25/17 17:29 TW (Rec: 05/25/17 17:30 TW [id number]) Maintenance Maintenance Dose No Nonmedicinal Nonmedicinal Interventions Redirect Therapeutic Communication Behavior Behavior for Medication: Anxiety Continuous pacing/restlessness Dangers to self/others Re-Assess: Reassess Psych Meds Document 05/25/17 18:29 RGO (Rec: 05/25/17 20:26 RGO [id number]) Reassess Psych Med Effective Haloperidol Lactate (Haldol) 5 mg IM Q6 PRN; Protocol PRN Reason: Agitation Last Admin: 05/24/17 18:28 Dose: 5 mg IM Administration Charges Document 05/24/17 18:28 RFE (Rec: 05/24/17 18:28 RFE [id number]) Injection Site MAR Injection Site Left Deltoid Charges for Administration # of IM Administrations 1 Behavioural Document 05/24/17 18:28 RFE (Rec: 05/24/17 18:28 RFE [id number]) Maintenance Maintenance Dose No Nonmedicinal Nonmedicinal Interventions Redirect Therapeutic Communication Behavior Behavior for Medication: Continuous pacing/restlessness Dangers to self/others Re-Assess: Reassess Psych Meds Document 05/24/17 19:28 RFE (Rec: 05/24/17 19:55 RFE [id number]) Reassess Psych Med Effective Lorazepam (Ativan) 2 mg PO Q6 PRN; Protocol PRN Reason: Anxiety Last Admin: 05/25/17 17:30 Dose: 2 mg Behavioural Document 05/25/17 17:30 TW (Rec: 05/25/17 17:30 TW [id number]) Maintenance Maintenance Dose No Nonmedicinal Nonmedicinal Interventions Redirect Therapeutic Communication Behavior Behavior for Medication: Anxiety Continuous pacing/restlessness Dangers to self/others Re-Assess: Reassess Psych Meds Document 05/25/17 18:30 RGO (Rec: 05/25/17 20:23 RGO [id number]) Reassess Psych Med Effective Lorazepam (Ativan) 2 mg IM Q6H PRN; Protocol PRN Reason: SEVERE Anxiety Last Admin: 05/24/17 18:27 Dose: 2 mg IM Administration Charges Document 05/24/17 18:27 RFE (Rec: 05/24/17 18:28 RFE [id number]) Injection Site MAR Injection Site Right Deltoid Charges for Administration # of IM Administrations 1 Behavioural Document 05/24/17 18:27 RFE (Rec: 05/24/17 18:28 RFE [id number]) Maintenance Maintenance Dose No Nonmedicinal Nonmedicinal Interventions Redirect Therapeutic Communication Behavior Behavior for Medication: Anxiety Continuous pacing/restlessness Dangers to self/others Re-Assess: Reassess Psych Meds Document 05/24/17 18:57 RFE (Rec: 05/24/17 19:16 RFE [id number]) Reassess Psych Med Effective Magnesium Hydroxide (Milk Of Magnesia) 30 ml PO DAILY PRN PRN Reason: Constipation Nicotine (Nicoderm Cq) 1 patch TD DAILY [facility] Last Admin: 05/25/17 09:18 Dose: 1 patch MAR Transdermal Patch Site Document 05/25/17 09:18 RGO (Rec: 05/25/17 09:18 RGO [id number]) Transdermal Patch Site Transdermal Patch Site Left Outer Upper Arm Quetiapine Fumarate (Seroquel) 200 mg PO TID JUDAH PRN Reason: Protocol Last Admin: 05/25/17 17:30 Dose: 200 mg Re-Assess: Reassess Psych Meds Document 05/25/17 18:30 RGO (Rec: 05/25/17 20:24 RGO [id number]) Reassess Psych Med Effective Discontinued Medications Lorazepam (Ativan) 2 mg PO ONCE ONE PRN Reason: Protocol Stop: 05/22/17 00:05 Last Admin: 05/22/17 00:25 Dose: 2 mg Re-Assess: Reassess Psych Meds Document 05/22/17 01:25 ABO (Rec: 05/22/17 20:24 ABO [id number]) Reassess Psych Med Effective - PA / PAIL TESTER / Resident Statement MD/DO has reviewed & agrees with the documentation as recorded. - Scribe Statement The provider has reviewed the documentation as recorded by the Scribe Aura Hamilton Provider Scribe Attestation: All medical record entries made by the Scribe were at my direction and personally dictated by me. I have reviewed the chart and agree that the record accurately reflects my personal performance of the history, physical exam, medical decision making, and the department course for this patient. I have also personally directed, reviewed, and agree with the discharge instructions and disposition. Disposition/Present on Arrival - Present on Arrival Any Indicators Present on Arrival: No History of DVT/PE: No History of Uncontrolled Diabetes: No Urinary Catheter: No History of Decub. Ulcer: No History Surgical Site Infection Following: None - Disposition Have Diagnosis and Disposition been Completed?: Yes Diagnosis: Bipolar 1 disorder, Depression Disposition: HOSPITALIZED Disposition Time: 07:00 Patient Plan: Admission Patient Problems: Current Active Problems Problem Status Onset Bipolar 1 disorder Acute Depression Acute Condition: STABLE
[2017-05-21 22:52] LABS: BASO # 0.02 K/mm3 (0.0-2.0); BASO % 0.2 % (0.0-3.0); EOS # 0.2 (0.0-0.7); EOS % 1.4 % (1.5-5.0); GRAN # 7.32 (1.4-6.5); GRAN % 63.8 % (50.0-68.0); LYMPH % 25.7 % (22.0-35.0); MEAN CELL VOLUME 90.3 fl (80.0-105.0); MEAN CORPUSCULAR HEMOGLOBIN 31.7 pg (25.0-35.0); MEAN CORPUSCULAR HGB CONC 35.1 g/dl (31.0-37.0); MEAN PLATELET VOLUME 11.4 fl (7.0-11.0); MONO % 8.9 % (1.0-6.0); RBC 5.05 10^6/uL (3.5-6.1); RED CELL DISTRIBUTION WIDTH 12.7 % (11.5-14.5); WHITE BLOOD COUNT 11.5 10^3/ul (4.5-11.0)
[2017-05-21 22:59] LABS: INR 1.04 (0.93-1.08); PROTHROMBIN TIME 11.9 SECONDS (9.4-12.5)
[2017-05-21 23:01] LABS: ALB/GLOB RATIO 1.3 (1.1-1.8); ALBUMIN 4.4 g/dL (3.0-4.8); ALT/SGPT 44 U/L (7-56); AST/SGOT 32 U/L (17-59); BLOOD UREA NITROGEN 17 mg/dL (7-21); CALCIUM 10.2 mg/dL (8.4-10.5); GFR AFRICAN-AMERICAN > 60; GFR NON-AFRICAN AMERICAN > 60; LIPASE 70 U/L (23-300)
[2017-05-21 23:02] LABS: ACETAMINOPHEN < 10.0 ug/ml (10.0-20.0); SALICYLATE < 1 mg/dL (2.0-20.0)
[2017-05-21 23:10] LABS: TROPONIN I < 0.01 ng/mL
[2017-05-22 00:38] LABS: URINE BILIRUBIN NEGATIVE (NEGATIVE); URINE BLOOD NEGATIVE (NEGATIVE); URINE GLUCOSE (UA) NEGATIVE (NEGATIVE); URINE LEUKOCYTE ESTERASE NEGATIVE Leu/uL (NEGATIVE); URINE PROTEIN TRACE mg/dL (<30 mg/dL); URINE UROBILINOGEN 0.2 E.U./dL (<1 E.U./dL)
[2017-05-22 00:39] LABS: URINE APPEARANCE CLEAR (CLEAR); URINE COLOR YELLOW (YELLOW)
[2017-05-22 00:51] LABS: URINE RBC 0 - 2 /hpf (0-2)
[2017-05-22 00:52] LABS: URINE BACTERIA FEW (NEG); URINE EPITHELIAL CELLS 0 - 2 /hpf (0-5)
[2017-05-22 00:57] LABS: BENZODIAZEPINES, UR NEGATIVE (NEGATIVE)
[2017-05-22 00:58] LABS: BARBITURATES, UR NEGATIVE (NEGATIVE); OPIATES, UR NEGATIVE (NEGATIVE); PHENCYCLIDINE, UR NEGATIVE (NEGATIVE)
--- NOTE | 2017-05-22 07:15 | ED PDOC ---
Physical Exam Vital Signs Reviewed: Yes Vital Signs Temp Pulse Resp BP Pulse Ox 05/22/17 09:38 98.1 F 109 H 18 146/90 100 05/22/17 07:20 98.8 F 113 H 18 144/90 95 05/22/17 06:15 89 18 139/85 97 05/22/17 03:30 85 18 134/89 98 05/22/17 01:30 98.0 F 82 18 145/103 H 99 05/21/17 23:30 97.5 F L 81 19 133/93 H 100 05/21/17 21:00 97.2 F L 104 H 16 138/102 H 95 Temperature: Afebrile Blood Pressure: Hypertensive Pulse: Regular Respiratory Rate: Normal Appearance: Positive for: Well-Appearing Pain Distress: None Mental Status: Positive for: Alert and Oriented X 3 - Systems Exam Head: Present: Atraumatic, Normocephalic Pupils: Present: PERRL Extroacular Muscles: Present: EOMI Conjunctiva: Present: Normal Ears: Present: Normal Mouth: Present: Normal Teeth Pharnyx: Present: Normal Nose (External): Present: Atraumatic Nose (Internal): Present: Normal Inspection Neck: Present: Normal Range of Motion, Trachea Midline. No: MIDLINE TENDERNESS Respiratory/Chest: Present: Clear to Auscultation, Good Air Exchange Cardiovascular: Present: Regular Rate and Rhythm, Normal S1, S2. No: Murmurs Abdomen: Present: Normal Bowel Sounds, Other (well nourished male, no focal tenderness) Back: Present: Normal Inspection. No: CVA Tenderness, Midline Tenderness Upper Extremity: Present: Normal Inspection, Normal ROM, NORMAL PULSES, Neurovascularly Intact Lower Extremity: Present: Normal Inspection, NORMAL PULSES, Neurovascularly Intact Neurological: Present: GCS=15, CN II-XII Intact, Speech Normal Skin: Present: Warm Psychiatric: Present: Alert, Other (flat affect, cooperative) Medical Decision Making ED Course and Treatment: 05/22/17 07:00 Case signed out to me by Dr. Cedillo. Patient is a 32 year old male, whose PMH includes disability due to psychiatric reasons, who presented to the emergency department for suicidal ideation with plan. Patient has been medically cleared and is currently awaiting evaluation by psych for further disposition. 05/22/17 08:50 Clinical mental health worker evaluated patient. Currently awaiting psych screening from [facility]. 05/22/17 12:24 J[facility] psych screening evaluated patient and was denied Justin YEN/Dr Campos) re-evaluated patient, will admit patient; voluntary commitment pt is made aware of his medical results agrees with admission Re-evaluation Time: 12:24 Reassessment Condition: Unchanged - Lab Interpretations Lab Results: 05/21/17 22:41 05/21/17 22:41 Lab Results 05/22/17 00:20: Urine Opiates Screen Negative, Urine Methadone Screen Negative, Ur Barbiturates Screen Negative, Ur Phencyclidine Scrn Negative, Ur Amphetamines Screen Negative, U Benzodiazepines Scrn Negative, U Oth Cocaine Metabols Negative, U Cannabinoids Screen Positive H 05/22/17 00:20: Urine Color Yellow, Urine Appearance Clear, Urine pH 6.0, Ur Specific [place] >= 1.030, Urine Protein Trace H, Urine Glucose (UA) Negative, Urine Ketones Trace H, Urine Blood Negative, Urine Nitrate Negative, Urine Bilirubin Negative, Urine Urobilinogen 0.2, Ur Leukocyte Esterase Negative, Urine RBC 0 - 2, Urine WBC 1 - 3, Ur Epithelial Cells 0 - 2, Urine Bacteria Few 05/21/17 22:41: Alcohol, Quantitative < 10 05/21/17 22:41: Salicylates < 1 L, Acetaminophen < 10.0 L 05/21/17 22:41: Sodium 141, Potassium 4.0, Chloride 106, Carbon Dioxide 25, Anion Gap 14, BUN 17, Creatinine 0.8, Est GFR ( Amer) > 60, Est GFR (Non- Af Amer) > 60, Random Glucose 98, Calcium 10.2, Total Bilirubin 0.3, AST 32, ALT 44, Alkaline Phosphatase 101, Lactate Dehydrogenase 416, Total Creatine Kinase 63, Troponin I < 0.01, Total Protein 7.7, Albumin 4.4, Globulin 3.3, Albumin/Globulin Ratio 1.3, Lipase 70 05/21/17 22:41: PT 11.9, INR 1.04 05/21/17 22:41: WBC 11.5 H D, RBC 5.05, Hgb 16.0, Hct 45.6, MCV 90.3, MCH 31.7, MCHC 35.1, RDW 12.7, Plt Count 280, MPV 11.4 H, Gran % 63.8, Lymph % (Auto) 25.7 , [place] % (Auto) 8.9 H, Eos % (Auto) 1.4 L, Baso % (Auto) 0.2, Gran # 7.32 H, Lymph # (Auto) 3.0, [place] # (Auto) 1.0 H, Eos # (Auto) 0.2, Baso # (Auto) 0.02 I have reviewed the lab results: Yes Interpretation: Abnormal lab values (UTOX + cannibis) - RAD Interpretation Narrative RAD Interpretations (Text): 05/22/17 10:00 Chest X-ray: Creator : Ramon Nguyen MD COMPARISON: 04/28/2017 FINDINGS: LUNGS: No active pulmonary disease. PLEURA: No significant pleural effusion identified, no pneumothorax apparent. CARDIOVASCULAR: Normal. OSSEOUS STRUCTURES: No significant abnormalities. VISUALIZED UPPER ABDOMEN: Normal. OTHER FINDINGS: None. IMPRESSION: No active disease. Radiology Orders: 05/21/17 21:19 CHEST PORTABLE [RAD] Stat [employer] Commod[employer] Inspector: Radiologist - Medication Orders Current Medication Orders: Discontinued Medications Lorazepam (Ativan) 2 mg PO ONCE ONE PRN Reason: Protocol Stop: 05/22/17 00:05 Last Admin: 05/22/17 00:25 Dose: 2 mg - Scribe Statement The provider has reviewed the documentation as recorded by the Mickie Vo Provider Scribe Attestation: All medical record entries made by the Naomie were at my direction and personally dictated by me. I have reviewed the chart and agree that the record accurately reflects my personal performance of the history, physical exam, medical decision making, and the department course for this patient. I have also personally directed, reviewed, and agree with the discharge instructions and disposition. Disposition/Present on Arrival - Present on Arrival Any Indicators Present on Arrival: No History of DVT/PE: No History of Uncontrolled Diabetes: No Urinary Catheter: No History of Decub. Ulcer: No History Surgical Site Infection Following: None - Disposition Have Diagnosis and Disposition been Completed?: Yes Diagnosis: Bipolar 1 disorder, Depression Disposition: HOSPITALIZED Disposition Time: 12:26 Patient Plan: Admission Condition: STABLE Referrals: PCP,NO [Primary Care Provider] - Follow up with primary Forms: [employer] ([place])
--- NOTE | 2017-05-22 09:30 | RAD ---
HISTORY: Confusion COMPARISON: 04/28/2017 FINDINGS: LUNGS: No active pulmonary disease. PLEURA: No significant pleural effusion identified, no pneumothorax apparent. CARDIOVASCULAR: Normal. OSSEOUS STRUCTURES: No significant abnormalities. VISUALIZED UPPER ABDOMEN: Normal. OTHER FINDINGS: None. IMPRESSION: No active disease.
[2017-05-22 14:00] VITALS: O2SAT 96
[2017-05-22] MEDS ORDERED: DiphenhydrAMINE 50 mg/ml Inj IM PRN (15:49)
[2017-05-22] MEDS ORDERED: Magnesium Hydroxide Susp 30 ml UD PO PRN (15:58)
[2017-05-22] MEDS ORDERED: Alum-Mag Hydrox-Simethicone Susp (30 mL) PO PRN (15:59)
[2017-05-22] MEDS ORDERED: Divalproex 250 mg DR (BID formulation) PO SCH (16:00)
[2017-05-22] MEDS: Divalproex 500 mg DR(BID formulation) PO SCH (17:38)
--- NOTE | 2017-05-22 20:19 | PCM.BM ---
<Lazara Huerta - Last Filed: 05/22/17 20:15> Treatment Plan Problems - Problems identified on initial assessmt high risk suicidal Date Initiated: 05/22/17 Time Initiated: 20:00 Assessment reference: NA Status: Active hopelesness/helplessness Date Initiated: 05/22/17 Time Initiated: 20:00 Assessment reference: NA Status: Active feeling of worthlesness Date Initiated: 05/22/17 Time Initiated: 20:00 Assessment reference: NA Status: Active alterd sleep pattern Date Initiated: 05/22/17 Time Initiated: 20:00 Assessment reference: NA Status: Active medicationnonadherence Date Initiated: 05/22/17 Time Initiated: 20:00 Assessment reference: NA Status: Active Treatment assets and liabiliti Patient Assests: adapts well, cooperative, ADL independent, negotiates basic needs Patient Liabilities: financial problems, poor support system - Milieu Protocol Maintain good personal hygiene: every shift Encourage regular showers, every shift Remind patient to perform daily oral care, every shift Assist patient to perform ADL's Conduct patient checks and document Observation sheet: 1:1 Maintain personal safety: every shift Educate patient to report safety concerns to staff, every shift Monitor environment for contraband/sharps Medication safety: Monitor for expected outcome, potential side effects: every shift, Assess barriers to learning: every shift, Assess readiness for medication education: every shift Family Contact Family involvement: Family/SO is involved - Goals for Treatment Patient goals for treatment: to get back on his medication Discharge/Continuing Care - Education Needs Education Needs: Patient Medication, Patient Diagnosis/Disease Process, Patient Coping Skills, Patient Personal Hygiene/Grooming - Discharge Discharge Criteria: Tolerates medication w/o severe side effects, Free of Suicidal thoughts, Free of agitation, Normal sleep pattern <Jaylene Leggett - Last Filed: 05/23/17 12:27> - Diagnosis (1) Bipolar 1 disorder, depressed, severe Status: Acute Interventions: Klonopin 1 mg po TID for mood control Depakote 500 mg po BID for mood control, check VPA level Neurontin 600 mg po TID, off label for anxiety and mood control Seroquel 200 mg po TID for mood and anger control as well as paranoia 05/23/17 12:27 <Blank Barnes - Last Filed: 05/25/17 15:59> Family Contact Family involvement: Family/SO is involved <Kayli Yo - Last Filed: 05/27/17 12:11>
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
[2017-05-23] MEDS: Divalproex 500 mg DR(BID formulation) PO SCH ×2 (09:37→17:13)
--- NOTE | 2017-05-23 10:02 | CARD ---
APPROVED REPORT EKG Measurement Heart [id number] <Conclusion> Normal sinus rhythm Normal ECG No change
--- NOTE | 2017-05-23 12:26 | PCM.PYCHPN ---
Psychiatric Progress Note - Psychiatric Progress Note Patient seen today, length of contact: 35 MIN Problems Identified/Issues Discussed: PLEASE REFER TO YONNY JONES'S INITIAL PSYCHIATRIC EVALUATION ON 04/28/17 FOR FULL ASSESSMENT. Patient is a single 32 year old male, with a history of Schizoaffective Disorder , numerous prior admissions, voluntary and involuntary, most recently hospitalized at [facility] 04/28/17-05/13/17 until involuntary transfer to [facility] who presents to the emergency department expressing suicidal ideation. ER records indicated that father called EMS after patient expressed that he was feeling "really bad today" and was planning on using a knife to cut and kill himself. Screeners from [facility] evaluated patient in the ER and did not accept patient for involuntary transfer. I reviewed recent notes and patient was interviewed at bedside. Patient is well known to this provider from his multiple involuntary admissions to [facility] and prior interviews during his last admission to this unit. He remembers me from my treatment at [facility]. Patient can be aggressive, intimidating and self-escalates easily. Multiple code Shankar were called during his prior admission to this unit. Patient is alert and well-oriented to circumstances. He admits to feeling depressed prior to admission. Indicates that [facility] gave him a one week supply of Seroquel, Prozac and Neurontin. After he ran out of his medications he became harman and depressed again. He denies feeling suicidal, indicates he is "fine" however affect is listless and constricted. Grooming remains fair. Patient denies any new concerns and has been tolerating his medications. Doesn't appear to be in any physical distress. Staff notes indicate patient has been in fair control thus far. Seemed labile and guarded when he arrived on the unit yesterday. Thus far he has been compliant with his medications and there were no behavioral issues overnight. Diagnostic Results: BiPolar 1 Disorder, Depressed, Severe Borderline Personality Disorder Learning Disability Unspecified Cannabis Use Disorder Mental Status Examination - Homicidal Ideation Homicidal Ideation: No Goal/Treatment Plan - Goal/Treatment Plan Progress Toward Problem(s) and Goals/Treatment Plan: * group, milieu and supportive tx as tolerated * Klonopin 1 mg po TID for mood control * Depakote 500 mg po BID for mood control, check VPA level * Neurontin 600 mg po TID, off label for anxiety and mood control * Seroquel 200 mg po TID for mood and anger control as well as paranoia * Medical consult prn * Vitals reviewed and noted below: 05/23/17 07:26 Temperature 98.0 F Pulse Rate 71 Respiratory 20 Rate Blood Pressure 117/74 ER LABS AND STUDIES EKG: Ordered, reviewed, and independently interpreted the EKG. Rate : 85 BPM Rhythm : NSR 05/22/17 00:20: Urine Opiates Screen Negative, Urine Methadone Screen Negative, Ur Barbiturates Screen Negative, Ur Phencyclidine Scrn Negative, Ur Amphetamines Screen Negative, U Benzodiazepines Scrn Negative, U Oth Cocaine Metabols Negative, U Cannabinoids Screen Positive H 05/22/17 00:20: Urine Color Yellow, Urine Appearance Clear, Urine pH 6.0, Ur Specific [place] >= 1.030, Urine Protein Trace H, Urine Glucose (UA) Negative, Urine Ketones Trace H, Urine Blood Negative, Urine Nitrate Negative, Urine Bilirubin Negative, Urine Urobilinogen 0.2, Ur Leukocyte Esterase Negative, Urine RBC 0 - 2, Urine WBC 1 - 3, Ur Epithelial Cells 0 - 2, Urine Bacteria Few 05/21/17 22:41: Alcohol, Quantitative < 10 05/21/17 22:41: Salicylates < 1 L, Acetaminophen < 10.0 L 05/21/17 22:41: Sodium 141, Potassium 4.0, Chloride 106, Carbon Dioxide 25, Anion Gap 14, BUN 17, Creatinine 0.8, Est GFR ( Amer) > 60, Est GFR (Non- Af Amer) > 60, Random Glucose 98, Calcium 10.2, Total Bilirubin 0.3, AST 32, ALT 44, Alkaline Phosphatase 101, Lactate Dehydrogenase 416, Total Creatine Kinase 63, Troponin I < 0.01, Total Protein 7.7, Albumin 4.4, Globulin 3.3, Albumin/Globulin Ratio 1.3, Lipase 70 05/21/17 22:41: PT 11.9, INR 1.04 05/21/17 22:41: WBC 11.5 H D, RBC 5.05, Hgb 16.0, Hct 45.6, MCV 90.3, MCH 31.7, MCHC 35.1, RDW 12.7, Plt Count 280, MPV 11.4 H, Gran % 63.8, Lymph % (Auto) 25.7 , [place] % (Auto) 8.9 H, Eos % (Auto) 1.4 L, Baso % (Auto) 0.2, Gran # 7.32 H, Lymph # (Auto) 3.0, [place] # (Auto) 1.0 H, Eos # (Auto) 0.2, Baso # (Auto) 0.02 - RAD Interpretation 05/22/17 10:00 Chest X-ray: Creator : Ramon Nguyen MD COMPARISON: 04/28/2017 FINDINGS: LUNGS: No active pulmonary disease. PLEURA: No significant pleural effusion identified, no pneumothorax apparent. CARDIOVASCULAR: Normal. OSSEOUS STRUCTURES: No significant abnormalities. VISUALIZED UPPER ABDOMEN: Normal. OTHER FINDINGS: None. IMPRESSION: No active disease.
[2017-05-24] MEDS: Divalproex 500 mg DR(BID formulation) PO SCH ×2 (08:38→15:41)
[2017-05-25] MEDS: Divalproex 500 mg DR(BID formulation) PO SCH ×2 (09:17→15:52)
--- NOTE | 2017-05-25 14:28 | PCM.PYCHPN ---
Psychiatric Progress Note - Psychiatric Progress Note Patient seen today, length of contact: 30min Patient Chief Complaint: "I needed to be on my medications" Problems Identified/Issues Discussed: Suicide/ homicide prevention, past psychiatric h/o, current psychiatric symptoms , medical problems, risk/benefits and alternatives of medications, medications compliance, coping strategies, substance abuse h/o, relapse prevention, importance of follow up with psychiatrist and therapist, discharge plan. Medical Problems: pt is obese Diagnostic Results: 05/21/17 22:41 05/21/17 22:41 Lab Results 05/23/17 14:27: Valproic Acid 38 L 05/22/17 00:20: Urine Opiates Screen Negative, Urine Methadone Screen Negative, Ur Barbiturates Screen Negative, Ur Phencyclidine Scrn Negative, Ur Amphetamines Screen Negative, U Benzodiazepines Scrn Negative, U Oth Cocaine Metabols Negative, U Cannabinoids Screen Positive H 05/22/17 00:20: Urine Color Yellow, Urine Appearance Clear, Urine pH 6.0, Ur Specific [place] >= 1.030, Urine Protein Trace H, Urine Glucose (UA) Negative, Urine Ketones Trace H, Urine Blood Negative, Urine Nitrate Negative, Urine Bilirubin Negative, Urine Urobilinogen 0.2, Ur Leukocyte Esterase Negative, Urine RBC 0 - 2, Urine WBC 1 - 3, Ur Epithelial Cells 0 - 2, Urine Bacteria Few 05/21/17 22:41: Alcohol, Quantitative < 10 05/21/17 22:41: Salicylates < 1 L, Acetaminophen < 10.0 L 05/21/17 22:41: Sodium 141, Potassium 4.0, Chloride 106, Carbon Dioxide 25, Anion Gap 14, BUN 17, Creatinine 0.8, Est GFR ( Amer) > 60, Est GFR (Non- Af Amer) > 60, Random Glucose 98, Calcium 10.2, Total Bilirubin 0.3, AST 32, ALT 44, Alkaline Phosphatase 101, Lactate Dehydrogenase 416, Total Creatine Kinase 63, Troponin I < 0.01, Total Protein 7.7, Albumin 4.4, Globulin 3.3, Albumin/Globulin Ratio 1.3, Lipase 70 05/21/17 22:41: PT 11.9, INR 1.04 05/21/17 22:41: WBC 11.5 H D, RBC 5.05, Hgb 16.0, Hct 45.6, MCV 90.3, MCH 31.7, MCHC 35.1, RDW 12.7, Plt Count 280, MPV 11.4 H, Gran % 63.8, Lymph % (Auto) 25.7 , [place] % (Auto) 8.9 H, Eos % (Auto) 1.4 L, Baso % (Auto) 0.2, Gran # 7.32 H, Lymph # (Auto) 3.0, [place] # (Auto) 1.0 H, Eos # (Auto) 0.2, Baso # (Auto) 0.02 Vital Signs Temp Pulse Pulse Resp BP Pulse Ox 05/24/17 07:21 97.8 F 80 20 115/72 05/23/17 16:00 84 133/56 L 05/23/17 07:26 98.0 F 71 20 117/74 05/22/17 16:44 90 154/107 H 05/22/17 15:54 87 20 05/22/17 13:53 98.2 F 94 H 18 141/87 96 05/22/17 09:38 98.1 F 109 H 18 146/90 100 05/22/17 07:20 98.8 F 113 H 18 144/90 95 05/22/17 06:15 89 18 139/85 97 05/22/17 03:30 85 18 134/89 98 05/22/17 01:30 98.0 F 82 18 145/103 H 99 05/21/17 23:30 97.5 F L 81 19 133/93 H 100 05/21/17 21:00 97.2 F L 104 H 16 138/102 H 95 DSM 5 Symptoms Update: Patient is a single 32 year old male, with a history of Schizoaffective Disorder , numerous prior admissions, voluntary and involuntary, most recently hospitalized at [facility] [place] 04/28/17-05/13/17 until involuntary transfer to [facility] (pt was discharged from [facility] [place] at the same day of the transfer with decreased dose of meds), who presents to the emergency department expressing suicidal ideation. ER records indicated that father called EMS after patient expressed that he was feeling "really bad today" and was planning on using a knife to cut and kill himself. Screeners from [facility] [place] evaluated patient in the ER and did not accept patient for involuntary transfer. patient is very familiar to this advertising copy writer from previous psychiatric admission, patient was seen and examined today at the treatment team meeting, patient presented to be withdrawn and irritable, patient reported that she was discharged from [facility] within few minutes of transfer, patient reported that only one week of supply was given to the pt and he ran out of it, patient reports that while being on medication he was feeling better , patient is willing to participate in treatment plan, wants to be stabilized and medications, patient does not want to go to the treatment program and he wants to have one-to-one therapy, patient was advised that recommendations will be intensive outpatient program but patient does not want to go for for it. Pt denies feeling suicidal, indicates he is "fine" however affect is listless and constricted. Grooming remains fair. as per staff pt was threatening to harm others yesterday because his clothes were not washed immediately, pt was educated about unit rules and regulations, pt also was educated about relaxation techniques and breathing exercises. Patient tolerates medications well, no side effects observed or reported, aims 0 , no EPS. Diagnostic Results: BiPolar 1 Disorder, Depressed, Severe Borderline Personality Disorder rule out antisocial personality disorder Learning Disability Unspecified Cannabis Use Disorder Medication Change: Yes (resumed and adjusted) Medical Record Reviewed: Yes Consults ordered or reviewed: Patient is relatively healthy know any intent to call for medical consultation, patient was seen by medical team in the emergency room. Mental Status Examination - Cognitive Function Orientation: Person, Place, Situation Memory: Intact Attention: Poor Concentration: Poor Association: WNL Fund of Knowledge: WNL - Mood Mood: Depressed, Anxious (and irritable) - Affect Affect: Broad, Other (irritable and angry) - Speech Speech: Appropriate - Formal Thought Process Formal Thought Process: No Impairment - Suicidal Ideation Suicidal Ideation: No - Homicidal Ideation Homicidal Ideation: No Goal/Treatment Plan - Goal/Treatment Plan Need for Continued Stay: Remain at risks for inpatient hospitalization, Severe depression anxiety, Discharge may exacerbated symptoms, Failed transitioning, Severe functional impairment Progress Toward Problem(s) and Goals/Treatment Plan: group, milieu and supportive tx as tolerated Klonopin 1 mg po TID for mood control Depakote 500 mg po BID for mood control, check VPA level Neurontin 600 mg po TID, off label for anxiety and mood control Seroquel 200 mg po TID for mood and anger control as well as paranoia Medical consult prn Family involvement Follow up on labs Will monitor closely Pt was educated about risk/benefits and alternatives of medications, coping strategies (safety plan, suicide prevention), relapse prevention, importance of follow up with psychiatrist and therapist, stay away from drugs/alcohol/smoking Estimated Date of D/C: 05/29/17
[2017-05-26 07:37] VITALS: RESP 20
[2017-05-26] MEDS: Divalproex 500 mg DR(BID formulation) PO SCH ×2 (09:25→17:15)
--- NOTE | 2017-05-26 16:28 | PCM.PYCHPN ---
Psychiatric Progress Note - Psychiatric Progress Note Patient seen today, length of contact: 30min Patient Chief Complaint: "I wanted to ask to increase my medications" Problems Identified/Issues Discussed: Suicide/ homicide prevention, past psychiatric h/o, current psychiatric symptoms , medical problems, risk/benefits and alternatives of medications, medications compliance, coping strategies, substance abuse h/o, relapse prevention, importance of follow up with psychiatrist and therapist, discharge plan. Medical Problems: pt is obese Diagnostic Results: 05/21/17 22:41 05/21/17 22:41 Lab Results 05/23/17 14:27: Valproic Acid 38 L 05/22/17 00:20: Urine Opiates Screen Negative, Urine Methadone Screen Negative, Ur Barbiturates Screen Negative, Ur Phencyclidine Scrn Negative, Ur Amphetamines Screen Negative, U Benzodiazepines Scrn Negative, U Oth Cocaine Metabols Negative, U Cannabinoids Screen Positive H 05/22/17 00:20: Urine Color Yellow, Urine Appearance Clear, Urine pH 6.0, Ur Specific [place] >= 1.030, Urine Protein Trace H, Urine Glucose (UA) Negative, Urine Ketones Trace H, Urine Blood Negative, Urine Nitrate Negative, Urine Bilirubin Negative, Urine Urobilinogen 0.2, Ur Leukocyte Esterase Negative, Urine RBC 0 - 2, Urine WBC 1 - 3, Ur Epithelial Cells 0 - 2, Urine Bacteria Few 05/21/17 22:41: Alcohol, Quantitative < 10 05/21/17 22:41: Salicylates < 1 L, Acetaminophen < 10.0 L 05/21/17 22:41: Sodium 141, Potassium 4.0, Chloride 106, Carbon Dioxide 25, Anion Gap 14, BUN 17, Creatinine 0.8, Est GFR ( Amer) > 60, Est GFR (Non- Af Amer) > 60, Random Glucose 98, Calcium 10.2, Total Bilirubin 0.3, AST 32, ALT 44, Alkaline Phosphatase 101, Lactate Dehydrogenase 416, Total Creatine Kinase 63, Troponin I < 0.01, Total Protein 7.7, Albumin 4.4, Globulin 3.3, Albumin/Globulin Ratio 1.3, Lipase 70 05/21/17 22:41: PT 11.9, INR 1.04 05/21/17 22:41: WBC 11.5 H D, RBC 5.05, Hgb 16.0, Hct 45.6, MCV 90.3, MCH 31.7, MCHC 35.1, RDW 12.7, Plt Count 280, MPV 11.4 H, Gran % 63.8, Lymph % (Auto) 25.7 , [place] % (Auto) 8.9 H, Eos % (Auto) 1.4 L, Baso % (Auto) 0.2, Gran # 7.32 H, Lymph # (Auto) 3.0, [place] # (Auto) 1.0 H, Eos # (Auto) 0.2, Baso # (Auto) 0.02 Vital Signs Temp Pulse Pulse Resp BP Pulse Ox 05/24/17 07:21 97.8 F 80 20 115/72 05/23/17 16:00 84 133/56 L 05/23/17 07:26 98.0 F 71 20 117/74 05/22/17 16:44 90 154/107 H 05/22/17 15:54 87 20 05/22/17 13:53 98.2 F 94 H 18 141/87 96 05/22/17 09:38 98.1 F 109 H 18 146/90 100 05/22/17 07:20 98.8 F 113 H 18 144/90 95 05/22/17 06:15 89 18 139/85 97 05/22/17 03:30 85 18 134/89 98 05/22/17 01:30 98.0 F 82 18 145/103 H 99 05/21/17 23:30 97.5 F L 81 19 133/93 H 100 05/21/17 21:00 97.2 F L 104 H 16 138/102 H 95 DSM 5 Symptoms Update: Patient is a single 32 year old male, with a history of Schizoaffective Disorder , numerous prior admissions, voluntary and involuntary, [place] [facility] [place] until involuntary transfer to [facility] (pt was discharged from [facility] [place] at the same day of the transfer with decreased dose of meds), who presents to the emergency department expressing suicidal ideation. ER records indicated that father called EMS after patient expressed that he was feeling "really bad today" and was planning on using a knife to cut and kill himself. Screeners from [facility] [place] evaluated patient in the ER and did not accept patient for involuntary transfer. patient is very familiar to this chief writer from previous psychiatric admission, patient was seen next to the nursing station, pt is irritable, angry, at the same time pt deems holding himself, pt was offered to increase meds, pt said "I wanted to ask you to increase my seroquel". pt appears to be anxious, flat affect. Pt denies feeling suicidal, denied thoughts of harming others. indicates he is "fine" however affect is listless and constricted. Grooming remains fair. so far no aggression or agitation. Patient tolerates medications well, no side effects observed or reported, aims 0 , no EPS. Diagnostic Results: BiPolar 1 Disorder, Depressed, Severe Borderline Personality Disorder rule out antisocial personality disorder Learning Disability Unspecified Cannabis Use Disorder Medication Change: Yes (depakote/klonopin/seroquel increased) Medical Record Reviewed: Yes Consults ordered or reviewed: Patient is relatively healthy know any intent to call for medical consultation, patient was seen by medical team in the emergency room. Mental Status Examination - Cognitive Function Orientation: Person, Place, Situation Memory: Intact Attention: Poor Concentration: Poor Association: WNL Fund of Knowledge: WNL - Mood Mood: Depressed, Anxious (and irritable) - Affect Affect: Broad, Other (irritable and angry) - Speech Speech: Appropriate - Formal Thought Process Formal Thought Process: No Impairment - Suicidal Ideation Suicidal Ideation: No - Homicidal Ideation Homicidal Ideation: No Goal/Treatment Plan - Goal/Treatment Plan Need for Continued Stay: Remain at risks for inpatient hospitalization, Severe depression anxiety, Discharge may exacerbated symptoms, Failed transitioning, Severe functional impairment Progress Toward Problem(s) and Goals/Treatment Plan: group, milieu and supportive tx as tolerated Klonopin 2 mg po TID for mood control Depakote 500 mg po BID and hs for mood control, check VPA level Neurontin 600 mg po TID, off label for anxiety and mood control Seroquel 400mg amhs for mood and anger control as well as paranoia Medical consult prn Family involvement Follow up on labs Will monitor closely Pt was educated about risk/benefits and alternatives of medications, coping strategies (safety plan, suicide prevention), relapse prevention, importance of follow up with psychiatrist and therapist, stay away from drugs/alcohol/smoking Estimated Date of D/C: 05/29/17
[2017-05-26] MEDS: Divalproex 250 mg DR (BID formulation) PO SCH (21:23)
[2017-05-27] MEDS: Divalproex 500 mg DR(BID formulation) PO SCH ×2 (09:01→17:26)
--- NOTE | 2017-05-27 15:27 | PCM.PYCHPN ---
Psychiatric Progress Note - Psychiatric Progress Note Patient seen today, length of contact: 30min Patient Chief Complaint: "I am feeling fine" Problems Identified/Issues Discussed: Suicide/ homicide prevention, past psychiatric h/o, current psychiatric symptoms , medical problems, risk/benefits and alternatives of medications, medications compliance, coping strategies, substance abuse h/o, relapse prevention, importance of follow up with psychiatrist and therapist, discharge plan. Medical Problems: pt is obese Diagnostic Results: 05/21/17 22:41 05/21/17 22:41 Lab Results 05/23/17 14:27: Valproic Acid 38 L 05/22/17 00:20: Urine Opiates Screen Negative, Urine Methadone Screen Negative, Ur Barbiturates Screen Negative, Ur Phencyclidine Scrn Negative, Ur Amphetamines Screen Negative, U Benzodiazepines Scrn Negative, U Oth Cocaine Metabols Negative, U Cannabinoids Screen Positive H 05/22/17 00:20: Urine Color Yellow, Urine Appearance Clear, Urine pH 6.0, Ur Specific [place] >= 1.030, Urine Protein Trace H, Urine Glucose (UA) Negative, Urine Ketones Trace H, Urine Blood Negative, Urine Nitrate Negative, Urine Bilirubin Negative, Urine Urobilinogen 0.2, Ur Leukocyte Esterase Negative, Urine RBC 0 - 2, Urine WBC 1 - 3, Ur Epithelial Cells 0 - 2, Urine Bacteria Few 05/21/17 22:41: Alcohol, Quantitative < 10 05/21/17 22:41: Salicylates < 1 L, Acetaminophen < 10.0 L 05/21/17 22:41: Sodium 141, Potassium 4.0, Chloride 106, Carbon Dioxide 25, Anion Gap 14, BUN 17, Creatinine 0.8, Est GFR ( Amer) > 60, Est GFR (Non- Af Amer) > 60, Random Glucose 98, Calcium 10.2, Total Bilirubin 0.3, AST 32, ALT 44, Alkaline Phosphatase 101, Lactate Dehydrogenase 416, Total Creatine Kinase 63, Troponin I < 0.01, Total Protein 7.7, Albumin 4.4, Globulin 3.3, Albumin/Globulin Ratio 1.3, Lipase 70 05/21/17 22:41: PT 11.9, INR 1.04 05/21/17 22:41: WBC 11.5 H D, RBC 5.05, Hgb 16.0, Hct 45.6, MCV 90.3, MCH 31.7, MCHC 35.1, RDW 12.7, Plt Count 280, MPV 11.4 H, Gran % 63.8, Lymph % (Auto) 25.7 , [place] % (Auto) 8.9 H, Eos % (Auto) 1.4 L, Baso % (Auto) 0.2, Gran # 7.32 H, Lymph # (Auto) 3.0, [place] # (Auto) 1.0 H, Eos # (Auto) 0.2, Baso # (Auto) 0.02 Vital Signs Temp Pulse Pulse Resp BP Pulse Ox 05/24/17 07:21 97.8 F 80 20 115/72 05/23/17 16:00 84 133/56 L 05/23/17 07:26 98.0 F 71 20 117/74 05/22/17 16:44 90 154/107 H 05/22/17 15:54 87 20 05/22/17 13:53 98.2 F 94 H 18 141/87 96 05/22/17 09:38 98.1 F 109 H 18 146/90 100 05/22/17 07:20 98.8 F 113 H 18 144/90 95 05/22/17 06:15 89 18 139/85 97 05/22/17 03:30 85 18 134/89 98 05/22/17 01:30 98.0 F 82 18 145/103 H 99 05/21/17 23:30 97.5 F L 81 19 133/93 H 100 05/21/17 21:00 97.2 F L 104 H 16 138/102 H 95 DSM 5 Symptoms Update: Patient is a single 32 year old male, with a history of Schizoaffective Disorder , numerous prior admissions, voluntary and involuntary, most recently [place] [facility] [place]17-05/13/17 until involuntary transfer to [facility] (pt was discharged from [facility] [place] at the same day of the transfer with decreased dose of meds), who presents to the emergency department expressing suicidal ideation. ER records indicated that father called EMS after patient expressed that he was feeling "really bad today" and was planning on using a knife to cut and kill himself. Screeners from [facility] [place] evaluated patient in the ER and did not accept patient for involuntary transfer. patient was seen in the treatment team meeting, patient presented to be angry, irritable, but no aggression, no agitation, patient reported that he likes that new setting of the medications, patient reported that he has no thoughts or intents of harming himself or others, patient is willing to be followed up with outpatient provider, does not want to go to intensive outpatient program. As per staff he shouldn't does not have any agitation, no aggression, patient polite, at times angry demeanor, but overall in control. Patient tolerates medications well, no side effects observed or reported, aims 0 , no EPS. Diagnostic Results: BiPolar 1 Disorder, Depressed, Severe Borderline Personality Disorder rule out antisocial personality disorder Learning Disability Unspecified Cannabis Use Disorder Medication Change: No (depakote/klonopin/seroquel increased yesterday) Medical Record Reviewed: Yes Consults ordered or reviewed: Patient is relatively healthy know any intent to call for medical consultation, patient was seen by medical team in the emergency room. Mental Status Examination - Cognitive Function Orientation: Person, Place, Situation Memory: Intact Attention: Poor (improvement) Concentration: Poor (improvement) Association: WNL Fund of Knowledge: WNL - Mood Mood: Depressed (I'm fine), Anxious (I'm less anxious) - Affect Affect: Constricted, Other (irritable and angry) - Speech Speech: Appropriate - Formal Thought Process Formal Thought Process: No Impairment - Suicidal Ideation Suicidal Ideation: No - Homicidal Ideation Homicidal Ideation: No Goal/Treatment Plan - Goal/Treatment Plan Need for Continued Stay: Remain at risks for inpatient hospitalization, Severe depression anxiety, Discharge may exacerbated symptoms, Failed transitioning, Severe functional impairment Progress Toward Problem(s) and Goals/Treatment Plan: group, milieu and supportive tx as tolerated Klonopin 2 mg po TID for mood control Depakote 500 mg po BID and hs for mood control, check VPA level Neurontin 600 mg po TID, off label for anxiety and mood control Seroquel 400mg amhs for mood and anger control as well as paranoia Medical consult prn Family involvement Follow up on labs Will monitor closely Pt was educated about risk/benefits and alternatives of medications, coping strategies (safety plan, suicide prevention), relapse prevention, importance of follow up with psychiatrist and therapist, stay away from drugs/alcohol/smoking Estimated Date of D/C: 05/29/17
[2017-05-27] MEDS: Divalproex 250 mg DR (BID formulation) PO SCH (21:16)
[2017-05-28] MEDS: Divalproex 500 mg DR(BID formulation) PO SCH ×2 (09:05→17:47)
--- NOTE | 2017-05-28 14:23 | PCM.PYCHPN ---
Psychiatric Progress Note - Psychiatric Progress Note Patient seen today, length of contact: 30min Patient Chief Complaint: "I am feeling fine" Problems Identified/Issues Discussed: Suicide/ homicide prevention, past psychiatric h/o, current psychiatric symptoms , medical problems, risk/benefits and alternatives of medications, medications compliance, coping strategies, substance abuse h/o, relapse prevention, importance of follow up with psychiatrist and therapist, discharge plan. Medical Problems: pt is obese Diagnostic Results: 05/21/17 22:41 05/21/17 22:41 Lab Results 05/23/17 14:27: Valproic Acid 38 L 05/22/17 00:20: Urine Opiates Screen Negative, Urine Methadone Screen Negative, Ur Barbiturates Screen Negative, Ur Phencyclidine Scrn Negative, Ur Amphetamines Screen Negative, U Benzodiazepines Scrn Negative, U Oth Cocaine Metabols Negative, U Cannabinoids Screen Positive H 05/22/17 00:20: Urine Color Yellow, Urine Appearance Clear, Urine pH 6.0, Ur Specific [place] >= 1.030, Urine Protein Trace H, Urine Glucose (UA) Negative, Urine Ketones Trace H, Urine Blood Negative, Urine Nitrate Negative, Urine Bilirubin Negative, Urine Urobilinogen 0.2, Ur Leukocyte Esterase Negative, Urine RBC 0 - 2, Urine WBC 1 - 3, Ur Epithelial Cells 0 - 2, Urine Bacteria Few 05/21/17 22:41: Alcohol, Quantitative < 10 05/21/17 22:41: Salicylates < 1 L, Acetaminophen < 10.0 L 05/21/17 22:41: Sodium 141, Potassium 4.0, Chloride 106, Carbon Dioxide 25, Anion Gap 14, BUN 17, Creatinine 0.8, Est GFR ( Amer) > 60, Est GFR (Non- Af Amer) > 60, Random Glucose 98, Calcium 10.2, Total Bilirubin 0.3, AST 32, ALT 44, Alkaline Phosphatase 101, Lactate Dehydrogenase 416, Total Creatine Kinase 63, Troponin I < 0.01, Total Protein 7.7, Albumin 4.4, Globulin 3.3, Albumin/Globulin Ratio 1.3, Lipase 70 05/21/17 22:41: PT 11.9, INR 1.04 05/21/17 22:41: WBC 11.5 H D, RBC 5.05, Hgb 16.0, Hct 45.6, MCV 90.3, MCH 31.7, MCHC 35.1, RDW 12.7, Plt Count 280, MPV 11.4 H, Gran % 63.8, Lymph % (Auto) 25.7 , [place] % (Auto) 8.9 H, Eos % (Auto) 1.4 L, Baso % (Auto) 0.2, Gran # 7.32 H, Lymph # (Auto) 3.0, [place] # (Auto) 1.0 H, Eos # (Auto) 0.2, Baso # (Auto) 0.02 Vital Signs Temp Pulse Pulse Resp BP Pulse Ox 05/24/17 07:21 97.8 F 80 20 115/72 05/23/17 16:00 84 133/56 L 05/23/17 07:26 98.0 F 71 20 117/74 05/22/17 16:44 90 154/107 H 05/22/17 15:54 87 20 05/22/17 13:53 98.2 F 94 H 18 141/87 96 05/22/17 09:38 98.1 F 109 H 18 146/90 100 05/22/17 07:20 98.8 F 113 H 18 144/90 95 05/22/17 06:15 89 18 139/85 97 05/22/17 03:30 85 18 134/89 98 05/22/17 01:30 98.0 F 82 18 145/103 H 99 05/21/17 23:30 97.5 F L 81 19 133/93 H 100 05/21/17 21:00 97.2 F L 104 H 16 138/102 H 95 DSM 5 Symptoms Update: Patient is a single 32 year old male, with a history of Schizoaffective Disorder , numerous prior admissions, voluntary and involuntary[place] [facility] [place] until involuntary transfer to [facility] ([place] [facility] [place] the [place] with decreased dose of meds), who presents to the emergency department expressing suicidal ideation. ER records indicated that father called EMS after patient expressed that he was feeling "really bad today" and was planning on using a knife to cut and kill himself. Screen[place] [facility] [place] and did not accept patient for involuntary transfer. patient was seen next to the nursing station/ affect was irritable, but more reactive as per staff pt is better controlling his anger and impulses. pt c/o shoulder pain, tramadol was given. as per staff pt does not have any agitation, no aggression, patient polite, at times angry demeanor, but overall in control. Patient tolerates medications well, no side effects observed or reported, aims 0 , no EPS. Diagnostic Results: BiPolar 1 Disorder, Depressed, Severe Borderline Personality Disorder rule out antisocial personality disorder Learning Disability Unspecified Cannabis Use Disorder Medication Change: No (depakote/klonopin/seroquel increased yesterday) Medical Record Reviewed: Yes Mental Status Examination - Cognitive Function Orientation: Person, Place, Situation Memory: Intact Attention: Poor (improvement) Concentration: Poor (improvement) Association: WNL Fund of Knowledge: WNL - Mood Mood: Depressed (I'm fine), Anxious (I'm less anxious) - Affect Affect: Constricted, Other (irritable and angry) - Speech Speech: Appropriate - Formal Thought Process Formal Thought Process: No Impairment - Suicidal Ideation Suicidal Ideation: No - Homicidal Ideation Homicidal Ideation: No Goal/Treatment Plan - Goal/Treatment Plan Need for Continued Stay: Remain at risks for inpatient hospitalization, Severe depression anxiety, Discharge may exacerbated symptoms, Failed transitioning, Severe functional impairment Progress Toward Problem(s) and Goals/Treatment Plan: group, milieu and supportive tx as tolerated Klonopin 2 mg po TID for mood control Depakote 500 mg po BID and hs for mood control, check VPA level Neurontin 600 mg po TID, off label for anxiety and mood control Seroquel 400mg amhs for mood and anger control as well as paranoia Medical consult prn Family involvement Follow up on labs Will monitor closely Pt was educated about risk/benefits and alternatives of medications, coping strategies (safety plan, suicide prevention), relapse prevention, importance of follow up with psychiatrist and therapist, stay away from drugs/alcohol/smoking Estimated Date of D/C: 05/29/17
[2017-05-28] MEDS: Divalproex 250 mg DR (BID formulation) PO SCH (21:16)
[2017-05-29 07:10] VITALS: BP 117/80; PULSE 87; TEMP 98.4
[2017-05-29 07:56] LABS: BASO # 0.02 K/mm3 (0.0-2.0); BASO % 0.3 % (0.0-3.0); EOS # 0.2 (0.0-0.7); EOS % 2.4 % (1.5-5.0); GRAN # 3.53 (1.4-6.5); GRAN % 46.2 % (50.0-68.0); HEMOGLOBIN 15.5 g/dL (14.0-18.0); LYMPH # 3.3 (1.2-3.4); LYMPH % 43.5 % (22.0-35.0); MEAN CELL VOLUME 91.9 fl (80.0-105.0); MEAN CORPUSCULAR HEMOGLOBIN 31.3 pg (25.0-35.0); MEAN PLATELET VOLUME 11.5 fl (7.0-11.0); MONO # 0.6 (0.1-0.6); MONO % 7.6 % (1.0-6.0); RBC 4.96 10^6/uL (3.5-6.1); RED CELL DISTRIBUTION WIDTH 12.6 % (11.5-14.5); WHITE BLOOD COUNT 7.6 10^3/ul (4.5-11.0)
[2017-05-29 08:20] LABS: ALB/GLOB RATIO 1.3 (1.1-1.8); ALT/SGPT 25 U/L (7-56); AST/SGOT 28 U/L (17-59); BLOOD UREA NITROGEN 15 mg/dL (7-21); CALCIUM 10.1 mg/dL (8.4-10.5); GFR AFRICAN-AMERICAN > 60; GFR NON-AFRICAN AMERICAN > 60
[2017-05-29] MEDS: Divalproex 500 mg DR(BID formulation) PO SCH (09:10)
--- NOTE | 2017-06-01 10:01 | PCM.PYCHDC ---
Mental Status Examination - Mental Status Examination Orientation: Person, Place, Situation, Time Memory: Intact Mood: Neutral Affect: Constricted (but more reactive and mood congruent) Speech: Appropriate (but underproductive) Attention: WNL (with much improvement) Concentration: WNL (with much improvement) Association: WNL Fund of Knowledge: Poor (baseline) Formal Thought Process: Other (thought process is concrete) Description of patient's judgement and insight: Pt has improved insight into mental illness, pt was compliant with medications and unit rules and regulations, pt was going to groups, was calm, cooperative, socially appropriate, no behavioral incidents, no agitation, no aggression. Psychotic Thoughts and Behaviors: Pt denied v/a/t hallucinations, denied paranoid ideations, pt does not appear to be psychotic, and thought process is goal directed. Suicidal Ideation: No Current Homicidal Ideation?: No Plan: pt adamantly denied thoughts of harming self or others denied intent or plan. Discharge Summary - Discharge Note Reason for Hospitalization: irritability, agitation, thoughts of harming self. Psychiatric History (includes Medical, Family, Personal Hx): pt has long h/o mental illness, impulse control disorder Laboratory Data: 05/29/17 07:30 05/29/17 07:30 Lab Results 05/29/17 07:30: WBC 7.6 D, RBC 4.96, Hgb 15.5, Hct 45.6, MCV 91.9, MCH 31.3, MCHC 34.0, RDW 12.6, Plt Count 240, MPV 11.5 H, Gran % 46.2 L, Lymph % (Auto) 43.5 H, [place] % (Auto) 7.6 H, Eos % (Auto) 2.4, Baso % (Auto) 0.3, Gran # 3.53, Lymph # (Auto) 3.3, [place] # (Auto) 0.6, Eos # (Auto) 0.2, Baso # (Auto) 0.02 05/29/17 07:30: Valproic Acid 89 05/29/17 07:30: Sodium 145, Potassium 4.5, Chloride 103, Carbon Dioxide 32, Anion Gap 15, BUN 15, Creatinine 1.0, Est GFR ( Amer) > 60, Est GFR (Non- Af Amer) > 60, Random Glucose 85, Calcium 10.1, Total Bilirubin 0.5, AST 28, ALT 25, Alkaline Phosphatase 76, Total Protein 7.2, Albumin 4.0, Globulin 3.2, Albumin/Globulin Ratio 1.3 05/23/17 14:27: Valproic Acid 38 L 05/22/17 00:20: Urine Opiates Screen Negative, Urine Methadone Screen Negative, Ur Barbiturates Screen Negative, Ur Phencyclidine Scrn Negative, Ur Amphetamines Screen Negative, U Benzodiazepines Scrn Negative, U Oth Cocaine Metabols Negative, U Cannabinoids Screen Positive H 05/22/17 00:20: Urine Color Yellow, Urine Appearance Clear, Urine pH 6.0, Ur Specific [place] >= 1.030, Urine Protein Trace H, Urine Glucose (UA) Negative, Urine Ketones Trace H, Urine Blood Negative, Urine Nitrate Negative, Urine Bilirubin Negative, Urine Urobilinogen 0.2, Ur Leukocyte Esterase Negative, Urine RBC 0 - 2, Urine WBC 1 - 3, Ur Epithelial Cells 0 - 2, Urine Bacteria Few 05/21/17 22:41: Alcohol, Quantitative < 10 05/21/17 22:41: Salicylates < 1 L, Acetaminophen < 10.0 L 05/21/17 22:41: Sodium 141, Potassium 4.0, Chloride 106, Carbon Dioxide 25, Anion Gap 14, BUN 17, Creatinine 0.8, Est GFR ( Amer) > 60, Est GFR (Non- Af Amer) > 60, Random Glucose 98, Calcium 10.2, Total Bilirubin 0.3, AST 32, ALT 44, Alkaline Phosphatase 101, Lactate Dehydrogenase 416, Total Creatine Kinase 63, Troponin I < 0.01, Total Protein 7.7, Albumin 4.4, Globulin 3.3, Albumin/Globulin Ratio 1.3, Lipase 70 05/21/17 22:41: PT 11.9, INR 1.04 05/21/17 22:41: WBC 11.5 H D, RBC 5.05, Hgb 16.0, Hct 45.6, MCV 90.3, MCH 31.7, MCHC 35.1, RDW 12.7, Plt Count 280, MPV 11.4 H, Gran % 63.8, Lymph % (Auto) 25.7 , [place] % (Auto) 8.9 H, Eos % (Auto) 1.4 L, Baso % (Auto) 0.2, Gran # 7.32 H, Lymph # (Auto) 3.0, [place] # (Auto) 1.0 H, Eos # (Auto) 0.2, Baso # (Auto) 0.02 Vital Signs Temp Pulse Pulse Resp BP Pulse Ox 05/29/17 07:09 98.4 F 87 20 117/80 05/28/17 16:00 89 131/90 05/28/17 07:36 97.7 F 72 20 124/86 05/27/17 07:39 98.0 F 64 20 106/55 L 05/26/17 07:37 97.3 F L 76 20 137/91 H 05/25/17 07:00 97.8 F 93 H 18 109/60 05/24/17 07:21 97.8 F 80 20 115/72 05/23/17 16:00 84 133/56 L 05/23/17 07:26 98.0 F 71 20 117/74 05/22/17 16:44 90 154/107 H 05/22/17 15:54 87 20 05/22/17 13:53 98.2 F 94 H 18 141/87 96 05/22/17 09:38 98.1 F 109 H 18 146/90 100 05/22/17 07:20 98.8 F 113 H 18 144/90 95 05/22/17 06:15 89 18 139/85 97 05/22/17 03:30 85 18 134/89 98 05/22/17 01:30 98.0 F 82 18 145/103 H 99 05/21/17 23:30 97.5 F L 81 19 133/93 H 100 05/21/17 21:00 97.2 F L 104 H 16 138/102 H 95 Consultations:: List each consultation separately and include: 1. Reason for request. 2. Findings. 3. Follow-up Consultations: Patient is relatively healthy in case of necessity will call for medical consultation, patient was seen by medical team in the emergency room. Summary of Hospital Course include:: 1. Description of specific treatment plan utilized for patients during their course of treatmen. 2. Summarize the time- course for resolution of acute symptoms and/or regressed behaviors. 3. Describe issues identified and worked on during hospitalization. 4. Describe medication utilized. 5. Describe medical problems identified and treated. 6. Reassessment of suicide risk Summary of Hospital Course: Patient is a single 32 year old male, with a history of Schizoaffective Disorder , numerous prior admissions, voluntary and involuntary, most recently hospitalized at [facility] [place] 04/28/17-05/13/17 until involuntary transfer to [facility] (pt was discharged from [facility] at the same day of the transfer with decreased dose of meds), who presents to the emergency department expressing suicidal ideation. ER records indicated that father called EMS after patient expressed that he was feeling "really bad today" and was planning on using a knife to cut and kill himself. Prior to this admission screeners from [facility] evaluated patient in the ER and did not accept patient for involuntary transfer. At the time of initial evaluation pt presented to be withdrawn and irritable, patient reported that he was discharged from [facility] within few minutes of transfer 05/29/17, patient reported that only one week of supply was given to the pt and he ran out of it, patient reports that while being on medication he was feeling better, patient was willing to participate in treatment plan, wants to be stabilized and medications, patient does not want to go to the treatment program and he wants to have one-to-one therapy, patient was advised that recommendations will be intensive outpatient program but patient does not want to go for for it. Patient denied feeling suicidal, but indicated he was "fine" however affect was constricted. during this admission pt was in good behavioral and impulse control, did not have any aggressive or violent behavior (to compare to the most recent admission 05/22-05/29 when pt was extremely agitated, was throwing a night stand, tried to cut his forearm in the unit, pt also was aggressive back then). pt was able to ask for help if needed, was in better control of his impulses. pt also was more receptive to relaxation/breathing/mindfulness exercises. pt was stabilized on the following medications: Klonopin 2 mg po TID for mood control Depakote 500 mg po BID and hs for mood control, depakote level was within theraputic range Neurontin 600 mg po TID, off label for anxiety and mood control Seroquel 400mg amhs for mood and anger control as well as paranoia pt tolerated medications well, no side effects observed or reported, AIMS 0, no EPS. Over the course of this hospitalization pt was attending groups, pt also had medication management, had therapeutic milieu. Overall pt improved significantly, pt was less depressed, has realistic future oriented plans "I want to have one to one therapy", pt still could be irritable at times but with much improvement, pt does not appear to be psychotic, or anxious, pt was socially appropriate, no behavioral issues, pts insight improved as well and soon pt deemed to be ready for discharge. At the time of the discharge pt denied been depressed, denied thoughts of harming self or others, denied psychotic symptoms, and pt does not appeared to be psychotic, denied been anxious, pt is not in imminent danger to self or others, pt was recommended to attend IOP program, but pt declined that offer, pt will be following up at [facility], information about follow up appointment, time and address provided to the pt, it is patient responsibility to follow up with outpatient clinic, PMD as well as specialists (see SW note for more detailed information). In case pt will need to obtain results of studies pending at discharge pt was provided with contact information of Psychiatric Inpatient unit [phone] as well as Medical Record Department [phone]. Nicotine patch was offered cannabis cessation recommended Counseling about smoking and alcohol cessation provided smoking cessation treatment program information was provided by the pt was provided with prescriptions for all of medications (please see medication reconciliation form) Pt was educated about safety plan in case of worsening of symptoms or in case of suicidal or homicidal ideation call 911 or go to the nearest ER, also was educated to take meds as prescribed and stay away from drugs, pt verbalized understanding. - Diagnosis (1) Impulse control disorder Status: Chronic Priority: High (2) Bipolar 1 disorder, depressed, severe Status: Chronic Priority: High - Final Diagnosis (DSM 5) Condition upon Discharge: STABLE DSM 5: r/o antisocial personality disorder Disposition: HOME/ ROUTINE Follow-up Treatment Plan: At the time of the discharge pt denied been depressed, denied thoughts of harming self or others, denied psychotic symptoms, and pt does not appeared to be psychotic, denied been anxious, pt is not in imminent danger to self or others, pt was recommended to attend IOP program, but pt declined that offer, pt will be following up at [facility], information about follow up appointment, time and address provided to the pt, it is patient responsibility to follow up with outpatient clinic, PMD as well as specialists (see SW note for more detailed information). In case pt will need to obtain results of studies pending at discharge pt was provided with contact information of Psychiatric Inpatient unit [phone] as well as Medical Record Department [phone]. Nicotine patch was offered cannabis cessation recommended Counseling about smoking and alcohol cessation provided smoking cessation treatment program information was provided by the [facility] pt was provided with prescriptions for all of medications (please see medication reconciliation form) Pt was educated about safety plan in case of worsening of symptoms or in case of suicidal or homicidal ideation call 911 or go to the nearest ER, also was educated to take meds as prescribed and stay away from drugs, pt verbalized understanding. Prescriptions/Medication Reconciliation: Clonazepam [Klonopin] 2 mg PO BID #30 tablet Divalproex [Depakote ER] 500 mg PO AMHS #45 ter Gabapentin [Neurontin] 600 mg PO QID #60 tab Nicotine 21 mg/24 hr [Nicoderm Cq] 1 patch TD DAILY #14 patch Quetiapine Fumarate [Seroquel] 400 mg PO AMHS #30 tab - Smoking Cessation Smoking Cessation Medication prescribed: Yes
== END 2017-05-29 15:25 | disposition home or self-care (01) | DRG 430 ==
LOC: ED 20:45 → ERH 05-22 12:27 → PSYC 05-22 14:08
PROVIDERS: ADMIT Psychiatry & Neurology Psychiatry; ATTEND Psychiatry & Neurology Psychiatry
DX: F31.4 Bipolar disorder, current episode depressed, severe, without psychotic features (principal); F25.9 Schizoaffective disorder, unspecified; R45.851 Suicidal ideations; E66.9 Obesity, unspecified; F60.3 Borderline personality disorder; F81.9 Developmental disorder of scholastic skills, unspecified; F12.90 Cannabis use, unspecified, uncomplicated; Z79.899 Other long term (current) drug therapy

== ENCOUNTER 2017-10-01 20:51 | Inpatient (IN) | payer MEDICAID ==
[2017-10-01 21:04] VITALS: BMI 40.1
--- NOTE | 2017-10-01 21:35 | ED PDOC ---
Arrival/HPI - General Chief Complaint: Psychiatric Evaluation Time Seen by Provider: 10/01/17 21:12 Historian: Patient - History of Present Illness Narrative History of Present Illness (Text): 10/01/17 21:32 32 year old male, whose past medical history includes anxiety, depression, and posttraumatic stress disorder presents stating he took 30 pills of Klonopine 2mg. Patient took it about 3 hours prior to arrival and denies any other ingestion. He states he took the medication to "cope". Patient states he is feeling very anxious. Admits to cutting himself 2 weeks ago. Patient denies any fever, chills, chest pain, shortness of breath, nausea, vomiting, diarrhea, urinary symptoms, back pain, neck pain, headache, dizziness, homicidal ideation , auditory/visual hallucinations, or any other complaints. PMD: Dr. Aj Gordon Time/Duration: Other (3 hours) Symptom Onset: Sudden Activities at Onset: Light Context: Home Past Medical History - Provider Review Nursing Documentation Reviewed: Yes - Infectious Disease Hx of Infectious Diseases: None - Tetanus Immunization Tetanus Immunization: Up to Date - Cardiac Hx Hypertension: Yes - Pulmonary Hx Respiratory Disorders: No - Neurological Hx Seizures: No - HEENT Hx HEENT Disorder: No - Renal Hx Renal Disorder: No - Endocrine/Metabolic Hx Endocrine Disorders: No - Hematological/Oncological Hx Blood Disorders: No - Integumentary Hx Dermatological Disorder: No - Musculoskeletal/Rheumatological Hx Musculoskeletal Disorders: No Hx Falls: No - Gastrointestinal Hx Gastrointestinal Disorders: No - Genitourinary/Gynecological Hx Sexually Transmitted Diseases: No - Psychiatric Hx Anxiety: Yes Hx Bipolar Disorder: Yes Hx Depression: Yes Hx Post Traumatic Stress Disorder: Yes Hx Substance Use: Yes - Anesthesia Hx Anesthesia: No Hx Anesthesia Reactions: No Family/Social History - Physician Review Nursing Documentation Reviewed: Yes Family/Social History: No Known Family HX Smoking Status: Current Some Days Smoker Hx Alcohol Use: No Hx Substance Use: Yes Substance used: "WEED AND [place]" Allergies/Home Meds Allergies/Adverse Reactions: Allergies No Known Allergies Allergy (Verified 09/25/17 03:20) Review of Systems - Physician Review All systems were reviewed & negative as marked: Yes - Review of Systems Constitutional: absent: Fevers, Other (Chills) Respiratory: absent: SOB Cardiovascular: absent: Chest Pain Gastrointestinal: absent: Diarrhea, Nausea, Vomiting Genitourinary Male: absent: Dysuria, Frequency, Hematuria Musculoskeletal: absent: Back Pain, Neck Pain Neurological: absent: Headache, Dizziness Psychiatric: Anxiety. absent: Other (homicidal ideation, auditory/visual hallucinations) Physical Exam Vital Signs Reviewed: Yes Vital Signs Temp Pulse Resp BP Pulse Ox 10/02/17 05:58 80 18 110/72 97 10/02/17 03:00 97.7 F 73 18 107/68 96 10/02/17 00:20 86 18 96 10/01/17 21:12 98.7 F 85 16 132/90 97 Temperature: Afebrile Blood Pressure: Normal Pulse: Regular Respiratory Rate: Normal Appearance: Positive for: Well-Appearing, Non-Toxic, Comfortable Pain Distress: None Mental Status: Positive for: Alert and Oriented X 3 - Systems Exam Head: Present: Atraumatic, Normocephalic Pupils: Present: PERRL Extroacular Muscles: Present: EOMI Conjunctiva: Present: Normal Mouth: Present: Moist Mucous Membranes Neck: Present: Normal Range of Motion Respiratory/Chest: Present: Clear to Auscultation, Good Air Exchange. No: Respiratory Distress, Accessory Muscle Use Cardiovascular: Present: Regular Rate and Rhythm, Normal S1, S2. No: Murmurs Abdomen: No: Tenderness, Distention, Peritoneal Signs Back: Present: Normal Inspection Upper Extremity: Present: Other (Left upper arm proximal aspect has multiple superficial lacerations that are healing. Mildly erythematous and warm to touch. ). No: Cyanosis, Edema Lower Extremity: Present: Normal Inspection. No: Edema Neurological: Present: GCS=15, CN II-XII Intact, Speech Normal Skin: Present: Warm, Dry, Normal Color. No: Rashes Psychiatric: Present: Alert, Oriented x 3, Normal Insight, Normal Concentration Medical Decision Making ED Course and Treatment: 10/01/17 21:34 Impression: 32 year old male presents stating he took 30 pills of Klonopine 2mg 3 hours prior to arrival to "cope". Patient also reports he's feeling very anxious. Plan: -- EKG -- Labs -- Chest X-ray -- Urinalysis -- Reassess and disposition Prior Visits: Notes and results from previous visits were reviewed. Patient was last seen in the emergency department on 05/21/17 presents complaining of Suicidal Ideation. Patient was admitted. Progress Notes: EKG shows sinus rhythm at 89 BPM with normal axis. Normal Intervals. Interpreted by me. 10/01/17 22:25 Code Sams called. Patient became agitated with violent behavior. Patient restrained for the safety of staff and himself. 10/01/17 22:51 CXR Impression: As read by me, no acute disease. 10/02/17 00:28 Patient is medical cleared. PES evaluated and request patient to be screened by [facility]. 10/02/17 04:51 PES reports the psychiatrist will evaluate patient in the Emergency room in the morning. - Lab Interpretations Lab Results: 10/01/17 23:50 10/01/17 23:50 Lab Results 10/01/17 23:50: Urine Color Yellow, Urine Appearance Clear, Urine pH 6.5, Ur Specific [place] 1.020, Urine Protein Negative, Urine Glucose (UA) Negative, Urine Ketones Negative, Urine Blood Negative, Urine Nitrate Negative, Urine Bilirubin Negative, Urine Urobilinogen 0.2, Ur Leukocyte Esterase Negative 10/01/17 23:50: Alcohol, Quantitative < 10 10/01/17 23:50: Salicylates < 1 L, Acetaminophen < 10.0 L 10/01/17 23:50: Urine Opiates Screen Negative, Urine Methadone Screen Negative, Ur Barbiturates Screen Negative, Ur Phencyclidine Scrn Negative, Ur Amphetamines Screen Negative, U Benzodiazepines Scrn Negative, U Oth Cocaine Metabols Negative, U Cannabinoids Screen Positive H 10/01/17 23:50: Sodium 141, Potassium 4.3, Chloride 102, Carbon Dioxide 29, Anion Gap 15, BUN 14, Creatinine 0.9, Est GFR ( Amer) > 60, Est GFR (Non- Af Amer) > 60, Random Glucose 90, Calcium 9.8, Total Bilirubin 0.4, AST 23, ALT 33, Alkaline Phosphatase 78, Total Protein 7.4, Albumin 4.3, Globulin 3.1, Albumin/Globulin Ratio 1.4 10/01/17 23:50: WBC 8.7, RBC 4.84, Hgb 15.5, Hct 43.6, MCV 90.1, MCH 32.0, MCHC 35.6, RDW 12.4, Plt Count 251, MPV 11.9 H, Gran % 49.1 L, Lymph % (Auto) 41.1 H , [place] % (Auto) 7.4 H, Eos % (Auto) 2.2, Baso % (Auto) 0.2, Gran # 4.27, Lymph # (Auto) 3.6 H, [place] # (Auto) 0.6, Eos # (Auto) 0.2, Baso # (Auto) 0.02 I have reviewed the lab results: Yes - RAD Interpretation Radiology Orders: 10/01/17 21:13 CHEST PORTABLE [RAD] Stat - EKG Interpretation Interpreted by ED Physician: Yes Type: 12 lead EKG - Transfer of Care Patient signed out to Dr:: Troy Other: evaluation by psychiatrist - Marelyibcecilia Statement The provider has reviewed the documentation as recorded by the Mickie Matson Provider Scribe Attestation: All medical record entries made by the Mickie were at my direction and personally dictated by me. I have reviewed the chart and agree that the record accurately reflects my personal performance of the history, physical exam, medical decision making, and the department course for this patient. I have also personally directed, reviewed, and agree with the discharge instructions and disposition. Disposition/Present on Arrival - Present on Arrival Any Indicators Present on Arrival: No History of DVT/PE: No History of Uncontrolled Diabetes: No Urinary Catheter: No History of Decub. Ulcer: No History Surgical Site Infection Following: None - Disposition Have Diagnosis and Disposition been Completed?: Yes Diagnosis: Depression Disposition Time: 07:00 Condition: UNKNOWN Forms: [employer] (Nigerian)
[2017-10-02 00:01] LABS: BASO # 0.02 K/mm3 (0.0-2.0); BASO % 0.2 % (0.0-3.0); EOS # 0.2 (0.0-0.7); EOS % 2.2 % (1.5-5.0); GRAN # 4.27 (1.4-6.5); GRAN % 49.1 % (50.0-68.0); HEMOGLOBIN 15.5 g/dL (14.0-18.0); LYMPH # 3.6 (1.2-3.4); LYMPH % 41.1 % (22.0-35.0); MEAN CELL VOLUME 90.1 fl (80.0-105.0); MEAN CORPUSCULAR HGB CONC 35.6 g/dl (31.0-37.0); MEAN PLATELET VOLUME 11.9 fl (7.0-11.0); MONO # 0.6 (0.1-0.6); MONO % 7.4 % (1.0-6.0); PH,URINE 6.5 (4.7-8.0); RBC 4.84 10^6/uL (3.5-6.1); RED CELL DISTRIBUTION WIDTH 12.4 % (11.5-14.5); URINE BILIRUBIN NEGATIVE (NEGATIVE); URINE BLOOD NEGATIVE (NEGATIVE); URINE GLUCOSE (UA) NEGATIVE (NEGATIVE); URINE LEUKOCYTE ESTERASE NEGATIVE Leu/uL (NEGATIVE); URINE PROTEIN NEGATIVE mg/dL (<30 mg/dL); URINE UROBILINOGEN 0.2 E.U./dL (<1 E.U./dL); WHITE BLOOD COUNT 8.7 10^3/ul (4.5-11.0)
[2017-10-02 00:02] LABS: URINE APPEARANCE CLEAR (CLEAR); URINE COLOR YELLOW (YELLOW)
[2017-10-02 00:13] LABS: ALB/GLOB RATIO 1.4 (1.1-1.8); ALBUMIN 4.3 g/dL (3.0-4.8); ALT/SGPT 33 U/L (7-56); AST/SGOT 23 U/L (17-59); BLOOD UREA NITROGEN 14 mg/dL (7-21); CALCIUM 9.8 mg/dL (8.4-10.5); GFR AFRICAN-AMERICAN > 60; GFR NON-AFRICAN AMERICAN > 60
[2017-10-02 00:20] LABS: ACETAMINOPHEN < 10.0 ug/ml (10.0-20.0); SALICYLATE < 1 mg/dL (2.0-20.0)
[2017-10-02 00:24] LABS: BENZODIAZEPINES, UR NEGATIVE (NEGATIVE)
[2017-10-02 00:28] LABS: BARBITURATES, UR NEGATIVE (NEGATIVE); OPIATES, UR NEGATIVE (NEGATIVE); PHENCYCLIDINE, UR NEGATIVE (NEGATIVE)
[2017-10-02 05:59] VITALS: O2SAT 97
--- NOTE | 2017-10-02 07:16 | ED PDOC ---
Physical Exam Vital Signs Temp Pulse Resp BP Pulse Ox 10/02/17 07:42 98.0 F 74 18 112/81 97 10/02/17 05:58 80 18 110/72 97 10/02/17 03:00 97.7 F 73 18 107/68 96 10/02/17 00:20 86 18 96 10/01/17 21:12 98.7 F 85 16 132/90 97 Medical Decision Making ED Course and Treatment: 10/02/17 07:00 Case endorsed to me by Dr. Riddle. Patient is 32 year old male, whose past medical history includes anxiety, depression, and posttraumatic stress disorder who presented to emergency department stating he took 30 pills of Klonopine 2mg in order to "cope". Patient is complaining of feeling very anxious and admits to self harming. Psychiatrist will evaluate patient. 10/02/17 09:15 Chest X-ray: Creator : Ramon Nguyen MD COMPARISON: 05/21/2017 FINDINGS: LUNGS: No active pulmonary disease. PLEURA: No significant pleural effusion identified, no pneumothorax apparent. CARDIOVASCULAR: Normal. OSSEOUS STRUCTURES: No significant abnormalities. VISUALIZED UPPER ABDOMEN: Normal. OTHER FINDINGS: None. IMPRESSION: No active disease. Patient evaluated by PES and will be admitted to Dr. Merlos. - Lab Interpretations Lab Results: 10/01/17 23:50 10/01/17 23:50 Lab Results 10/01/17 23:50: Urine Color Yellow, Urine Appearance Clear, Urine pH 6.5, Ur Specific [place] 1.020, Urine Protein Negative, Urine Glucose (UA) Negative, Urine Ketones Negative, Urine Blood Negative, Urine Nitrate Negative, Urine Bilirubin Negative, Urine Urobilinogen 0.2, Ur Leukocyte Esterase Negative 10/01/17 23:50: Alcohol, Quantitative < 10 10/01/17 23:50: Salicylates < 1 L, Acetaminophen < 10.0 L 10/01/17 23:50: Urine Opiates Screen Negative, Urine Methadone Screen Negative, Ur Barbiturates Screen Negative, Ur Phencyclidine Scrn Negative, Ur Amphetamines Screen Negative, U Benzodiazepines Scrn Negative, U Oth Cocaine Metabols Negative, U Cannabinoids Screen Positive H 10/01/17 23:50: Sodium 141, Potassium 4.3, Chloride 102, Carbon Dioxide 29, Anion Gap 15, BUN 14, Creatinine 0.9, Est GFR ( Amer) > 60, Est GFR (Non- Af Amer) > 60, Random Glucose 90, Calcium 9.8, Total Bilirubin 0.4, AST 23, ALT 33, Alkaline Phosphatase 78, Total Protein 7.4, Albumin 4.3, Globulin 3.1, Albumin/Globulin Ratio 1.4 10/01/17 23:50: WBC 8.7, RBC 4.84, Hgb 15.5, Hct 43.6, MCV 90.1, MCH 32.0, MCHC 35.6, RDW 12.4, Plt Count 251, MPV 11.9 H, Gran % 49.1 L, Lymph % (Auto) 41.1 H , [place] % (Auto) 7.4 H, Eos % (Auto) 2.2, Baso % (Auto) 0.2, Gran # 4.27, Lymph # (Auto) 3.6 H, [place] # (Auto) 0.6, Eos # (Auto) 0.2, Baso # (Auto) 0.02 - RAD Interpretation Radiology Orders: 10/01/17 21:13 CHEST PORTABLE [RAD] Stat - Scribe Statement The provider has reviewed the documentation as recorded by the Scribe Dinah Vo Provider Scribe Attestation: All medical record entries made by the Scribe were at my direction and personally dictated by me. I have reviewed the chart and agree that the record accurately reflects my personal performance of the history, physical exam, medical decision making, and the department course for this patient. I have also personally directed, reviewed, and agree with the discharge instructions and disposition. Disposition/Present on Arrival - Present on Arrival Any Indicators Present on Arrival: No History of DVT/PE: No History of Uncontrolled Diabetes: No Urinary Catheter: No History of Decub. Ulcer: No History Surgical Site Infection Following: None - Disposition Have Diagnosis and Disposition been Completed?: Yes Diagnosis: Depression Disposition: HOSPITALIZED Disposition Time: 11:39 Patient Problems: Current Active Problems Problem Status Onset Depression Acute Condition: STABLE
--- NOTE | 2017-10-02 08:56 | RAD ---
Date of service: 10/01/2017 HISTORY: r/o infiltrate COMPARISON: 05/21/2017 FINDINGS: LUNGS: No active pulmonary disease. PLEURA: No significant pleural effusion identified, no pneumothorax apparent. CARDIOVASCULAR: Normal. OSSEOUS STRUCTURES: No significant abnormalities. VISUALIZED UPPER ABDOMEN: Normal. OTHER FINDINGS: None. IMPRESSION: No active disease.
[2017-10-02] MEDS ORDERED: DiphenhydrAMINE 50 mg/ml Inj IM PRN ×2 (13:33→13:41)
--- NOTE | 2017-10-02 17:39 | CARD ---
APPROVED REPORT Date of service: 10/01/2017 EKG Measurement Heart [id number] <Conclusion> Normal sinus rhythm Normal ECG
--- NOTE | 2017-10-02 18:15 | PCM.BM ---
<Lazara Huerta - Last Filed: 10/02/17 18:12> Treatment Plan Problems - Problems identified on initial assessmt high risk:injury Date Initiated: 10/02/17 Time Initiated: 18:14 Assessment reference: NA Status: Active agitated/agressive Date Initiated: 10/02/17 Time Initiated: 18:15 Assessment reference: AT, NA Status: Active alterd thought process Date Initiated: 10/02/17 Time Initiated: 18:15 Assessment reference: NA Status: Active ineffective impulsr control Date Initiated: 10/02/17 Time Initiated: 18:17 Assessment reference: NA Status: Active alterd sleep pattern Date Initiated: 10/02/17 Time Initiated: 18:18 Assessment reference: NA Status: Active medication non complaince Date Initiated: 10/02/17 Time Initiated: 18:19 Assessment reference: NA Status: Active Treatment assets and liabiliti Patient Assests: cooperative, ADL independent, negotiates basic needs, cognitively intact Patient Liabilities: relationship conflicts, substance abuse - Milieu Protocol Maintain good personal hygiene: every shift Encourage regular showers, every shift Remind patient to perform daily oral care, every shift Assist patient to perform ADL's Conduct patient checks and document Observation sheet: Q15 minutes Maintain personal safety: every shift Educate patient to report safety concerns to staff, every shift Monitor environment for contraband/sharps Medication safety: Monitor for expected outcome, potential side effects: every shift, Assess barriers to learning: every shift, Assess readiness for medication education: every shift Family Contact - Goals for Treatment Patient goals for treatment: " i want to go to a drug program' Discharge/Continuing Care - Education Needs Education Needs: Patient Medication, Patient Diagnosis/Disease Process, Patient Coping Skills, Patient Placement options, Patient Community resources, Patient Personal Hygiene/Grooming - Discharge Discharge Criteria: Tolerates medication w/o severe side effects, Free of Suicidal thoughts, Free of Homicidal thoughts, Free of paranoid thoughts, Free of agitation, Normal sleep pattern, Ability to care for self <Jaylene Leggett - Last Filed: 10/03/17 10:16> - Diagnosis (1) Depression Status: Acute Interventions: Klonopin 1 mg PO TID for anxiety and mood control Depakote 500 mg PO AMHS for mood control Neurontin 400 mg PO QID for anxiety and mood control Seroquel 100 mg PO BID and 150 mg po HS for mood and impulse control Lexapro 10 mg po HS for depression and anxiety 10/03/17 10:17 (2) Bipolar 1 disorder Status: Acute Interventions: Klonopin 1 mg PO TID for anxiety and mood control Depakote 500 mg PO AMHS for mood control Neurontin 400 mg PO QID for anxiety and mood control Seroquel 100 mg PO BID and 150 mg po HS for mood and impulse control Lexapro 10 mg po HS for depression and anxiety 10/03/17 10:17 <Blank Barnes Y - Last Filed: 10/05/17 14:19> Family Contact Family involvement: Famliy/SO not involved
[2017-10-02] MEDS: Divalproex 500 mg DR(BID formulation) PO SCH (18:38)
[2017-10-03] MEDS: Divalproex 500 mg DR(BID formulation) PO SCH ×2 (08:22→16:44)
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
[2017-10-04] MEDS: Divalproex 500 mg DR(BID formulation) PO SCH ×2 (08:26→15:24)
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
[2017-10-05] MEDS: Divalproex 500 mg DR(BID formulation) PO SCH ×2 (08:51→16:16)
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
[2017-10-06] MEDS: Divalproex 500 mg DR(BID formulation) PO SCH ×2 (08:11→16:08)
--- NOTE | 2017-10-06 15:52 | PCM.PYCHPN ---
Psychiatric Progress Note - Psychiatric Progress Note Patient seen today, length of contact: 30min Patient Chief Complaint: "everything annoys me" Problems Identified/Issues Discussed: Suicide/ homicide prevention, past psychiatric h/o, current psychiatric symptoms , medical problems, risk/benefits and alternatives of medications, medications compliance, coping strategies, substance abuse h/o, relapse prevention, importance of follow up with psychiatrist and therapist, discharge plan. Medical Problems: pt reported to be healthy Diagnostic Results: 10/01/17 23:50 10/01/17 23:50 Lab Results 10/03/17 06:30: Valproic Acid 30 L 10/01/17 23:50: Urine Color Yellow, Urine Appearance Clear, Urine pH 6.5, Ur Specific [place] 1.020, Urine Protein Negative, Urine Glucose (UA) Negative, Urine Ketones Negative, Urine Blood Negative, Urine Nitrate Negative, Urine Bilirubin Negative, Urine Urobilinogen 0.2, Ur Leukocyte Esterase Negative 10/01/17 23:50: Alcohol, Quantitative < 10 10/01/17 23:50: Salicylates < 1 L, Acetaminophen < 10.0 L 10/01/17 23:50: Urine Opiates Screen Negative, Urine Methadone Screen Negative, Ur Barbiturates Screen Negative, Ur Phencyclidine Scrn Negative, Ur Amphetamines Screen Negative, U Benzodiazepines Scrn Negative, U Oth Cocaine Metabols Negative, U Cannabinoids Screen Positive H 10/01/17 23:50: Sodium 141, Potassium 4.3, Chloride 102, Carbon Dioxide 29, Anion Gap 15, BUN 14, Creatinine 0.9, Est GFR ( Amer) > 60, Est GFR (Non- Af Amer) > 60, Random Glucose 90, Calcium 9.8, Total Bilirubin 0.4, AST 23, ALT 33, Alkaline Phosphatase 78, Total Protein 7.4, Albumin 4.3, Globulin 3.1, Albumin/Globulin Ratio 1.4 10/01/17 23:50: WBC 8.7, RBC 4.84, Hgb 15.5, Hct 43.6, MCV 90.1, MCH 32.0, MCHC 35.6, RDW 12.4, Plt Count 251, MPV 11.9 H, Gran % 49.1 L, Lymph % (Auto) 41.1 H , [place] % (Auto) 7.4 H, Eos % (Auto) 2.2, Baso % (Auto) 0.2, Gran # 4.27, Lymph # (Auto) 3.6 H, [place] # (Auto) 0.6, Eos # (Auto) 0.2, Baso # (Auto) 0.02 Vital Signs Temp Pulse Pulse Resp BP Pulse Ox 10/05/17 06:48 98.0 F 76 18 124/74 10/04/17 16:40 78 17 139/94 H 10/04/17 06:35 97.8 F 73 20 140/98 H 10/03/17 15:00 73 20 137/86 10/03/17 07:11 98 F 72 20 108/72 10/02/17 15:14 80 22 10/02/17 12:27 97.8 F 76 17 120/66 97 10/02/17 12:09 97.8 F 76 17 120/66 97 10/02/17 07:42 98.0 F 74 18 112/81 97 10/02/17 05:58 80 18 110/72 97 10/02/17 03:00 97.7 F 73 18 107/68 96 10/02/17 00:20 86 18 96 10/01/17 21:12 98.7 F 85 16 132/90 97 Temp Pulse Resp BP Pulse Ox 97.3 F L 79 16 120/78 97 10/06/17 06:45 10/06/17 06:45 10/06/17 06:45 10/06/17 06:45 10/02/17 12:27 DSM 5 Symptoms Update: Pt is a single 32-year-old white male with history of multiple different diagnosis including Schizoaffective Disorder, Impulse Control Disorder, Bipolar I Disorder, Antisocial Personality Disorder , r/o PTSD, r/o sedative, hypnotic or anxiolytic use disorder, numerous hospitalizations both voluntary and involuntary, most recently discharged AMA from [facility] a week ago (), variable compliance with medications and follow up who presented to emergency department stating he took 30 pills of Klonopin 2mg in order to "cope ". Patient also has a history of cutting behaviors, most recently 2 weeks ago. pt was seen and examined in his room, acceptable personal hygiene, superficially cooperative. patient presented to be irritable, annoyed, pt reported that he submitted 48hr notice because "everything is annoying". pt is depressed, self isolating, not participating in unit activities. per nursing report, no agitation, no aggression, med compliant. Patient tolerates medications well, no side effects observed or reported, aims 0 , no EPS. Impression: multiple different diagnosis including Schizoaffective Disorder Impulse Control Disorder Bipolar I Disorder Antisocial Personality Disorder r/o PTSD r/o sedative hypnotic or anxiolytic use disorder Medication Change: Yes (Seroquel increased) Medical Record Reviewed: Yes Consults ordered or reviewed: patient was seen by medical team and the emergency room, patient does not have any medical complaints, we'll consider for consult if patient meets criteria Mental Status Examination - Cognitive Function Orientation: Person, Place, Situation Attention: WNL Concentration: Poor Association: Loose Fund of Knowledge: Poor - Mood Mood: Depressed - Affect Affect: Constricted - Speech Speech: Appropriate - Formal Thought Process Formal Thought Process: No Impairment - Suicidal Ideation Suicidal Ideation: No - Homicidal Ideation Homicidal Ideation: No Goal/Treatment Plan - Goal/Treatment Plan Need for Continued Stay: Remain at risks for inpatient hospitalization, Severe depression anxiety, Discharge may exacerbated symptoms, Severe functional impairment Progress Toward Problem(s) and Goals/Treatment Plan: group, milieu and supportive tx Klonopin 1 mg PO TID for anxiety and mood control Depakote 500 mg PO AMHS for mood control Neurontin 400 mg PO QID for anxiety and mood control Seroquel 300mg po at hs and 300 mg po HS for mood and impulse control Lexapro 10 mg po HS for depression and anxiety SW consultation for discharge plan and social issues Family involvement Follow up on labs Will monitor closely Pt was educated about risk/benefits and alternatives of medications, coping strategies (safety plan, suicide prevention), relapse prevention, importance of follow up with psychiatrist and therapist, stay away from drugs/alcohol/smoking Estimated Date of D/C: 10/09/17
[2017-10-06] MEDS ORDERED: Magnesium Hydroxide Susp 30 ml UD PO PRN (18:33)
[2017-10-07] MEDS: Divalproex 500 mg DR(BID formulation) PO SCH ×2 (08:06→15:43)
--- NOTE | 2017-10-07 13:10 | PCM.PYCHPN ---
Psychiatric Progress Note - Psychiatric Progress Note Patient seen today, length of contact: 30min Patient Chief Complaint: "I am alright" Problems Identified/Issues Discussed: Suicide/ homicide prevention, past psychiatric h/o, current psychiatric symptoms , medical problems, risk/benefits and alternatives of medications, medications compliance, coping strategies, substance abuse h/o, relapse prevention, importance of follow up with psychiatrist and therapist, discharge plan. Medical Problems: pt reported to be healthy Diagnostic Results: 10/01/17 23:50 10/01/17 23:50 Lab Results 10/03/17 06:30: Valproic Acid 30 L 10/01/17 23:50: Urine Color Yellow, Urine Appearance Clear, Urine pH 6.5, Ur Specific [place] 1.020, Urine Protein Negative, Urine Glucose (UA) Negative, Urine Ketones Negative, Urine Blood Negative, Urine Nitrate Negative, Urine Bilirubin Negative, Urine Urobilinogen 0.2, Ur Leukocyte Esterase Negative 10/01/17 23:50: Alcohol, Quantitative < 10 10/01/17 23:50: Salicylates < 1 L, Acetaminophen < 10.0 L 10/01/17 23:50: Urine Opiates Screen Negative, Urine Methadone Screen Negative, Ur Barbiturates Screen Negative, Ur Phencyclidine Scrn Negative, Ur Amphetamines Screen Negative, U Benzodiazepines Scrn Negative, U Oth Cocaine Metabols Negative, U Cannabinoids Screen Positive H 10/01/17 23:50: Sodium 141, Potassium 4.3, Chloride 102, Carbon Dioxide 29, Anion Gap 15, BUN 14, Creatinine 0.9, Est GFR ( Amer) > 60, Est GFR (Non- Af Amer) > 60, Random Glucose 90, Calcium 9.8, Total Bilirubin 0.4, AST 23, ALT 33, Alkaline Phosphatase 78, Total Protein 7.4, Albumin 4.3, Globulin 3.1, Albumin/Globulin Ratio 1.4 10/01/17 23:50: WBC 8.7, RBC 4.84, Hgb 15.5, Hct 43.6, MCV 90.1, MCH 32.0, MCHC 35.6, RDW 12.4, Plt Count 251, MPV 11.9 H, Gran % 49.1 L, Lymph % (Auto) 41.1 H , [place] % (Auto) 7.4 H, Eos % (Auto) 2.2, Baso % (Auto) 0.2, Gran # 4.27, Lymph # (Auto) 3.6 H, [place] # (Auto) 0.6, Eos # (Auto) 0.2, Baso # (Auto) 0.02 Vital Signs Temp Pulse Pulse Resp BP Pulse Ox 10/05/17 06:48 98.0 F 76 18 124/74 10/04/17 16:40 78 17 139/94 H 10/04/17 06:35 97.8 F 73 20 140/98 H 10/03/17 15:00 73 20 137/86 10/03/17 07:11 98 F 72 20 108/72 10/02/17 15:14 80 22 10/02/17 12:27 97.8 F 76 17 120/66 97 10/02/17 12:09 97.8 F 76 17 120/66 97 10/02/17 07:42 98.0 F 74 18 112/81 97 10/02/17 05:58 80 18 110/72 97 10/02/17 03:00 97.7 F 73 18 107/68 96 10/02/17 00:20 86 18 96 10/01/17 21:12 98.7 F 85 16 132/90 97 Temp Pulse Resp BP Pulse Ox 97.3 F L 79 16 120/78 97 10/06/17 06:45 10/06/17 06:45 10/06/17 06:45 10/06/17 06:45 10/02/17 12:27 Temp Pulse Resp BP Pulse Ox 97.8 F 73 18 143/98 H 97 10/07/17 07:01 10/07/17 07:01 10/07/17 07:01 10/07/17 07:01 10/02/17 12:27 DSM 5 Symptoms Update: Pt is a single 32-year-old white male with history of multiple different diagnosis including Schizoaffective Disorder, Impulse Control Disorder, Bipolar I Disorder, Antisocial Personality Disorder , r/o PTSD, r/o sedative, hypnotic or anxiolytic use disorder, numerous hospitalizations both voluntary and involuntary, most recently discharged AMA from [facility] a week ago (), variable compliance with medications and follow up who presented to emergency department stating he took 30 pills of Klonopin 2mg in order to "cope ". Patient also has a history of cutting behaviors, most recently 2 weeks ago. pt was seen and examined at the treatment team meeting, acceptable personal hygiene, superficially cooperative. pt is irritable, but not agitated, pt reported feeling "alright", pt wants to go to inpatient rehab, SW faxed over info to [facility]. pt will be willing to be weaned off Klonopin and neurontin in case he will be accepted. pt rescinded 48 hr notice. pt is depressed, self isolating, not participating in unit activities. per nursing report, no agitation, no aggression, med compliant. Patient tolerates medications well, no side effects observed or reported, aims 0 , no EPS. Impression: multiple different diagnosis including Schizoaffective Disorder Impulse Control Disorder Bipolar I Disorder Antisocial Personality Disorder r/o PTSD r/o sedative hypnotic or anxiolytic use disorder Medication Change: Yes (lexapro increased) Medical Record Reviewed: Yes Consults ordered or reviewed: patient was seen by medical team and the emergency room, patient does not have any medical complaints, we'll consider for consult if patient meets criteria Mental Status Examination - Cognitive Function Orientation: Person, Place, Situation Attention: WNL Concentration: Poor Association: Loose Fund of Knowledge: Poor - Mood Mood: Depressed - Affect Affect: Constricted - Speech Speech: Appropriate - Formal Thought Process Formal Thought Process: No Impairment - Suicidal Ideation Suicidal Ideation: No - Homicidal Ideation Homicidal Ideation: No Goal/Treatment Plan - Goal/Treatment Plan Need for Continued Stay: Remain at risks for inpatient hospitalization, Severe depression anxiety, Discharge may exacerbated symptoms, Severe functional impairment Progress Toward Problem(s) and Goals/Treatment Plan: group, milieu and supportive tx Klonopin 1 mg PO TID for anxiety and mood control Depakote 500 mg PO AMHS for mood control Neurontin 400 mg PO QID for anxiety and mood control Seroquel 300mg po at hs and 300 mg po HS for mood and impulse control Lexapro 10 mg po HS for depression and anxiety SW consultation for discharge plan and social issues Family involvement Follow up on labs Will monitor closely Pt was educated about risk/benefits and alternatives of medications, coping strategies (safety plan, suicide prevention), relapse prevention, importance of follow up with psychiatrist and therapist, stay away from drugs/alcohol/smoking Estimated Date of D/C: 10/09/17
[2017-10-08 06:54] VITALS: RESP 20; TEMP 97.5
[2017-10-08] MEDS: Divalproex 500 mg DR(BID formulation) PO SCH ×2 (08:02→17:36)
--- NOTE | 2017-10-08 15:44 | PCM.PYCHPN ---
Psychiatric Progress Note - Psychiatric Progress Note Patient seen today, length of contact: 30min Patient Chief Complaint: "I am alright" Problems Identified/Issues Discussed: Suicide/ homicide prevention, past psychiatric h/o, current psychiatric symptoms , medical problems, risk/benefits and alternatives of medications, medications compliance, coping strategies, substance abuse h/o, relapse prevention, importance of follow up with psychiatrist and therapist, discharge plan. Medical Problems: pt reported to be healthy Diagnostic Results: 10/01/17 23:50 10/01/17 23:50 Lab Results 10/03/17 06:30: Valproic Acid 30 L 10/01/17 23:50: Urine Color Yellow, Urine Appearance Clear, Urine pH 6.5, Ur Specific [place] 1.020, Urine Protein Negative, Urine Glucose (UA) Negative, Urine Ketones Negative, Urine Blood Negative, Urine Nitrate Negative, Urine Bilirubin Negative, Urine Urobilinogen 0.2, Ur Leukocyte Esterase Negative 10/01/17 23:50: Alcohol, Quantitative < 10 10/01/17 23:50: Salicylates < 1 L, Acetaminophen < 10.0 L 10/01/17 23:50: Urine Opiates Screen Negative, Urine Methadone Screen Negative, Ur Barbiturates Screen Negative, Ur Phencyclidine Scrn Negative, Ur Amphetamines Screen Negative, U Benzodiazepines Scrn Negative, U Oth Cocaine Metabols Negative, U Cannabinoids Screen Positive H 10/01/17 23:50: Sodium 141, Potassium 4.3, Chloride 102, Carbon Dioxide 29, Anion Gap 15, BUN 14, Creatinine 0.9, Est GFR ( Amer) > 60, Est GFR (Non- Af Amer) > 60, Random Glucose 90, Calcium 9.8, Total Bilirubin 0.4, AST 23, ALT 33, Alkaline Phosphatase 78, Total Protein 7.4, Albumin 4.3, Globulin 3.1, Albumin/Globulin Ratio 1.4 10/01/17 23:50: WBC 8.7, RBC 4.84, Hgb 15.5, Hct 43.6, MCV 90.1, MCH 32.0, MCHC 35.6, RDW 12.4, Plt Count 251, MPV 11.9 H, Gran % 49.1 L, Lymph % (Auto) 41.1 H , [place] % (Auto) 7.4 H, Eos % (Auto) 2.2, Baso % (Auto) 0.2, Gran # 4.27, Lymph # (Auto) 3.6 H, [place] # (Auto) 0.6, Eos # (Auto) 0.2, Baso # (Auto) 0.02 Vital Signs Temp Pulse Pulse Resp BP Pulse Ox 10/05/17 06:48 98.0 F 76 18 124/74 10/04/17 16:40 78 17 139/94 H 10/04/17 06:35 97.8 F 73 20 140/98 H 10/03/17 15:00 73 20 137/86 10/03/17 07:11 98 F 72 20 108/72 10/02/17 15:14 80 22 10/02/17 12:27 97.8 F 76 17 120/66 97 10/02/17 12:09 97.8 F 76 17 120/66 97 10/02/17 07:42 98.0 F 74 18 112/81 97 10/02/17 05:58 80 18 110/72 97 10/02/17 03:00 97.7 F 73 18 107/68 96 10/02/17 00:20 86 18 96 10/01/17 21:12 98.7 F 85 16 132/90 97 Temp Pulse Resp BP Pulse Ox 97.3 F L 79 16 120/78 97 10/06/17 06:45 10/06/17 06:45 10/06/17 06:45 10/06/17 06:45 10/02/17 12:27 Temp Pulse Resp BP Pulse Ox 97.8 F 73 18 143/98 H 97 10/07/17 07:01 10/07/17 07:01 10/07/17 07:01 10/07/17 07:01 10/02/17 12:27 DSM 5 Symptoms Update: Pt is a single 32-year-old white male with history of multiple different diagnosis including Schizoaffective Disorder, Impulse Control Disorder, Bipolar I Disorder, Antisocial Personality Disorder , r/o PTSD, r/o sedative, hypnotic or anxiolytic use disorder, numerous hospitalizations both voluntary and involuntary, most recently discharged AMA from [facility] a week ago (), variable compliance with medications and follow up who presented to emergency department stating he took 30 pills of Klonopin 2mg in order to "cope ". Patient also has a history of cutting behaviors, most recently 2 weeks ago. pt was seen and examined The nursing station, as per staff patient was agitated earlier threw a chair, was calling recreational therapist maintains, bby mouth medications given, patient was able to calm down, no need IM. acceptable personal hygiene, superficially cooperative. patient reported that he likes medications right now and it is "helping me a lot ". Patient does not have any remorse over his behavior. patient is very passive in regards of inpatient rehabilitation phone calls. Patient submitted another 48 hour notice, patient denied any thoughts of harming himself or others, will consider to screen patient but at present moment patient does not meet the criteria. pt is less depressed, more visible in the unit, but more irritable Patient tolerates medications well, no side effects observed or reported, aims 0 , no EPS. Impression: multiple different diagnosis including Schizoaffective Disorder Impulse Control Disorder Bipolar I Disorder Antisocial Personality Disorder r/o PTSD r/o sedative hypnotic or anxiolytic use disorder Medication Change: Yes (lexapro increased) Medical Record Reviewed: Yes Mental Status Examination - Cognitive Function Orientation: Person, Place, Situation Attention: WNL Concentration: Poor Association: Loose Fund of Knowledge: Poor - Mood Mood: Depressed - Affect Affect: Constricted - Speech Speech: Appropriate - Formal Thought Process Formal Thought Process: No Impairment - Suicidal Ideation Suicidal Ideation: No - Homicidal Ideation Homicidal Ideation: No Goal/Treatment Plan - Goal/Treatment Plan Need for Continued Stay: Remain at risks for inpatient hospitalization, Severe depression anxiety, Discharge may exacerbated symptoms, Severe functional impairment Progress Toward Problem(s) and Goals/Treatment Plan: group, milieu and supportive tx Klonopin 1 mg PO TID for anxiety and mood control Depakote will be increased to 500 mg PO BIDHS for mood control Neurontin 400 mg PO QID for anxiety and mood control Seroquel 300mg po at hs and 400 mg po HS for mood and impulse control Lexapro 20 mg po HS for depression and anxiety SW consultation for discharge plan and social issues Family involvement Follow up on labs Will monitor closely Pt was educated about risk/benefits and alternatives of medications, coping strategies (safety plan, suicide prevention), relapse prevention, importance of follow up with psychiatrist and therapist, stay away from drugs/alcohol/smoking Estimated Date of D/C: 10/09/17
[2017-10-08 16:36] VITALS: PULSE 76
[2017-10-08] MEDS ORDERED: Divalproex 500 mg DR(BID formulation) PO SCH (22:00)
[2017-10-09 06:47] VITALS: BP 134/98
[2017-10-09] MEDS: Divalproex 500 mg DR(BID formulation) PO SCH (07:52)
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
== END 2017-10-09 15:17 | disposition home or self-care (01) | DRG 430 ==
LOC: ED 20:51 → ERH 10-02 11:39 → PSYC 10-02 12:47
PROVIDERS: ADMIT Psychiatry & Neurology Psychiatry; ATTEND Psychiatry & Neurology Psychiatry
DX: F31.4 Bipolar disorder, current episode depressed, severe, without psychotic features (principal); F13.10 Sedative, hypnotic or anxiolytic abuse, uncomplicated; F25.9 Schizoaffective disorder, unspecified; F43.10 Post-traumatic stress disorder, unspecified; F60.2 Antisocial personality disorder; F63.9 Impulse disorder, unspecified; F17.210 Nicotine dependence, cigarettes, uncomplicated; I10 Essential (primary) hypertension; Z79.899 Other long term (current) drug therapy; Z91.19 Patient's noncompliance with other medical treatment and regimen; Z91.5 Personal history of self-harm

== ENCOUNTER 2018-01-21 23:21 | Emergency (ER) | payer MEDICAID ==
[2018-01-21 23:35] VITALS: BMI 42.5
--- NOTE | 2018-01-21 23:38 | ED PDOC ---
Arrival/HPI - General Historian: Patient - History of Present Illness Narrative History of Present Illness (Text): 01/21/18 23:37 32-year-old male with history of depression and anxiety, complaining of feeling depressed with suicidal thoughts, states that he attempted to cut his left forearm yesterday. Otherwise patient denies any fever, headache, dizziness, auditory or visual hallucinations, homicidal ideation, any other trauma or injury. Patient has no additional complaints. <Caprice Holden PA-C - Last Filed: 01/22/18 01:49> <Ajit Jimenez - Last Filed: 01/22/18 02:18> - General Time Seen by Provider: 01/21/18 23:22 Past Medical History - Infectious Disease Hx of Infectious Diseases: None - Tetanus Immunization Tetanus Immunization: Up to Date - Cardiac Hx Hypertension: Yes - Pulmonary Hx Respiratory Disorders: No - Neurological Hx Seizures: No - HEENT Hx HEENT Disorder: No - Renal Hx Renal Disorder: No - Endocrine/Metabolic Hx Endocrine Disorders: No - Hematological/Oncological Hx Blood Disorders: No - Integumentary Hx Dermatological Disorder: No - Musculoskeletal/Rheumatological Hx Musculoskeletal Disorders: No Hx Falls: No - Gastrointestinal Hx Gastrointestinal Disorders: No - Genitourinary/Gynecological Hx Sexually Transmitted Diseases: No - Psychiatric Hx Anxiety: Yes Hx Bipolar Disorder: Yes Hx Depression: Yes Hx Post Traumatic Stress Disorder: Yes Hx Substance Use: Yes - Anesthesia Hx Anesthesia: No Hx Anesthesia Reactions: No <Caprice Holden PA-C - Last Filed: 01/22/18 01:49> Family/Social History Family/Social History: No Known Family HX Smoking Status: Current Some Days Smoker Hx Alcohol Use: Yes Hx Substance Use: Yes Substance used: "WEED AND [place]" <Caprice Holden PA-C - Last Filed: 01/22/18 01:49> Allergies/Home Meds <Caprice Holden PA-C - Last Filed: 01/22/18 01:49> <Ajit Jimenez - Last Filed: 01/22/18 02:18> Allergies/Adverse Reactions: Allergies No Known Allergies Allergy (Verified 10/18/17 13:20) Review of Systems - Review of Systems Constitutional: absent: Fatigue, Fevers Respiratory: absent: SOB, Cough Cardiovascular: absent: Chest Pain, Palpitations Gastrointestinal: absent: Abdominal Pain, Diarrhea, Vomiting Genitourinary Male: absent: Dysuria, Frequency Musculoskeletal: absent: Arthralgias, Back Pain, Neck Pain Skin: absent: Rash, Pruritis, Skin Lesions Neurological: absent: Headache, Dizziness Psychiatric: Anxiety, Depression, Suicidal Ideation <Caprice Holden PA-C - Last Filed: 01/22/18 01:49> Physical Exam Temperature: Afebrile Blood Pressure: Normal Pulse: Regular Respiratory Rate: Normal Appearance: Positive for: Well-Appearing, Non-Toxic, Comfortable Pain Distress: None Mental Status: Positive for: Alert and Oriented X 3 - Systems Exam Head: Present: Atraumatic, Normocephalic Pupils: Present: PERRL Extroacular Muscles: Present: EOMI Conjunctiva: Present: Normal Mouth: Present: Moist Mucous Membranes Neck: Present: Normal Range of Motion Respiratory/Chest: Present: Clear to Auscultation, Good Air Exchange. No: Respiratory Distress, Accessory Muscle Use Cardiovascular: Present: Regular Rate and Rhythm, Normal S1, S2. No: Murmurs Abdomen: No: Tenderness, Distention, Peritoneal Signs Back: Present: Normal Inspection Upper Extremity: Present: Normal Inspection. No: Cyanosis, Edema Lower Extremity: Present: Normal Inspection. No: Edema Neurological: Present: GCS=15, CN II-XII Intact, Speech Normal Skin: Present: Warm, Dry, Normal Color. No: Rashes Psychiatric: Present: Alert, Oriented x 3, Depressed Mood, Other (+flat affect) <Caprice Holden PA-C - Last Filed: 01/22/18 01:49> Vital Signs Temp Pulse Resp BP Pulse Ox 01/21/18 23:42 98.4 F 105 H 20 159/100 H 97 <Ajit Jimneez - Last Filed: 01/22/18 02:18> Medical Decision Making ED Course and Treatment: 01/21/18 23:38 Plan: -- Labs -- Urinalysis -- EKG -- CXR -- Reassess and disposition CXR : NAD. EKG : ST at 102 bpm, no acute ST changes. Labs reviewed and wnl. On re-evaluation, patient is calm and cooperative, sitting comfortably in bed in no acute distress. Was seen and evaluated by PES. - RAD Interpretation Radiology Orders: 01/21/18 23:35 CHEST PORTABLE [RAD] Stat <Navin ROMERO,Caprice Smith - Last Filed: 01/22/18 01:49> ED Course and Treatment: 01/22/18 02:15 PES worker Maureen states patient does not meet eligibility criteria for inpatient psychiatric admission at this time and is cleared psychiatrically. Patient is medically cleared. - Lab Interpretations Lab Results: 01/21/18 00:03 01/21/18 00:03 Lab Results 01/22/18 01:31: Urine Opiates Screen Negative, Urine Methadone Screen Negative, Ur Barbiturates Screen Negative, Ur Phencyclidine Scrn Negative, Ur Amphetamines Screen Negative, U Benzodiazepines Scrn Negative, U Oth Cocaine Metabols Negative, U Cannabinoids Screen Positive H 01/22/18 01:31: Urine Color Yellow, Urine Appearance Clear, Urine pH 6.0, Ur Specific Mondamin >= 1.030, Urine Protein Negative, Urine Glucose (UA) Negative, Urine Ketones Negative, Urine Blood Negative, Urine Nitrate Negative, Urine Bilirubin Negative, Urine Urobilinogen 0.2, Ur Leukocyte Esterase Negative 01/21/18 00:03: Alcohol, Quantitative < 10 01/21/18 00:03: Sodium 138, Potassium 3.8, Chloride 102, Carbon Dioxide 24, Anion Gap 17, BUN 17, Creatinine 0.7 L, Est GFR ( Amer) > 60, Est GFR (Non-Af Amer) > 60, Random Glucose 97, Calcium 9.8, Magnesium 2.0, Total Bilirubin 0.4, AST 29, ALT 42, Alkaline Phosphatase 99, Total Protein 8.4 H, Albumin 4.8, Globulin 3.7, Albumin/Globulin Ratio 1.3 01/21/18 00:03: WBC 10.6, RBC 5.34, Hgb 17.0, Hct 47.4, MCV 88.8, MCH 31.8, MCHC 35.9, RDW 12.4, Plt Count 291, MPV 11.8 H, Gran % 56.0, Lymph % (Auto) 32.3, [place] % (Auto) 9.7 H, Eos % (Auto) 1.6, Baso % (Auto) 0.4, Gran # 5.91, Lymph # (Auto) 3.4, [place] # (Auto) 1.0 H, Eos # (Auto) 0.2, Baso # (Auto) 0.04 - RAD Interpretation Radiology Orders: 01/21/18 23:35 CHEST PORTABLE [RAD] Stat <Ajit Jimenez - Last Filed: 01/22/18 02:18> - PA / TEXTILE PIN WORKER / Resident Statement MD/DO has reviewed & agrees with the documentation as recorded. <Caprice Holden PA-C - Last Filed: 01/22/18 01:49> Disposition/Present on Arrival - Present on Arrival Any Indicators Present on Arrival: No History of DVT/PE: No History of Uncontrolled Diabetes: No Urinary Catheter: No History Surgical Site Infection Following: None - Disposition Have Diagnosis and Disposition been Completed?: Yes <Caprice Holden PA-C - Last Filed: 01/22/18 01:49> - Disposition Disposition Time: 02:16 Patient Plan: Discharge <Ajit Jimenez - Last Filed: 01/22/18 02:18> - Disposition Diagnosis: Depression Disposition: HOME/ ROUTINE Patient Problems: Current Active Problems Problem Status Onset Depression Acute Condition: STABLE Discharge Instructions (ExitCare): Depression, Adult (DC) Print Language: [place] Referrals: Jayleen Frost MD [Primary Care Provider] - Follow up with primary [facility] [Outside] - Follow up with primary Forms: [employer] (Indonesian)
[2018-01-21 23:47] VITALS: RESP 20; TEMP 98.4
[2018-01-22 00:22] LABS: BASO # 0.04 K/mm3 (0.0-2.0); BASO % 0.4 % (0.0-3.0); EOS # 0.2 (0.0-0.7); EOS % 1.6 % (1.5-5.0); GRAN # 5.91 (1.4-6.5); LYMPH # 3.4 (1.2-3.4); LYMPH % 32.3 % (22.0-35.0); MEAN CELL VOLUME 88.8 fl (80.0-105.0); MEAN CORPUSCULAR HEMOGLOBIN 31.8 pg (25.0-35.0); MEAN CORPUSCULAR HGB CONC 35.9 g/dl (31.0-37.0); MEAN PLATELET VOLUME 11.8 fl (7.0-11.0); MONO % 9.7 % (1.0-6.0); RBC 5.34 10^6/uL (3.5-6.1); RED CELL DISTRIBUTION WIDTH 12.4 % (11.5-14.5); WHITE BLOOD COUNT 10.6 10^3/uL (4.5-11.0)
[2018-01-22 00:27] LABS: ALB/GLOB RATIO 1.3 (1.1-1.8); ALBUMIN 4.8 g/dL (3.0-4.8); ALT/SGPT 42 U/L (7-56); AST/SGOT 29 U/L (17-59); BLOOD UREA NITROGEN 17 mg/dL (7-21); CALCIUM 9.8 mg/dL (8.4-10.5); GFR NON-AFRICAN AMERICAN > 60
[2018-01-22 01:36] LABS: URINE BILIRUBIN NEGATIVE (NEGATIVE); URINE BLOOD NEGATIVE (NEGATIVE); URINE GLUCOSE (UA) NEGATIVE (NEGATIVE); URINE LEUKOCYTE ESTERASE NEGATIVE Leu/uL (NEGATIVE); URINE PROTEIN NEGATIVE mg/dL (<30 mg/dL); URINE UROBILINOGEN 0.2 E.U./dL (<1 E.U./dL)
[2018-01-22 01:37] LABS: URINE APPEARANCE CLEAR (CLEAR); URINE COLOR YELLOW (YELLOW)
[2018-01-22 01:56] LABS: BENZODIAZEPINES, UR NEGATIVE (NEGATIVE)
[2018-01-22 02:01] LABS: BARBITURATES, UR NEGATIVE (NEGATIVE); OPIATES, UR NEGATIVE (NEGATIVE); PHENCYCLIDINE, UR NEGATIVE (NEGATIVE)
[2018-01-22 02:27] VITALS: BP 150/86; PULSE 90; O2SAT 96
--- NOTE | 2018-01-22 09:23 | RAD ---
Date of service: 01/21/2018 HISTORY: psych eval COMPARISON: 10/01/2017 FINDINGS: LUNGS: No active pulmonary disease. PLEURA: No significant pleural effusion identified, no pneumothorax apparent. CARDIOVASCULAR: No aortic atherosclerotic calcification present. Normal cardiac size. No pulmonary vascular congestion. OSSEOUS STRUCTURES: No significant abnormalities. VISUALIZED UPPER ABDOMEN: Normal. OTHER FINDINGS: None. IMPRESSION: No active disease.
--- NOTE | 2018-01-22 18:56 | CARD ---
APPROVED REPORT Date of service: 01/21/2018 EKG Measurement Heart [id number] <Conclusion> Sinus tachycardia Otherwise normal ECG
== END 2018-01-22 02:27 | disposition home or self-care (01) ==
LOC: ED 23:21
DX: F31.9 Bipolar disorder, unspecified (principal); I10 Essential (primary) hypertension

== ENCOUNTER 2018-01-31 22:54 | Emergency (ER) | payer MEDICAID ==
[2018-01-31 22:54] VITALS: BMI 42.5
[2018-01-31 23:12] VITALS: RESP 18; TEMP 97.8
--- NOTE | 2018-02-01 00:44 | ED PDOC ---
Arrival/HPI - General Chief Complaint: Trauma Time Seen by Provider: 01/31/18 23:25 Historian: Patient - History of Present Illness Narrative History of Present Illness (Text): 02/01/18 03:27 32 y/o male with PMH of bipolar disorder, depression, substance abuse presents to the ED c/o posterior headache x 1 day. Pt states he fell down some stairs yesterday, hitting his head. Denies LOC. Pt was evaluated at [facility] yesterday after the incident and diagnosed with head contusion. Pt does not have results of diagnostic testing with him at this time. Pt states he feels "out of it" today and headache worsened. Associated mild neck pain. Has not taken any medication for pain. Denies fevers, chills, lightheadedness, dizziness, vision changes, back pain, numbness, paresthesias, weakness, chest pain, palpitations, SOB, or any other associated symptoms. Past Medical History - Provider Review Nursing Documentation Reviewed: Yes - Infectious Disease Hx of Infectious Diseases: None - Tetanus Immunization Tetanus Immunization: Up to Date - Cardiac Hx Hypertension: Yes - Pulmonary Hx Respiratory Disorders: No - Neurological Hx Seizures: No - HEENT Hx HEENT Disorder: No - Renal Hx Renal Disorder: No - Endocrine/Metabolic Hx Endocrine Disorders: No - Hematological/Oncological Hx Blood Disorders: No - Integumentary Hx Dermatological Disorder: No - Musculoskeletal/Rheumatological Hx Musculoskeletal Disorders: No Hx Falls: No - Gastrointestinal Hx Gastrointestinal Disorders: No - Genitourinary/Gynecological Hx Sexually Transmitted Diseases: No - Psychiatric Hx Anxiety: Yes Hx Bipolar Disorder: Yes Hx Depression: Yes Hx Post Traumatic Stress Disorder: Yes Hx Substance Use: Yes - Anesthesia Hx Anesthesia: No Hx Anesthesia Reactions: No Hx Malignant Hyperthermia: No Family/Social History - Physician Review Nursing Documentation Reviewed: Yes Family/Social History: No Known Family HX Smoking Status: Current Some Days Smoker Hx Alcohol Use: Yes Hx Substance Use: Yes Substance used: "WEED AND [place]" Allergies/Home Meds Allergies/Adverse Reactions: Allergies No Known Allergies Allergy (Verified 10/18/17 13:20) Review of Systems - Physician Review All systems were reviewed & negative as marked: Yes - Review of Systems Constitutional: Normal. absent: Fatigue, Fevers Eyes: Normal. absent: Vision Changes, Photophobia ENT: Normal. absent: Sore Throat, Sinus Congestion Respiratory: Normal. absent: SOB, Cough Cardiovascular: Normal. absent: Chest Pain, Palpitations, Syncope Gastrointestinal: Normal. absent: Abdominal Pain, Nausea, Vomiting Genitourinary Male: Normal. absent: Dysuria, Frequency Musculoskeletal: Neck Pain. absent: Back Pain Skin: Normal. absent: Rash, Laceration Neurological: Headache. absent: Dizziness, Focal Weakness, Gait Changes, Speech Changes, Facial Droop, Disequilibrium, Seizure Endocrine: Normal Hemo/Lymphatic: Normal Psychiatric: Normal Physical Exam Vital Signs Reviewed: Yes Vital Signs Temp Pulse Resp BP Pulse Ox 01/31/18 23:10 97.8 F 96 H 18 121/75 97 Temperature: Afebrile Blood Pressure: Normal Pulse: Regular Respiratory Rate: Normal Appearance: Positive for: Well-Appearing, Non-Toxic, Comfortable Pain Distress: None Mental Status: Positive for: Alert and Oriented X 3 - Systems Exam Head: Present: Atraumatic, Normocephalic Pupils: Present: PERRL Extroacular Muscles: Present: EOMI Conjunctiva: Present: Normal Ears: Present: Normal, NORMAL TM. No: Other (hemotympanum) Mouth: Present: Moist Mucous Membranes Pharnyx: Present: Normal. No: ERYTHEMA, EXUDATE Nose (External): Present: Atraumatic Nose (Internal): Present: Normal Inspection, No Active Bleeding, Clear Mucous Neck: Present: Normal Range of Motion, MIDLINE TENDERNESS. No: Meningeal Signs, Paraspinal Tenderness, Lymphadenopathy Respiratory/Chest: Present: Clear to Auscultation, Good Air Exchange. No: Respiratory Distress, Accessory Muscle Use, Decreased Breath Sounds Cardiovascular: Present: Regular Rate and Rhythm, Normal S1, S2, Peripheal Pulses Present. No: Murmurs Abdomen: Present: Normal Bowel Sounds. No: Tenderness, Distention, Peritoneal Signs Back: Present: Normal Inspection. No: CVA Tenderness, Midline Tenderness, Paraspinal Tenderness Upper Extremity: Present: Normal Inspection, Normal ROM, NORMAL PULSES, Neurovascularly Intact, Capillary Refill < 2s. No: Cyanosis, Edema Lower Extremity: Present: Normal Inspection, CALF TENDERNESS, NORMAL PULSES, Normal ROM, Tenderness (mild lateral left ankle), Swelling (mild lateral left ankle), Neurovascularly Intact, Capillary Refill < 2 s, Other (NO bony point tenderness; pt able to weight bear and ambulate). No: Edema, Erythema, Deformity, Temperature Abnormalties Neurological: Present: GCS=15, CN II-XII Intact, Speech Normal, Motor Func Grossly Intact, Normal Sensory Function, Gait Normal, Memory Normal Skin: Present: Warm, Dry, Normal Color. No: Rashes Lymphatic: No: Cervical Adenopathy Psychiatric: Present: Alert, Oriented x 3, Normal Insight, Normal Concentration, Normal Affect, Normal Mood Medical Decision Making ED Course and Treatment: Initial Plan: * Head CT * Cervical Spine CT * Tylenol Head CT: negative Cervical Spine CT: negative Offered left ankle Xray. Patient refused, states that he had an Xray yesterday and was diagnosed with a sprain. Offered patient splint or KELSY bandage, patient refuses. Will give patient podiatry followup. Patient given printed copies of CT results upon request. Plan of care discussed with patient, and strict instructions given regarding importance of follow up, and signs to return to Emergency Department, to include vision changes, dizziness, vomiting, or any other new/worsening symptoms. Patient verbalizes understanding of discussion. Patient A&Ox3, ambulating with steady gait, stable for discharge home. - RAD Interpretation Narrative RAD Interpretations (Text): 02/01/18 00:[address]: Findings: Normal craniovertebral junction. Normal anterior atlantoaxial articulation. Normal odontoid process. Normal cervical lordosis. Normal vertebral bodies and posterior osseous elements. C2-3: Normal endplates. Normal disc height and morphology. Normal bilateral uncovertebral and apophyseal joints. Normal central canal and intervertebral neuroforamina. C3-4: Normal endplates. Normal disc height and morphology. Normal bilateral uncovertebral and apophyseal joints. Normal central canal and intervertebral neuroforamina. C4-5: Normal endplates. Normal disc height and morphology. Normal bilateral uncovertebral and apophyseal joints. Normal central canal and intervertebral neuroforamina. C5-6: Normal endplates. Normal disc height and morphology. Normal bilateral uncovertebral and apophyseal joints. Normal central canal and intervertebral neuroforamina. C6-7: Normal endplates. Normal disc height and morphology. Normal bilateral uncovertebral and apophyseal joints. Normal central canal and intervertebral neuroforamina. C7-T1: Normal endplates. Normal disc height and morphology. Normal bilateral uncovertebral and apophyseal joints. Normal central canal and intervertebral neuroforamina. Normal visualized soft tissue structures. IMPRESSION: Normal unenhanced CT examination of the cervical spine. Head CT: CLINICAL INDICATION: Headache. TECHNIQUE: Axial and reformatted sagittal and coronal images of the brain obtained without IV contrast administration. Normal size of the ventricles and extra-axial spaces for the patient's age. Normal white matter tracts of the supratentorial brain. Normal basal ganglia and thalami. Normal brainstem. Normal cerebellum. There is no demonstrated extra-axial, intraparenchymal, or intraventricular hemorrhage. There are no findings of an acute ischemic infarction. Normal calvarium. There is no demonstrated fracture. Normal soft tissue structures. Chronic mucosal inflammatory changes of the sphenoid sinuses. Normal remaining visualized paranasal sinuses. IMPRESSION: Normal unenhanced CT scan of the brain. Chronic sphenoid sinusitis. Radiology Orders: 01/31/18 23:15 CERVICAL SPINE W/O CONTRAST [CT] Stat HEAD W/O CONTRAST [CT] Stat Disposition/Present on Arrival - Present on Arrival Any Indicators Present on Arrival: No History of DVT/PE: No History of Uncontrolled Diabetes: No Urinary Catheter: No History of Decub. Ulcer: No History Surgical Site Infection Following: None - Disposition Have Diagnosis and Disposition been Completed?: Yes Diagnosis: Post concussion syndrome Disposition: HOME/ ROUTINE Disposition Time: 01:05 Patient Plan: Discharge Condition: STABLE Discharge Instructions (ExitCare): Postconcussion Syndrome Additional Instructions: Increase fluids to stay hydrated Tylenol/ibuprofen for pain Rest, no strenuous activity Limit screen time Followup with primary doctor within 2 days Return to ER for any new/worsening symptoms Referrals: Podiatry Clinic [Outside] - Follow up with primary Jayleen Frost MD [Primary Care Provider] - Follow up with primary Forms: [employer] (Polish), WORK NOTE
[2018-02-01 01:29] VITALS: BP 120/79; PULSE 92; O2SAT 100
--- NOTE | 2018-02-01 09:55 | CT ---
Date of service: 01/31/2018 PROCEDURE: CT HEAD WITHOUT CONTRAST. HISTORY: headache COMPARISON: None available. TECHNIQUE: Axial computed tomography images were obtained through the head/brain without intravenous contrast. Radiation dose: Total exam DLP = 866.84 mGy-cm. This CT exam was performed using one or more of the following dose reduction techniques: Automated exposure control, adjustment of the mA and/or kV according to patient size, and/or use of iterative reconstruction technique. FINDINGS: HEMORRHAGE: No intracranial hemorrhage. BRAIN: No mass effect or edema. No atrophy or chronic microvascular ischemic changes. VENTRICLES: Unremarkable. No hydrocephalus. CALVARIUM: Unremarkable. PARANASAL SINUSES: There is opacification of the sphenoid sinus MASTOID AIR CELLS: Unremarkable as visualized. No inflammatory changes. OTHER FINDINGS: The report concurs with the preliminary [facility] report IMPRESSION: No acute intracranial findings
--- NOTE | 2018-02-01 09:57 | CT ---
Date of service: 01/31/2018 PROCEDURE: CT Cervical Spine without contrast HISTORY: neck pain COMPARISON: None available. TECHNIQUE: Axial computed tomography images were obtained of the cervical spine without the use of intravenous contrast. Coronal and sagittal reformatted images were created and reviewed. Radiation dose: Total exam DLP = 659.48 mGy-cm. This CT exam was performed using one or more of the following dose reduction techniques: Automated exposure control, adjustment of the mA and/or kV according to patient size, and/or use of iterative reconstruction technique. FINDINGS: VERTEBRAE: No fracture. Normal alignment. No destructive bony lesion. DISCS/SPINAL CANAL/NEURAL FORAMINA: No significant central canal or neural foraminal stenosis. Discs heights are grossly preserved. PARASPINAL SOFT TISSUES: Unremarkable. OTHER FINDINGS: The report concurs with the preliminary [facility] report IMPRESSION: Unremarkable CT of the cervical spine.
== END 2018-02-01 01:06 | disposition home or self-care (01) ==
LOC: ED 22:54
DX: F07.81 Postconcussional syndrome (principal)

== ENCOUNTER 2018-02-04 23:39 | Emergency (ER) | payer MEDICAID ==
--- NOTE | 2018-02-04 23:46 | ED PDOC ---
Arrival/HPI - General Historian: Patient, EMS - History of Present Illness Narrative History of Present Illness (Text): 02/04/18 23:41 32 y/o male, no significant pmh, nkda, psychiatric history of bipolar, biba, c/o posterior headache x 1 week. Pt. stated that he had a fall in the dark which he slipped and landed on the posterior head, sustained headache, came to this ER on 01/31/2018, negative CT head, headache persist, never have neurologist follow up, still having headache, stated that he still doesn't feel well, admits nausea/vomiting/forgetful, not the worst headache or his life, no other medical or psychological complaints, no auditory or visual hallucinations. Past Medical History - Provider Review Nursing Documentation Reviewed: Yes - Infectious Disease Hx of Infectious Diseases: None - Tetanus Immunization Tetanus Immunization: Up to Date - Cardiac Hx Hypertension: Yes - Pulmonary Hx Respiratory Disorders: No - Neurological Hx Seizures: No - HEENT Hx HEENT Disorder: No - Renal Hx Renal Disorder: No - Endocrine/Metabolic Hx Endocrine Disorders: No - Hematological/Oncological Hx Blood Disorders: No - Integumentary Hx Dermatological Disorder: No - Musculoskeletal/Rheumatological Hx Musculoskeletal Disorders: No Hx Falls: No - Gastrointestinal Hx Gastrointestinal Disorders: No - Genitourinary/Gynecological Hx Sexually Transmitted Diseases: No - Psychiatric Hx Anxiety: Yes Hx Bipolar Disorder: Yes Hx Depression: Yes Hx Post Traumatic Stress Disorder: Yes Hx Substance Use: Yes - Anesthesia Hx Anesthesia: No Hx Anesthesia Reactions: No Hx Malignant Hyperthermia: No Family/Social History - Physician Review Nursing Documentation Reviewed: Yes Family/Social History: Unknown Family HX Smoking Status: Current Some Days Smoker Hx Alcohol Use: Yes Hx Substance Use: Yes Substance used: "WEED AND [place]" Allergies/Home Meds Allergies/Adverse Reactions: Allergies No Known Allergies Allergy (Verified 10/18/17 13:20) Review of Systems - Review of Systems Constitutional: absent: Fatigue, Fevers Eyes: absent: Vision Changes ENT: absent: Hearing Changes Respiratory: absent: SOB, Cough Cardiovascular: absent: Chest Pain Gastrointestinal: Nausea. absent: Abdominal Pain, Diarrhea, Vomiting Musculoskeletal: absent: Arthralgias, Back Pain Skin: absent: Rash, Pruritis Neurological: Headache. absent: Dizziness Psychiatric: absent: Anxiety, Depression, Suicidal Ideation Physical Exam Pain Distress: Moderate Mental Status: Positive for: Alert and Oriented X 3 - Systems Exam Head: Present: Atraumatic, Normocephalic. No: Tenderness, Contusion, Swelling, Ecchymosis, Abrasion, Laceration, Other Pupils: Present: PERRL Extroacular Muscles: Present: EOMI Conjunctiva: Present: Normal Mouth: Present: Moist Mucous Membranes Nose (External): Present: Atraumatic. No: Abrasion, Contusion, Laceration Nose (Internal): Present: Normal Inspection, No Active Bleeding. No: Rhinorrhea, Epistaxis Neck: Present: Normal Range of Motion, Trachea Midline. No: Meningeal Signs, MIDLINE TENDERNESS, Paraspinal Tenderness, Lymphadenopathy Respiratory/Chest: Present: Clear to Auscultation, Good Air Exchange. No: Respiratory Distress, Accessory Muscle Use Cardiovascular: Present: Regular Rate and Rhythm, Normal S1, S2. No: Murmurs Abdomen: No: Tenderness, Distention, Peritoneal Signs Back: Present: Normal Inspection Upper Extremity: Present: Normal Inspection. No: Cyanosis, Edema Lower Extremity: Present: Normal Inspection. No: Edema Neurological: Present: GCS=15, CN II-XII Intact, Speech Normal, Motor Func Grossly Intact, Gait Normal, Memory Normal Skin: Present: Warm, Dry, Normal Color. No: Rashes Psychiatric: Present: Alert, Oriented x 3, Normal Insight, Normal Concentration Medical Decision Making ED Course and Treatment: 02/04/18 23:52 -Labs -CT head -IV Reglan/benadryl -Observe and reassess 02/05/18 02:06 -CT Head: No acute intraparenchymal hemorrhage. No mass lesion. No CT evidence for acute territorial infarct. No midline shift or extra-axial collections. -Labs show no acute findings -Mg show no acute findings -Alcohol show no acute findings -Pt. feels much better but request more pain med, toradol IV ordered. All labs/radiology results discussed, request to be discharged home. -Discharge home with fioriocet, avoid driving or operating any machine, follow up with neurologist and pmd within 2 days, rest with plenty of sleep, avoid spending excessive time on TV/cellphone, return to the ER for any new or worsening signs or symptoms. - RAD Interpretation Radiology Orders: EXAM: CT Head without Intravenous Contrast. CLINICAL HISTORY: Fall, posterior headache TECHNIQUE: Axial computed tomography images of the head/brain without intravenous contrast. 908.44 mGy-cm COMPARISON: None provided. FINDINGS: BRAIN No acute intraparenchymal hemorrhage. No mass lesion. No CT evidence for acute territorial infarct. No midline shift or extra-axial collections. VENTRICLES: No hydrocephalus. ORBITS: The orbits are unremarkable. SINUSES AND MASTOIDS: The paranasal sinuses and mastoid air cells are clear. BONES: No fracture. SOFT TISSUES: Unremarkable. IMPRESSION: No acute intracranial abnormality. Electronically signed on Feb 05, 2018 2:03:00 AM EST by: Phoenix Morgan M.D., ALLIE Certified By [facility] & [facility] Fellowship Trained MRI and CT Specialist Shoeshiner: Radiologist - PA / INFANT BABYSITTER / Resident Statement MD/DO has reviewed & agrees with the documentation as recorded. Disposition/Present on Arrival - Present on Arrival Any Indicators Present on Arrival: No History of DVT/PE: No History of Uncontrolled Diabetes: No Urinary Catheter: No History of Decub. Ulcer: No History Surgical Site Infection Following: None - Disposition Have Diagnosis and Disposition been Completed?: Yes Diagnosis: Post concussion syndrome, Post-concussion headache Disposition: HOME/ ROUTINE Disposition Time: 02:06 Patient Plan: Discharge Condition: IMPROVED Discharge Instructions (ExitCare): Postconcussion Syndrome Additional Instructions: -Discharge home with fioriocet, avoid driving or operating any machine, follow up with neurologist and pmd within 2 days, rest with plenty of sleep, avoid spending excessive time on TV/cellphone, return to the ER for any new or worsening signs or symptoms. Prescriptions: Acetaminophen/Butalbital/Caf [Fioricet] 1 tab PO QID PRN #30 tab PRN Reason: Other Referrals: Jayleen Frost MD [Primary Care Provider] - Follow up with primary Karlos Mendes MD [Staff Provider] - Follow up with primary Forms: WORK NOTE
[2018-02-04 23:47] VITALS: BMI 42.5
[2018-02-04] MEDS ORDERED: DiphenhydrAMINE 50 mg/ml Inj IVP STA (23:47)
[2018-02-04] MEDS ORDERED: Sodium Chloride 0.9% 1,000 ML IV STA (23:48)
[2018-02-04 23:53] VITALS: RESP 18; TEMP 98.3
[2018-02-05 00:05] LABS: BASO # 0.02 K/mm3 (0.0-2.0); BASO % 0.2 % (0.0-3.0); EOS # 0.2 (0.0-0.7); EOS % 1.9 % (1.5-5.0); GRAN # 6.27 (1.4-6.5); GRAN % 59.3 % (50.0-68.0); HEMOGLOBIN 15.4 g/dL (14.0-18.0); LYMPH # 3.3 (1.2-3.4); LYMPH % 31.5 % (22.0-35.0); MEAN CELL VOLUME 90.2 fl (80.0-105.0); MEAN CORPUSCULAR HEMOGLOBIN 31.4 pg (25.0-35.0); MEAN CORPUSCULAR HGB CONC 34.8 g/dl (31.0-37.0); MEAN PLATELET VOLUME 11.1 fl (7.0-11.0); MONO # 0.8 (0.1-0.6); MONO % 7.1 % (1.0-6.0); RBC 4.91 10^6/uL (3.5-6.1); RED CELL DISTRIBUTION WIDTH 12.4 % (11.5-14.5); WHITE BLOOD COUNT 10.6 10^3/uL (4.5-11.0)
[2018-02-05 00:21] LABS: ALB/GLOB RATIO 1.3 (1.1-1.8); ALBUMIN 4.7 g/dL (3.0-4.8); ALT/SGPT 53 U/L (7-56); AST/SGOT 33 U/L (17-59); BLOOD UREA NITROGEN 16 mg/dL (7-21); CALCIUM 9.6 mg/dL (8.4-10.5); GFR NON-AFRICAN AMERICAN > 60
[2018-02-05 02:18] VITALS: BP 135/79; PULSE 87; O2SAT 100
--- NOTE | 2018-02-05 09:38 | CT ---
Date of service: 02/05/2018 PROCEDURE: CT HEAD WITHOUT CONTRAST. HISTORY: fall, posterior headache COMPARISON: None available. TECHNIQUE: Axial computed tomography images were obtained through the head/brain without intravenous contrast. Radiation dose: Total exam DLP = 908.44 mGy-cm. This CT exam was performed using one or more of the following dose reduction techniques: Automated exposure control, adjustment of the mA and/or kV according to patient size, and/or use of iterative reconstruction technique. FINDINGS: HEMORRHAGE: No intracranial hemorrhage. BRAIN: No mass effect or edema. No atrophy or chronic microvascular ischemic changes. VENTRICLES: Unremarkable. No hydrocephalus. CALVARIUM: Unremarkable. PARANASAL SINUSES: Unremarkable as visualized. No significant inflammatory changes. MASTOID AIR CELLS: Unremarkable as visualized. No inflammatory changes. OTHER FINDINGS: None. IMPRESSION: Normal CT of the Head.
== END 2018-02-05 02:17 | disposition home or self-care (01) ==
LOC: ED 23:39
DX: F07.81 Postconcussional syndrome (principal); G44.309 Post-traumatic headache, unspecified, not intractable; I10 Essential (primary) hypertension
CPT/HCPCS: 70450; 80053; 80320; 83735; 85025; 96361; 96374; 96375; 99285; J1200; J1885; J2765; J7030